=== PATIENT | male | born 1950 | race Caucasian/White ===

== ENCOUNTER 2021-07-20 08:21 | Outpatient (CLI) | payer MEDICARE, OTHER, SELFPAY ==
--- NOTE | 2021-07-20 08:25 | USCV_ITS ---
Yandel Jennings Age: 70 Gender: M : 1950 Exam Date: 07/20/2021 08:42 Ordering Phys: Marivel Taylor NP Technologist: [place] [facility] [place]: short of breath BP: 150 / 85 HR: 58 Rhythm: Other Technical Quality: Adequate MEASUREMENTS (Male / Female) Normal Values 2D ECHO LV Diastolic Diameter PLAX 5.1 cm 4.2 - 5.9 / 3.9 - 5.3 cm LV Systolic Diameter PLAX 3.2 cm IVS Diastolic Thickness 1.2 cm 0.6 - 1.0 / 0.6 - 0.9 cm IVS Systolic Thickness 1.3 cm LVPW Diastolic Thickness 1.0 cm 0.6 - 1.0 / 0.6 - 0.9 cm LVPW Systolic Thickness 1.3 cm LVOT Diameter 2.1 cm LV Ejection Fraction 2D Teich 62.0 % LV Ejection Fraction MOD 2C 60.1 % LV Ejection Fraction 2C AL 59.5 % LA Diameter 4.3 cm M-MODE MV E Point Septal Separation 0.9 cm DOPPLER AV Peak Velocity 202.0 cm/s LVOT Peak Velocity 109.0 cm/s AV Area Cont Eq vti 1.5 cm squared AV Area Cont Eq pk 1.8 cm squared MV Area PHT 5.0 cm squared Mitral E to A Ratio 1.0 MV E' Velocity 54.0 cm/s Mitral E to MV E' Ratio 11.9 Mitral E to LV E' Lateral Ratio 11.3 Mitral E to LV E' Septal Ratio 12.7 TR Peak Velocity 244.2 cm/s TR Peak Gradient 23.9 mmHg TV Peak E Velocity 130.0 cm/s Right Atrial Pressure 3.0 mmHg Pulmonary Artery Systolic Pressu 26.9 mmHg PV Peak Velocity 115.0 cm/s FINDINGS Left Ventricle Normal left ventricular size. LV systolic function is normal with EF of 55-60%. No regional wall motion abnormalities. Right Ventricle The right ventricle is normal in size and function. Right Atrium The right atrium is dilated Left Atrium The left atrium is dilated Mitral Valve Structurally normal mitral valve without significant stenosis or prolapse. There is mild mitral regurgitation. Aortic Valve Aortic valve is thickened without significant stenosis. There is no aortic regurgitation. Tricuspid Valve Structurally normal tricuspid valve without significant stenosis. Mild tricuspid regurgitation. Pulmonic Valve Structurally normal pulmonic valve without significant stenosis. There is no pulmonic regurgitation. Pericardium Normal pericardium without effusion. Aorta Normal ascending aorta dimension. IVC CONCLUSIONS LV systolic function is normal with EF of 55-60% Biatrial enlargement Mild mitral regurgitation. Aortic valve is thickened however no significant stenosis. Mild tricuspid regurgitation. Compared to prior echocardiogram from 03/03/2016, no significant changes are seen Farhat Munoz MD (Electronically Signed) Final Date: 01 August 2021 13:56 S
== END 2021-07-20 08:22 | disposition home or self-care (01) ==
LOC: RAD 08:22
PROVIDERS: Family Provider Family Medicine; PCP Family Medicine; Visit Provider Nurse Practitioner Family
DX: I25.10 Atherosclerotic heart disease of native coronary artery without angina pectoris (principal); I10 Essential (primary) hypertension; I08.3 Combined rheumatic disorders of mitral, aortic and tricuspid valves
CPT/HCPCS: 93306

== ENCOUNTER → 2021-08-06 08:59 | Outpatient (BNVA) | payer MEDICARE, OTHER, SELFPAY | PROVIDERS: Family Provider Family Medicine; PCP Nurse Practitioner Family; Visit Provider Nurse Practitioner Family | DX: I25.10 Atherosclerotic heart disease of native coronary artery without angina pectoris (principal); I10 Essential (primary) hypertension; F17.210 Nicotine dependence, cigarettes, uncomplicated | CPT/HCPCS: 99214 ==

== ENCOUNTER 2021-09-04 09:39 | Outpatient (CLI) | payer MEDICARE, OTHER, SELFPAY ==
[2021-09-04 10:22] VITALS: BMI 25.6
--- NOTE | 2021-09-04 10:22 | ECG_ITS ---
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 Interpretive Statements NAME OF STUDY: LEXISCAN SESTAMIBI STRESS TEST INDICATION: [Shortness of Breath, ] Procedure: At the baseline, the blood pressure was 155/73 mmHg with a heart rate of 48 bpm. The electrocardiogram showed sinus bradycardia, normal axis with normal ST and T's. The Lexiscan was infused over a period of 20 seconds. A total of 0.4 mg of Lexiscan was infused. The stress phase was continued for a total of 5 minutes. Heart rate was at the end of stress phase was 62 bpm and a blood pressure of 153/63 mmHg. The EKG at the peak infusion revealed since normal sinus rhythm with no significant ST-T wave changes. Sestamibi was injected 20 seconds after the Lexiscan infusion. Blood pressure at the end of recovery phase was 153/63 mmHg with a heart rate of 62 bpm. Conclusion: 1. Normal EKG response to Lexiscan infusion 2. No Lexiscan induced chest pain or cardiac arrhythmia. 3. Normal blood pressure and heart rate response. 4. Sestamibi/sestamibi perfusion scan pending; see separate report. Electronically Signed On 09-15-2021 12:23:39 CDT by Farhat Munoz M.D. [email or web address]
--- NOTE | 2021-09-04 10:23 | NMCV_ITS ---
NM dante perf SPECT r/s* [id number] Yandel Jennings Age: 71 Gender: M : 1950 Exam Date: 09/04/2021 11:31 Ordering Phys: Marivel Taylor NP Technologist: DAVID Meza Exam Location: [facility] Indications: CHEST PAIN STRESS TEST Please see separate stress test report [facility] for full findings IMAGE PROTOCOL Rest/Stress 1 Lexiscan Day Radiopharmaceutical Dose (mCi) Administration Site Administered by Rest: Tc-99m 10.6 IV DAVID Carpenter Sestamibi Stress:Tc-99m 32.5 IV DAVID Carpenter Sestamibi Rest: 04-Sep-2021 60 Discovery 630 Stress: 04-Sep-2021 30 Discovery 630 0.4mg Lexiscan. Images obtained in supine and prone position. SPECT RESULTS Technical Quality: Excellent Raw Data Analysis: Normal Image Corrections: No attenuation or motion correction applied Summed Stress Score: 8 Summed Rest Score: 10 Summed Difference Score: 1 PERFUSION FINDINGS There is a large sized, mostly fixed perfusion defect seen in the apical inferior, inferior and inferolateral wall. 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 FUNCTIONAL RESULTS (calculated via Gated SPECT) Stress Image LV EF (%): 54 Stress EDV (mL):144 TID: 1.09 Stress ESV (mL):66 FUNCTIONAL FINDINGS: There is normal left ventricular systolic function. IMPRESSIONS 1. Abnormal myocardial perfusion imaging with large sized infarct seen in left circumflex artery and RCA territory with small area of nany-infarct ischemia in the RCA territory. 2. LV systolic function is normal. Farhat Munoz MD (Electronically Signed) Final Date: 06 September 2021 10:35 S
[2021-09-04] MEDS: regadenoson 0.4 Mg/5 ml Syringe IVP (11:55)
[2021-09-04 12:18] VITALS: BP 153/67; PULSE 60
== END 2021-09-04 09:40 | disposition home or self-care (01) ==
LOC: CDL 09:42
PROVIDERS: PCP Nurse Practitioner Family; Visit Provider Nurse Practitioner Family
DX: I25.10 Atherosclerotic heart disease of native coronary artery without angina pectoris (principal); I10 Essential (primary) hypertension; R07.89 Other chest pain
CPT/HCPCS: 78452; 93017; A9500; J2785

== ENCOUNTER → 2021-09-19 11:01 | Outpatient (BNVA) | payer MEDICARE, OTHER, SELFPAY | PROVIDERS: PCP Nurse Practitioner Family; Visit Provider Internal Medicine Cardiovascular Disease | DX: R94.39 Abnormal result of other cardiovascular function study (principal); I25.118 Atherosclerotic heart disease of native coronary artery with other forms of angina pectoris; I10 Essential (primary) hypertension; E78.49 Other hyperlipidemia; R06.02 Shortness of breath; F17.210 Nicotine dependence, cigarettes, uncomplicated | CPT/HCPCS: 99214 ==

== ENCOUNTER 2021-09-27 08:42 | Outpatient (CLI) | payer MEDICARE, OTHER, SELFPAY ==
[2021-09-27 09:10] LABS: Basophils # 0.1 10^3/uL (0.0-0.1); Basophils % 0.8 %; Eosinophils # 0.4 10^3/uL (0.0-0.8); Eosinophils % 3.2 %; Hematocrit 43.6 % (42.0-52.0); Lymphocytes # 1.1 10^3/uL (0.8-4.8); Lymphocytes % 9.4 %; Mean Corpuscular HGB Conc 34.4 g/dL (30.0-36.0); Mean Corpuscular Hemoglobin 33.4 pg (28.0-34.0); Mean Corpuscular Volume 97.1 fl (80-94); Mean Platelet Volume 9.3 fL (7.4-10.4); Monocytes # 0.9 10^3/uL (0.2-0.9); Monocytes % 7.9 %; Neutrophils # 9.25 10^3/uL (1.8-7.7); Neutrophils % 78.3 %; Nucleated Red Blood Cells % 0 %; Platelet Count 378 10^3/cmm (130-400); Red Blood Count 4.49 10^6/uL (4.1-5.3); Red Cell Distribution Width 13.7 % (12.1-15.1); White Blood Count 11.8 10^3/uL (4.0-10.0)
[2021-09-27 09:39] LABS: INR 1.03 (0.83-1.21); Prothrombin Time (Patient) 13.8 Seconds (12.0-15.1)
[2021-09-27 09:56] LABS: Anion Gap 12.6 (5-19); Blood Urea Nitrogen 15 mg/dL (8-23); Calcium 8.9 mg/dL (8.5-10.5); Carbon Dioxide 28 mmol/L (22-29); Chloride 96 mmol/L (98-107); Glucose 245 mg/dL (65-115); Osmolality Calculated 285 mOsm/kg (285-295); Potassium 3.6 mmol/L (3.5-5.1); Sodium 133 mmol/L (136-145)
== END 2021-09-27 08:43 | disposition home or self-care (01) ==
LOC: LAB 08:45
PROVIDERS: PCP Nurse Practitioner Family; Visit Provider Internal Medicine Cardiovascular Disease
DX: R94.39 Abnormal result of other cardiovascular function study (principal); I25.10 Atherosclerotic heart disease of native coronary artery without angina pectoris
CPT/HCPCS: 36415; 80048; 85025; 85610; 86850; 86900

== ENCOUNTER 2021-10-01 05:53 | Outpatient (CLI) | payer MEDICARE, OTHER, SELFPAY ==
[2021-10-01] VITALS (42 sets, daily range): BP systolic 117–175; BP diastolic 56–81; PULSE 44–78; RESP 13–22; TEMP 36.6–36.8; O2SAT 88–95; BMI 25.7
[2021-10-01] MEDS: diphenhydrAMINE 50 mg Capsule PO (06:30)
--- NOTE | 2021-10-01 07:00 | XACV_ITS ---
Exam Room: 2 Ht: 185 cm Wt: 88 kg BSA: 2.14 m2 Gender: Male : 1950 Any Known Allergies: Codeine Exam Priority: Routine Procedure(s): Procedure Description: Diagnostic procedure Procedure Description: PCI procedure Procedure Description: Left Heart Catheterization Procedure Description: PTCA Procedure Description: Miscellaneous Procedure Description: ACT Procedure Description: Coronary Angiography Ladarius AGUILAR; Diagnostic Cath Status: Elective Diagnostic Findings * The left main is a medium caliber vessel with no significant stenotic lesions. * The left anterior descending artery is a medium caliber vessel which appears to wrap around the LV apex minimally. The proximal LAD was found to have mild diffuse intimal irregular narrowing. The mid LAD was found to have a long stented segment. The first diagonal branch appears to have its origin from the proximal end of the stented segment. There is a high-grade 90% stenosis in this area. The diagonal artery appeared to be of small to medium caliber vessel. Distal LAD was overall minimal intimal regularities. * Left circumflex artery artery is a medium caliber vessel which appears to give off a very high obtuse marginal branch. This artery appears to bifurcate proximally. One of the bifurcation branches was found to have around 40 to 50% stenosis at the ostium. The circumflex proper appears to bifurcate at the mid segment. No significant stenotic lesions were noted in these vessels. * The right coronary artery is a medium caliber dominant vessel which appears to have extensive stenting from proximal to distal segment. Right after the first RV branch, the stented segment was found to have a high-grade in-stent stenosis of around 95%. The proximal RCA was found to have around 30% narrowing proximally. The PDA branch was found to have no significant stenotic lesions. PCI Status: Urgent PCI Indication: Other Interventional Findings * PROCEDURE NOTE: We engaged RCA with JR4 guide catheter. IV heparin was administered to maintain ACT above 250 S. 0.014 run-through guidewire was used to cross mid RCA stenosis. We used 3.5 x 12 mm NC balloon to dilate the severe mid RCA stenosis. Same balloon was used to perform balloon angioplasty of the stent in the proximal RCA. At this time final angiogram was performed that showed excellent stent expansion, no residual stenosis and YEHUDA-3 flow. Wire and guide catheter were removed. 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 * Proximal Right Coronary Artery: 70% stenosis treated with a MDT NC EUPHORA RX [id number] BALLOON. 0% residual stenosis, YEHUDA: 3 flow. * Mid Right Coronary Artery: 95% stenosis treated with a MDT NC EUPHORA RX 3.05L02OG BALLOON. 0% residual stenosis, YEHUDA: 3 flow. Conclusions 1. This 71-year-old white male with a history of coronary artery disease, status post multiple PCI's, presenting with complaints of increasing episodes of chest pain. He had a Myocardial perfusion imaging which revealed areas of fixed and reversible defects with areas of possible nany-infarction ischemia mostly in the distribution of the right coronary artery. In view of his ongoing, worsening of the symptoms in order to further evaluate his coronary status, a cardiac catheterization was recommended. Patient underwent left heart catheterization with left and right coronary angiogram today. The findings are as follows. 2. The right coronary artery was found to have a high-grade in-stent stenosis in the midsegment. The proximal segment of the artery was found to have around 30% tubular narrowing. The left main has no significant obstructive lesion. Left anterior descending artery was found to have a patent stented segment in the mid portion. The first diagonal branch was found to have a high-grade ostial narrowing from 90%, coming off near to the proximal end of the stented segment in the LAD. Left circumflex artery was found to have minimal intimal irregularities and mild stenosis with no significant stenotic lesions. LVEDP was 19mmHg. 3. I reviewed and discussed the cardiac catheterization data with Dr. Munoz. It was thought to be appropriate to consider PCI of the right coronary artery lesion. The ostial diagonal lesion also may be attempted. This lesion could be technically challenging for intervention. Dr. Munoz took over further management of this patient at this point. 4. Successful revascularization of mid and proximal RCA with balloon angioplasty. Diagonal artery is small in size and the lesion is stable from before. We decided to treated medically. 5. Proximal Right Coronary Artery was treated with a Balloon. 6. Mid Right Coronary Artery was treated with a Balloon. Recommendations * Continue aspirin and Plavix. * High intensity statin therapy. * Outpatient cardiology follow up in 4 weeks. Interventional RX Recommendation: PCI w/o planned CABG Diagnostic RX Recommendation: PCI w/o planned CABG Anticoagulation: Heparin LV EDP: 19 mmHg Left Ventriculography Findings: * LV gram was not performed because of the limitations on the dye usage. The LVEDP was 19 mmHg. Pressures Phase:Rest AO : 133 / 68 ( 90 ) @ 8:22:00 AM 131 / 56 ( 84 ) @ 8:32:00 AM 135 / 51 ( 92 ) @ 8:32:00 AM 143 / 60 ( 84 ) @ 8:34:00 AM 144 / 63 ( 93 ) @ 8:52:00 AM 170 / 73 ( 105 ) @ 9:04:00 AM LV : 141 / 3 / 19 @ 8:32:00 AM 129 / 0 / 14 @ 8:32:00 AM Valves Phase:DefaultPhase AV : 0.0 @ 8:14:00 AM AV Mean Gradient: 0.0 @ 8:14:00 AM Clinical Evaluation EBL: 5mL-10mL Procedural Details Procedure Consent Obtained. Admit Source: Out Patient. Pre-Procedure Time Out. Identified patient by full name and date of as verbalized by the patient/guarantor. Does the consent match the physician's order: Yes. Accurate & Complete Informed Consent: Yes. Inpatient/Outpatient History & Physical on Chart: Yes. If H&P is completed, is and addenduem needed: N/A; If yes, is the addendum complete: N/A. Visualize and Verify Site with Patient/Guarantor: N/A. Relevant Radiology Images available: N/A. Pre-op teaching completed and patient verbalized understanding. The risks, benefits, and alternatives of sedation and/or procedure were discussed by physician. The patient agrees to continue. Procedure started. [facility] Clinical Fraility Score: 3: Managing Well. Body Make Up Artist Indications: Worsening Angina. Chest Pain Symptom Assessment: Typical Angina Symptoms. Correct patient, site and procedure confirmed by cath team. Current diagnosis: Chest Pain. PERRLA. 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 Lungs clear x 5 lobes. IV Site on Arrival: 20 gauge in the left forearm. IV Fluids: 0.9% NaCl at KVO. 0 mL infused prior to geophysical laboratory chief. Pre Procedural Pulses: right radial was 1+. Pre Procedural Pulses: right dorsalis pedis was 2+. Pre Procedural Pulses: left dorsalis pedis was 1+. Oxygen started at 2liters/min via nasal canula. right groin was prepped with chloroprep then draped in the usual sterile fashion. right radial was prepped with chloroprep then draped in the usual sterile fashion. Physician notified. Baseline sample Acquired. HR: 50 BPM. Physician arrived. Physician scrubbed in. Immediate Pre-Procedure Time Out. Correct Patient: Yes; Correct Procedure: Yes; Correct Site: Yes; Correct Patient Position: Yes; Correct Supplies: Yes; Dried Flammable Prep: Yes; Blood Products Available: N/A;. Lidocaine 1% infiltrated to the right groin. Arterial access obtained with micropuncture set. A 5 [place] JL4 catheter in over wire. Multiple views taken of left coronary artery. Catheter out. A 5 [place] JR4 catheter in over wire. Multiple views taken of right coronary artery. Catheter removed over the standard wire. Dr. Munoz notified to review cine films. A 5 [place] Angled Pig catheter in over wire. EDP Sample taken: LV 141/3,19; HR: 53 BPM; SpO2: 98%. Pullback taken: LV 129/0,14; AO 131/56(84); Mean: 0mmHg, Peak to Peak: 0mmHg, SEP: 6sec/min; HR: 50 BPM; SpO2: 99%. Catheter out. Side port of sheath attached to Normal Saline flush at KVO to maintain patency. Dr. Munoz scrubbed in to perform intervention. Sheath upsized to a 6 Fr. 6 [place] JR 4 guide catheter was inserted over the wire. Runthrough guidewire was advanced through the guide catheter to lesion in the mid RCA. Balloon inserted to lesion in the mid RCA. Inflation number : 1 A MDT NC EUPHORA RX [id number] BALLOON was prepped and advanced across the Mid RCA , then inflated to 14 KENNETH for 0:18 seconds. Inflation number: 2 The MDT NC EUPHORA RX [id number] BALLOON was reinflated across the Mid RCA, to 12 KENNETH for 0:07 seconds. Inflation number: 3 The MDT NC EUPHORA RX [id number] BALLOON was reinflated across the Mid RCA, to 16 KENNETH for 0:24 seconds. Balloon backed into the Prox RCA lesion. Inflation number: 1 The MDT NC EUPHORA RX 3.72O09HH BALLOON was reinflated across the Prox RCA, to 14 KENNETH for 0:21 seconds. Balloon out. Results checked. Balloon inserted to lesion in the prox RCA. Inflation number: 2 The MDT NC EUPHORA RX 3.43G49WT BALLOON was reinflated across the Prox RCA, to 12 KENNETH for 0:20 seconds. Balloon out. Wire out. Results checked. Guide catheter out. A Right femoral angiogram was performed to determine safe placement of closure device. ACT drawn. Results 224 seconds. Therapeutic limits - pre-heparin administration 90-150 seconds and monitoring heparin during a vascular procedure >250 seconds. Lidocaine 1% infiltrated to the right groin. A Angio-Seal VIP ([facility]) was successful obtaining hemostatsis at the Right Femoral artery insertion site. Lot # [id number] exp 05/24/2022. Angioseal placed without complications. No signs or symptoms of hematoma noted. Sterile dressing applied per usual sterile fashion. Post Procedure: Pulses reassessed and unchanged. PERRLA. 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 No VTE prophylaxis required. Medication's Wasted: Heparin = 1500 u. Medication's Wasted: Other = Fentanyl 25 mcg. Total IV fluids: 89 mL. Post-op diagnosis: Obstructive CAD. Complications: none. Estimated blood loss: 5mL-10mL. Responsiveness - Normal response to verbal stimuli; alert and oriented, PERRLA. Airway - Unaffected, no intervention required; spontaneous ventilation. Circulation: W/N/L, pulses unchanged. Nausea/Vomiting: No. Procedure completed. Patient transferred by bed to 1st floor. Vital chart was stopped. Access Site Site: Right Femoral artery Sheath Size: 5 Fr Hemostasis Method: Angio-Seal VIP ([facility]) Hemostasis Success: Successful Procedure Medications Start: 7:02 AM Stop: 7:02 AM Medication: 0.9% Saline Amount: 75 ml/hr Route: I.V. drip Start: 7:02 AM Stop: 7:02 AM Medication: Fentanyl Amount: 25 mcg Route: I.V. Start: 7:05 AM Stop: 7:05 AM Medication: Versed Amount: 1 mg Route: I.V. Start: 7:05 AM Stop: 7:05 AM Medication: Fentanyl Amount: 25 mcg Route: I.V. Start: 7:22 AM Stop: 7:22 AM Medication: Heparin Amount: 1500 units Route: I.V. Start: 7:22 AM Stop: 7:22 AM Medication: Versed Amount: 1 mg Route: I.V. Start: 7:35 AM Stop: 7:35 AM Medication: Benadryl Amount: 25 mg Route: I.V. Start: 7:51 AM Stop: 7:51 AM Medication: Heparin Amount: 7000 units Route: I.V. Start: 8:07 AM Stop: 8:07 AM Medication: Fentanyl Amount: 25 mcg Route: I.V. I, the attending physician, have reviewed and verified all procedure medications. Yes, all medications given per verbal order History/Risk Factors Hypertension: Yes Dyslipidemia: Yes Peripheral Arterial Disease (PAD): No Myocardial Infarction (NE): No Obesity: No Renal Disease: No Tobacco Use: Current/Recent(w/in 1 year) Prior Interventions PCI: Yes CABG: No Valve Surgery: No Date of PCI: 11/19/2008 Report Signatures Interventional Workflow Finalized by Farhat Munoz MD on 10/13/2021 10:03 AM Diagnostic Workflow Finalized by Dr Luly Durand MD [facility] on 10/01/2021 09:20 AM
--- NOTE | 2021-10-01 07:06 | W.PM.OPSUD ---
Surgery/Procedure H&P Update DATE OF PROCEDURE: October 01, 2021 DATE H&P PERFORMED: 09/19/21 H&P UPDATE INFORMATION: I have reviewed H&P completed within last 30 days, I have examined patient prior to procedure and No changes to prior documentation PREOP DIAGNOSIS: ASHD PRIMARY INDICATION FOR PROCEDURE: Chest pain/ abnormal stress test PLANNED PROCEDURE: Operation Date: 10/01/21 07:00 Proposed Procedures p Left Cardiac Catheterization 04447,R94.39(Left) - Luly Durand MD PATIENT REASSESSED PRIOR TO SEDATION, WITH NO CHANGE NOTED: Yes PHYSICAL EXAM: alert, oriented x 3, clear to auscultation bilaterally and regular rate & rhythm AIRWAY EVAL/ANESTHESIA PLAN: normal airway, see other exam findings, ASA III, Monitored Anesthesia, Local Anesthesia, Risks, benefits & alternatives of sedation and/or procedure discussed and Patient agrees to continue as planned
--- NOTE | 2021-10-01 08:25 | PC.NURSE ---
received patient from systems testing laboratory technician via bed patient resting with eyes closed snoring noted patient is arousable but drowsy procedure site to right groin noted no hematoma or other complications noted patient denies pain
--- NOTE | 2021-10-01 08:56 | PC.NURSE ---
patient bradycardic 45-53 at this time patient resting with eyes closed snoring is noted patient arousable to voice answers questions
--- NOTE | 2021-10-01 11:26 | PC.NURSE ---
dressing to right groin noted to have drainage, drainage continued, dressing removed incision cleaned and re dressed provider notified site remains soft with no notation of hematoma or swelling patient denies pain at site
--- NOTE | 2021-10-01 11:29 | PC.NURSE ---
spoke with providers with concerns that patient is dabetic with no accu check or sliding scale coverage instructions received to obtain accu checks and start a mod sliding scale insulin
[2021-10-01 11:31] LABS: Glucose Point of Care 122 mg/dL (70-110)
[2021-10-01] MEDS: carvedilol 12.5 mg Tablet PO (17:35)
[2021-10-01 21:02] LABS: Glucose Point of Care 161 mg/dL (70-110)
--- NOTE | 2021-10-01 21:45 | PC.NURSE ---
Patient educated of blood sugar and educated that Metformin will be on hold. Patient refusing sliding scale insulin at this time.
[2021-10-02] VITALS: BP 146/69; PULSE 50; RESP 17; TEMP 36.6; O2SAT 90
--- NOTE | 2021-10-02 00:16 | PC.NURSE ---
i reported low pulse 50 to nurse
[2021-10-02 03:43] VITALS: PULSE 50
[2021-10-02 04:00] VITALS: BP 177/83; PULSE 54; RESP 18; TEMP 36.6; O2SAT 96
--- NOTE | 2021-10-02 05:24 | PC.NURSE ---
i reported low pulse 54 to nurse
[2021-10-02 06:22] LABS: Glucose Point of Care 112 mg/dL (70-110)
[2021-10-02 07:32] VITALS: BP 184/77; PULSE 60; RESP 17; TEMP 36.8; O2SAT 97
[2021-10-02] MEDS: aspirin 81 mg EC Tablet PO (08:03)
[2021-10-02] MEDS: losartan 50 mg Tablet 100 MG PO (08:03)
[2021-10-02] MEDS: clopidogrel 75 mg Tablet PO (08:03)
[2021-10-02] MEDS: levothyroxine 175 mcg Tablet PO (08:04)
[2021-10-02] MEDS: multivitamin therapeutic Tablet 1 TAB PO (08:04)
[2021-10-02] MEDS: citalopram 20 mg Tablet 40 MG PO (08:04)
[2021-10-02] MEDS: carvedilol 12.5 mg Tablet 25 MG PO (08:04)
[2021-10-02] MEDS: primidone 50 mg Tablet PO (08:04)
[2021-10-02] MEDS: atorvastatin 40 mg Tablet 80 MG PO (08:04)
[2021-10-02] MEDS: amlodipine 10 mg Tablet PO (08:04)
[2021-10-02] MEDS: isosorbide mononitrate ER 30 mg Tablet PO (08:04)
[2021-10-02 08:36] VITALS: PULSE 78; O2SAT 92
--- NOTE | 2021-10-02 08:38 | PM.PN ---
Subjective Subjective: Patient doing well. No complaints of chest pain or shortness of breath. Femoral access site is normal Vitals/I&O/Wt Last Vital Signs Temp 98.3 F 10/02/21 07:32 Pulse 78 10/02/21 08:36 Resp 17 10/02/21 07:32 BP 184/77 10/02/21 07:32 Pulse Ox 92 10/02/21 08:36 O2 Del Method 10/02/21 08:36 Weight last 48 hrs Weight 195 lb Physical Exam Narrative: GENERAL: Patient is alert, awake and oriented x3. [] NECK: No jugular vein distension. [] HEENT: No cyanosis. No icterus. No pallor. [] HEART: Regular S1 and S2. No murmur, rub or gallop. [] LUNGS: Clear to auscultate bilaterally. [] ABDOMEN: Soft, nontender and nondistended. Positive bowel sounds. No guarding, rebound or tenderness. [] CENTRAL NERVOUS SYSTEM: Grossly nonfocal. [] EXTREMITIES: Lower extremities with no edema bilaterally. Pulses palpable in the lower extremities, both dorsalis pedis and posterior tibial. [] A&P Assessment and plan (1) Abnormal cardiovascular stress test: Status: Acute (2) CAD (coronary artery disease): Status: Acute Qualifiers: Coronary Disease-Associated Artery/Lesion type: [place] artery [place] vs. transplanted heart: [place] heart Associated angina: without angina Qualified Code(s): I25.10 - Atherosclerotic heart disease of [place] coronary artery without angina pectoris (3) HTN (hypertension): Status: Acute Qualifiers: Hypertension type: essential hypertension Qualified Code(s): I10 - Essential (primary) hypertension (4) Hyperlipidemia: Status: Acute Qualifiers: Hyperlipidemia type: other hyperlipidemia Qualified Code(s): E78.49 - Other hyperlipidemia Plan Patient treatment successful revascularization of RCA with balloon angioplasty. He is stable at this time. Continue aspirin and Plavix. High intensity statin therapy. Outpatient cardiology follow up Attestations Medical Necessity Statement*: Care not expected to cross 2 midnights. Patient had presented for outpatient coronary angiogram and underwent successful revascularization of RCA with balloon angioplasty. He is stable to be discharged and going home today. 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 transplanted heart: [place] heart Associated angina: without angina HTN (hypertension) I10 Hypertension type: essential hypertension Hyperlipidemia E78.49 Hyperlipidemia type: other hyperlipidemia
== END 2021-10-02 10:21 | disposition home or self-care (01) ==
LOC: CCL 05:54 → CSU 08:40 → MEDSURG 16:34
PROVIDERS: Internal Medicine; PCP Nurse Practitioner Family; Visit Provider Internal Medicine Cardiovascular Disease
DX: I25.118 Atherosclerotic heart disease of native coronary artery with other forms of angina pectoris (principal); I25.10 Atherosclerotic heart disease of native coronary artery without angina pectoris; I10 Essential (primary) hypertension; E78.5 Hyperlipidemia, unspecified; Z79.82 Long term (current) use of aspirin; Z79.84 Long term (current) use of oral hypoglycemic drugs; F17.210 Nicotine dependence, cigarettes, uncomplicated
CPT/HCPCS: 36415; 36416; 82962; 85347; 92920; 93452; 93458; 96360; 99152; 99153; C1725; C1760; C1769; C1887; C1894; J1200; J1644; J2250; J3010; J3490; J7030; Q0163; Q9967

== ENCOUNTER → 2021-10-09 10:14 | Outpatient (BNVA) | payer MEDICARE, OTHER, SELFPAY | PROVIDERS: PCP Nurse Practitioner Family; Visit Provider Nurse Practitioner Family | DX: I25.118 Atherosclerotic heart disease of native coronary artery with other forms of angina pectoris (principal); I10 Essential (primary) hypertension; F17.210 Nicotine dependence, cigarettes, uncomplicated | CPT/HCPCS: 80048; 99214 ==

== ENCOUNTER → 2021-12-20 11:44 | Outpatient (BNVA) | payer MEDICARE, OTHER, SELFPAY | PROVIDERS: PCP Nurse Practitioner Family; Visit Provider Internal Medicine Cardiovascular Disease | DX: I25.118 Atherosclerotic heart disease of native coronary artery with other forms of angina pectoris (principal); E78.49 Other hyperlipidemia; I10 Essential (primary) hypertension; F17.210 Nicotine dependence, cigarettes, uncomplicated | CPT/HCPCS: 99214 ==

== ENCOUNTER 2022-04-12 07:44 | Outpatient (CLI) | payer MEDICARE, OTHER, SELFPAY ==
--- NOTE | 2022-04-12 07:54 | CT_ITS ---
WS: [id number] LDCT LUNG CANCER SCREENING TECHNIQUE: Noncontrast CT of the chest with coronal and sagittal reformatted images. CLINICAL INFORMATION: HX OF TOBACCO USE COMPARISON: None. DLP: 81.40 mGy.cm DIvol: Mean CTDIvol: 1.60 (mGy) All CT scans at [facility] use at least one of these dose optimization techniques: automat ed exposure control; mA and/or kV adjustment per patient size (includes targeted exams where dose is matched to clinical indication); or iterative reconstruction. FINDINGS: Noncalcified nodule RIGHT upper lobe measuring 5 mm. A few scattered tiny subcentimeter sub pleural nodules. No other suspicious pulmonary parenchymal abnormalities. Normal caliber thoracic aorta. Aortic calcification. Coronary calcification. No mediastinal or hilar lymphadenopathy. Calcified RIGHT hilar nodes. A few calcified granulomas. Adrenal glands are normal. Cholecystectomy clips. Normal GE junction. Hypertrophic changes thoracic spine. CT/CT lung screening [id number] IMPRESSION: LUNG-RADS: 2-Benign Appearance or Behavior FOLLOW UP: 12 Month: Continue annual screening with LDCT
== END 2022-04-12 07:45 | disposition home or self-care (01) ==
LOC: RAD 07:44
PROVIDERS: PCP Nurse Practitioner Family; Visit Provider Nurse Practitioner Family
DX: Z12.2 Encounter for screening for malignant neoplasm of respiratory organs (principal); Z87.891 Personal history of nicotine dependence
CPT/HCPCS: 71271

== ENCOUNTER → 2022-04-24 12:13 | Outpatient (BNVA) | payer MEDICARE, OTHER, SELFPAY | PROVIDERS: PCP Nurse Practitioner Family; Visit Provider Internal Medicine Cardiovascular Disease | DX: R06.02 Shortness of breath (principal); I10 Essential (primary) hypertension; I25.118 Atherosclerotic heart disease of native coronary artery with other forms of angina pectoris; E78.49 Other hyperlipidemia; F17.210 Nicotine dependence, cigarettes, uncomplicated | CPT/HCPCS: 36415; 80048; 83880; 99214 ==

== ENCOUNTER 2022-05-01 09:47 | Outpatient (CLI) | payer MEDICARE, OTHER, SELFPAY ==
[2022-05-01 11:05] LABS: Anion Gap 12.4 (5-19); Blood Urea Nitrogen 17 mg/dL (8-23); Calcium 8.8 mg/dL (8.5-10.5); Carbon Dioxide 28 mmol/L (22-29); Chloride 94 mmol/L (98-107); Glucose 226 mg/dL (65-115); NT Pro B Type Natriuretic Pept 167 pg/mL (0-125); Osmolality Calculated 279 mOsm/kg (285-295); Potassium 4.4 mmol/L (3.5-5.1); Sodium 130 mmol/L (136-145)
== END 2022-05-01 09:48 | disposition home or self-care (01) ==
LOC: LAB 09:53
PROVIDERS: PCP Nurse Practitioner Family; Visit Provider Internal Medicine Cardiovascular Disease
DX: I25.118 Atherosclerotic heart disease of native coronary artery with other forms of angina pectoris; R06.02 Shortness of breath
CPT/HCPCS: 36415; 80048; 83880

== ENCOUNTER 2022-05-23 19:28 | Emergency (ER) | payer MEDICARE, OTHER, SELFPAY ==
--- NOTE | 2022-05-23 19:46 | XRR_ITS ---
PROCEDURE INFORMATION: Exam: XR Chest Exam date and time: 05/23/2022 8:20 PM Age: 71 years old Clinical indication: Fever and shortness of breath; Prior surgery; Surgery type: Stents; Additional info: Fever, high BP, SOB TECHNIQUE: Imaging protocol: Radiologic exam of the chest. Views: 2 views. COMPARISON: CT lung screening [id number] 04/12/2022 8:01 AM FINDINGS: Lungs: Unremarkable. No consolidation. Pleural spaces: Unremarkable. No pleural effusion. No pneumothorax. Heart/Mediastinum: Aortic calcifications. No cardiomegaly. Vasculature: Coronary artery calcifications and/or stenting. Bones/joints: No acute findings. XR/XR chest 2V* [id number] IMPRESSION: No acute findings.
[2022-05-23 20:05] VITALS: BP 145/73; PULSE 58; RESP 17; O2SAT 94; BMI 25.7
--- NOTE | 2022-05-23 20:19 | ECG_ITS ---
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 Measurements Intervals [place] Rate: 57 P: 58 [place]: 159 QRS: 72 QRSD: 110 T: 5 QT: 434 QTc: 423 Interpretive Statements SINUS BRADYCARDIA WITH SINUS ARRHYTHMIA Compared to ECG 07/14/2017 14:52:04 Sinus rhythm no longer present Electronically Signed On 05-24-2022 15:54:16 CDT by Farhat Munoz M.D. [email or web address]/[id number]
[2022-05-23 20:52] LABS: Basophils # 0.1 10^3/uL (0.0-0.1); Basophils % 0.5 %; Eosinophils # 0.3 10^3/uL (0.0-0.8); Eosinophils % 1.5 %; Hemoglobin 14.8 g/dL (11.7-16.6); Lymphocytes % 5.7 %; Mean Corpuscular HGB Conc 33.6 g/dL (30.0-36.0); Mean Corpuscular Hemoglobin 33.1 pg (28.0-34.0); Mean Corpuscular Volume 98.4 fl (80-94); Mean Platelet Volume 8.8 fL (7.4-10.4); Monocytes # 1.1 10^3/uL (0.2-0.9); Monocytes % 6.8 %; Neutrophils # 14.21 10^3/uL (1.8-7.7); Neutrophils % 84.8 %; Nucleated Red Blood Cells % 0 %; Platelet Count 383 10^3/cmm (130-400); Red Blood Count 4.47 10^6/uL (4.1-5.3); Red Cell Distribution Width 12.8 % (12.1-15.1); White Blood Count 16.8 10^3/uL (4.0-10.0)
--- NOTE | 2022-05-23 21:01 | W.ED.ARRPALP ---
HPI - Arrhythmia/Palpitations General: Chief Complaint: Chest Pain Stated Complaint: BP High\Fever\Confused Time Seen by Provider: 05/23/22 20:19 Source: patient Mode of arrival: ambulatory Limitations: no limitations History of Present Illness: 71-year-old male states that at 6 PM tonight he started to feel clammy and was having hypertension and had some dizziness. He denies any chest pain he does have a history of coronary artery disease and stents in the past. States his symptoms resolved after about 20 minutes he has been feeling completely normal since then he denies any shortness of breath denies any vomiting or diarrhea Associated symptoms: Deny nausea or vomiting Review of Systems Const: Denies: fever(s), chills, body aches or change in appetite Eyes: Denies: blurry vision or eye discomfort ENMT: Denies: throat pain or dental pain Card: Denies: chest pain Resp: Denies: dyspnea GI: Denies: abdominal pain, nausea, vomiting or diarrhea : Denies: dysuria Musc: Denies: neck pain or back pain Skin/Breast: Denies: rash Neuro: Denies: headache(s) Psych: Denies: depression Gigi/Lymph: Denies: easy bruising All/Imm: Denies: urticaria PFSH ED PFSH: Medical History CAD (coronary artery disease) HTN (hypertension) Hyperlipidemia Surgical History S/P PTCA (percutaneous transluminal coronary angioplasty) 2005 Family History Father CAD (coronary artery disease) Diabetes Myocardial infarction Grandfather CAD (coronary artery disease) Cancer Diabetes Family/Other CAD (coronary artery disease) at 50 Cancer Chronic kidney disease (CKD) Diabetes Lung disease Mother Cancer Lung disease Denies family history of Clotting disorder Dementia Suicide Anesthesia complication Bleeding disorder Stroke Social History Smoking and tobacco status: current every day smoker cigarettes Packs smoked per day: 1 Alcohol intake: current Alcohol intake frequency: few times a week Alcohol type: beer Physical Exam Const: COMMON NORMALS: no acute distress, patient oriented x3 and healthy appearing HENMT: COMMON NORMALS: normocephalic and atraumatic HEAD & SCALP: normocephalic and atraumatic Eye: COMMON NORMALS: Equal, round and reactive pupils present and EOMs intact bilaterally PUPIL: Yes Equal, round and reactive pupils present Neck/C-Spine: COMMON NORMALS: full ROM and supple Chest: COMMONS NORMALS: normal inspection of the chest and normal palpation of entire chest wall Resp: COMMON NORMALS: normal respiratory effort, No retractions, No use of accessory muscles and clear to auscultation bilaterally AUSCULTATION: clear to auscultation bilaterally Cardio: COMMON NORMALS: regular rate, regular rhythm and No murmurs present (Cardio) RATE: regular rate RHYTHM: regular rhythm GI: COMMON NORMALS: Normal to inspection, nondistended, normoactive bowel sounds present, Soft to palpation, non-tender and no masses PALPATION: Yes Soft to palpation Extremity: COMMON NORMALS: normal to inspection and full ROM Neuro: COMMON NORMALS: patient oriented x3, moves all extremities and no focal motor deficits Psych: COMMON NORMALS: mental status grossly normal, Normal thought process present and cooperative THOUGHT PROCESS: Normal thought process present Skin: COMMON NORMALS: no rashes or lesions noted and no wounds GENERAL SKIN EXAM: no rashes or lesions noted Course Vital Signs: Vital signs: Vital Signs Pulse Rate 54 L 05/23/22 21:42 Respiratory Rate 18 05/23/22 21:42 Blood Pressure 150/67 05/23/22 21:42 Pulse Oximetry 92 05/23/22 21:42 Oxygen Delivery Me thod 05/23/22 21:42 MDM - Arrhythmia/Palpitations Medical Decision Making Patient presents here with chest pain episode had minimal pain that lasted 30 minutes he has been pain-free here EKG and troponins here are normal I feel he is stable for discharge at this time he is to follow-up with his final coat sprayer Dr. Durand in 3 to 5 days return if worsening he understands agrees the plan. Lab Data 05/23/22 20:47 05/23/22 20:47 Radiology Impressions Chest X-Ray 05/23/22 19:46 IMPRESSION: No acute findings. Laboratory Results WBC 16.8 10^3/uL (4.0-10.0) H 05/23/22 20:47 RBC 4.47 10^6/uL (4.1-5.3) 05/23/22 20:47 Hgb 14.8 g/dL (11.7-16.6) 05/23/22 20:47 Hct 44.0 % (42.0-52.0) 05/23/22 20:47 MCV 98.4 fl (80-94) H 05/23/22 20:47 MCH 33.1 pg (28.0-34.0) 05/23/22 20:47 MCHC 33.6 g/dL (30.0-36.0) 05/23/22 20:47 RDW 12.8 % (12.1-15.1) 05/23/22 20:47 Plt Count 383 10^3/cmm (130-400) 05/23/22 20:47 MPV 8.8 fL (7.4-10.4) 05/23/22 20:47 Neut % (Auto) 84.8 % 05/23/22 20:47 Lymph % (Auto) 5.7 % 05/23/22 20:47 [place] % (Auto) 6.8 % 05/23/22 20:47 Eos % (Auto) 1.5 % 05/23/22 20:47 Baso % (Auto) 0.5 % 05/23/22 20:47 Neut # (Auto) 14.21 10^3/uL (1.8-7.7) H 05/23/22 20:47 Lymph # (Auto) 1.0 10^3/uL (0.8-4.8) 05/23/22 20:47 [place] # (Auto) 1.1 10^3/uL (0.2-0.9) H 05/23/22 20:47 Eos # (Auto) 0.3 10^3/uL (0.0-0.8) 05/23/22 20:47 Baso # (Auto) 0.1 10^3/uL (0.0-0.1) 05/23/22 20:47 Nucleated RBC % (auto) 0 % 05/23/22 20:47 Nucleated RBCs # 0.0 /100WBC 05/23/22 20:47 Sodium 135 mmol/L (136-145) L 05/23/22 20:47 Potassium 3.5 mmol/L (3.5-5.1) 05/23/22 20:47 Chloride 96 mmol/L (98-107) L 05/23/22 20:47 Carbon Dioxide 29 mmol/L (22-29) 05/23/22 20:47 Anion Gap 13.5 (5-19) 05/23/22 20:47 BUN 21 mg/dL (8-23) 05/23/22 20:47 Creatinine 0.7 mg/dL (0.7-1.2) 05/23/22 20:47 GFR Calculation Not Reportable 05/23/22 20:47 Glucose 145 mg/dL (65-115) H 05/23/22 20:47 Calculated Osmolality 286 mOsm/kg (285-295) 05/23/22 20:47 Calcium 9.2 mg/dL (8.5-10.5) 05/23/22 20:47 Total Bilirubin 0.3 mg/dL (0.15-1.2) 05/23/22 20:47 AST 20 U/L (0-40) 05/23/22 20:47 ALT 24 U/L (0-41) 05/23/22 20:47 Alkaline Phosphatase 56 U/L (40-130) 05/23/22 20:47 Troponin T Baseline 11 ng/L (0-15) 05/23/22 20:47 Troponin T 120 Minute 9.09 ng/L (0-15) 05/23/22 22:50 Total Protein 7.1 g/dL (6.6-8.7) 05/23/22 20:47 Albumin 3.9 g/dL (3.5-5.2) 05/23/22 20:47 Globulin 3.2 g/dL (1.3-4.6) 05/23/22 20:47 EKG Data EKG 1: EKG interpretation date: 05/23/22 EKG interpretation time: 20:19 Interpretation: sinus stuart hr [address] or t wave abnormalities qrs 110 qtc 427 Other EKG comments: Chest X-Ray 05/23/22 19:46 IMPRESSION: No acute findings. Discharge Plan Discharge Patient Disposition: Home Clinical Impression: Chest pain Condition: Stable Prescriptions: No Action multivitamin Tablet 1 tab PO DAILY meloxicam 15 mg tablet 15 mg PO DAILY metformin 500 mg tablet 500 mg PO BID Hold Instructions: Resume on 10/04/21. aspirin [Adult Low Dose Aspirin] 81 mg tablet,delayed release (DR/EC) 81 mg PO DAILY levothyroxine 150 mcg capsule 175 mcg PO DAILY nitroglycerin [Nitrostat] 0.4 mg tablet, sublingual 0.4 mg SUBLINGUAL Q5M PRN (Reason: chest pain) Qty: 25 3RF Rx Instructions: do not exceed 3 doses per episode primidone 50 mg tablet 50 mg PO DAILY carvedilol 12.5 mg tablet See Rx Instructions PO BID Qty: 180 3RF Rx Instructions: 2 tab in AM, 1 tab in PM PO twice a day; clopidogrel 75 mg tablet 75 mg PO DAILY Qty: 90 3RF valsartan 160 mg tablet 320 mg PO DAILY Qty: 90 3RF citalopram 40 mg tablet 40 mg PO DAILY glipizide 10 mg tablet 10 mg PO BID fluticasone propionate 50 mcg/actuation spray,suspension 1 spray intranasal DAILY isosorbide mononitrate 60 mg tablet extended release 24 hr 60 mg PO DAILY Qty: 90 2RF amlodipine 10 mg tablet 10 mg PO DAILY Qty: 90 3RF rosuvastatin 20 mg tablet 20 mg PO DAILY Qty: 90 3RF furosemide 40 mg tablet 40 mg PO DAILY Qty: 90 3RF potassium chloride 20 mEq tablet extended release 20 meq PO DAILY Qty: 90 3RF Discharge Orders: Discharge ED (Routine); Ordered 05/23/22 Ordered By: Emmanuel Alejandre Referrals: Marivel Taylor NP [Primary Care Provider] - Discharge Diet: Advance as tolerated Discharge Activity: Resume usual activity Patient Instructions: Chest Pain (ED) Coding Level of Care Code ED Cottonseed Meat Presser for Armando Kay
[2022-05-23 21:20] LABS: Alanine Aminotransferase 24 U/L (0-41); Albumin Level 3.9 g/dL (3.5-5.2); Alkaline Phosphatase 56 U/L (40-130); Anion Gap 13.5 (5-19); Aspartate Amino Transferase 20 U/L (0-40); Blood Urea Nitrogen 21 mg/dL (8-23); Calcium 9.2 mg/dL (8.5-10.5); Carbon Dioxide 29 mmol/L (22-29); Chloride 96 mmol/L (98-107); Globulin 3.2 g/dL (1.3-4.6); Glucose 145 mg/dL (65-115); Osmolality Calculated 286 mOsm/kg (285-295); Potassium 3.5 mmol/L (3.5-5.1); Sodium 135 mmol/L (136-145); Total Bilirubin 0.3 mg/dL (0.15-1.2); Total Protein 7.1 g/dL (6.6-8.7)
[2022-05-23 21:39] LABS: Troponin(5th) Baseline 11 ng/L (0-15)
[2022-05-23 21:42] VITALS: BP 150/67; PULSE 54; RESP 18; O2SAT 92
[2022-05-23 22:30] VITALS: BP 154/80; PULSE 50; RESP 19; O2SAT 94
[2022-05-23 23:12] LABS: Troponin 5 2HR 9.09 ng/L (0-15)
[2022-05-23 23:30] VITALS: BP 157/72; PULSE 56; RESP 21; O2SAT 93
[2022-05-23 23:42] VITALS: BP 157/72; PULSE 57; RESP 22; O2SAT 96
[2022-05-23 23:49] LABS: Troponin 5 2HR Delta 1.91 ABS# (0-10)
--- NOTE | 2022-05-24 11:56 | DCPLANNER ---
Addendum entered by Nathalia Azevedo 06/05/22 09:12: Patient had a follow up appointment scheduled with heart care - patient did attend appointment Addendum entered by Nathalia Azevedo 05/29/22 08:20: Patient has a follow up appointment scheduled for Saturday, June 04, 2022 at 2:15 with ASSISTANT CORPORATION COUNSEL, Ansley Wei at [facility]. Original Note: credit office manager had message to schedule a follow up appointment for patient with cardiology. credit office manager sent patients information to the front office staff at [facility]. Patients information will be printed and reviewed. Clinic will call patient with appointment information.
== END 2022-05-23 23:43 | disposition home or self-care (01) ==
PROVIDERS: Nurse Practitioner Family; Emergency Provider Emergency Medicine; PCP Nurse Practitioner Family
DX: R07.9 Chest pain, unspecified (principal); Z79.84 Long term (current) use of oral hypoglycemic drugs; Z79.82 Long term (current) use of aspirin; Z79.02 Long term (current) use of antithrombotics/antiplatelets; F17.210 Nicotine dependence, cigarettes, uncomplicated; I25.10 Atherosclerotic heart disease of native coronary artery without angina pectoris; I10 Essential (primary) hypertension; E78.5 Hyperlipidemia, unspecified
CPT/HCPCS: 36415; 71046; 80053; 84484; 85025; 93005; 99285

== ENCOUNTER → 2022-06-04 13:51 | Outpatient (BNVA) | payer MEDICARE, OTHER, SELFPAY | PROVIDERS: PCP Nurse Practitioner Family; Visit Provider Nurse Practitioner Family | DX: I25.118 Atherosclerotic heart disease of native coronary artery with other forms of angina pectoris (principal); I10 Essential (primary) hypertension; F17.210 Nicotine dependence, cigarettes, uncomplicated; Z79.82 Long term (current) use of aspirin | CPT/HCPCS: 99214 ==

== ENCOUNTER 2022-08-06 09:37 | Inpatient (IN) | payer MEDICARE, OTHER, SELFPAY ==
[2022-08-06] VITALS (33 sets, daily range): BP systolic 114–176; BP diastolic 57–90; PULSE 48–91; RESP 15–33; TEMP 36.8; O2SAT 86–98; BMI 25.0
--- NOTE | 2022-08-06 09:47 | W.ED.CHESTPA ---
HPI - Chest Pain General: Chief Complaint: Chest Pain Stated Complaint: Stemi Time Seen by Provider: 08/06/22 09:44 Source: patient Mode of arrival: ambulatory History of Present Illness: 71-year-old male presents emergency room with complaint of chest pain that began this morning. Patient has a cardiac history has previously had stents the last angiography was in September 25, 2021. He has a proximal LAD stent and a mid and proximal RCA stent in September he had a in-stent stenosis that was treated with balloon angioplasty. He had other lesions that were not amenable to intervention including a branch of the LAD that was at 90%. This morning while at rest he began having chest pain. He has no ST elevation his EKG remains unchanged from previous he still has some mild chest discomfort. MD complaint: chest pain Pertinent past history: coronary artery disease Onset (ago): hour(s) Timing of current episode: constant Prior episodes: Yes Onset: during rest Pain location: substernal and left chest Pain radiation: neck and left shoulder Quality: aching and heaviness Relieving factors: nitroglycerin Exacerbating factors: nothing Associated symptoms: Deny abdominal pain, diaphoresis, dyspnea, fever(s), leg edema, nausea, palpitations, sense of impending doom, syncope or vomiting Treatment prior to arrival: nitroglycerin Risk Factors: Coronary artery disease risk factors: diabetes, hyperlipidemia and hypertension Review of Systems Const: Denies: fever(s), chills, fatigue, malaise or diaphoresis ENMT: Denies: throat pain, ear or mastoid pain, nasal discharge or nasal congestion Card: Reports: chest pain; Denies: palpitations, irregular heart rhythm, edema or syncope Resp: Denies: dyspnea GI: Denies: abdominal pain, nausea or vomiting : Denies: flank pain, dysuria, urinary frequency or urinary urgency Musc: Denies: neck pain or back pain Skin/Breast: Denies: rash or pruritus PFSH ED PFSH: Medical History Abnormal cardiovascular stress test (08/2021) CAD (coronary artery disease) COPD (chronic obstructive pulmonary disease) Diabetes mellitus, type II Graves disease Status post radioactive iodine treatment now with hypothyroidism History of cerebral angiography 09/2021 at [facility] - mild plaque in bilateral carotids at carotid bulb (20-25%), at level of skull base, 70% concentric stenosis, high grade 90-95% stenosis at V4 segment of PICA HTN (hypertension) Hyperlipidemia Secondary hypothyroidism Status post treatment for Graves' disease Surgical History History of cardiac catheterization ~2005 LAD and RCA stents placed; 2016 patent RCA and LAD stents; 09/2021 LAD stent patent, 90% 1st diagonal, patent circ and OM, RCA with 95% in-stent restenosis treated with balloon angioplasty S/P appendectomy S/P cholecystectomy (2018) S/P PTCA (percutaneous transluminal coronary angioplasty) 2021 S/P splenectomy Status post incision and drainage (2017) gluteal/perineal abscess Family History Father CAD (coronary artery disease) Diabetes Myocardial infarction Grandfather CAD (coronary artery disease) Cancer Diabetes Family/Other CAD (coronary artery disease) at 50 Cancer Chronic kidney disease (CKD) Diabetes Lung disease Mother Cancer Lung disease Denies family history of Clotting disorder Dementia Suicide Anesthesia complication Bleeding disorder Stroke Social History Smoking and tobacco status: current every day smoker cigarettes Packs smoked per day: 1 Alcohol intake: current Alcohol intake frequency: few times a week Alcohol type: beer Substance/Drug Use: former Physical Exam Const: GENERAL APPEARANCE: cooperative and comfortable ORIENTATION/CONSCIOUSNESS: Yes awake, Yes oriented to person, Yes oriented to place and Yes oriented to time HENMT: COMMON NORMALS: normocephalic, atraumatic and hearing grossly normal bilaterally HEAD & SCALP: normocephalic and atraumatic Resp: COMMON NORMALS: normal respiratory effort, No retractions, No use of accessory muscles and clear to auscultation bilaterally AUSCULTATION: clear to auscultation bilaterally Cardio: COMMON NORMALS: regular rate, regular rhythm and No murmurs present (Cardio) RATE: regular rate RHYTHM: regular rhythm GI: COMMON NORMALS: Soft to palpation and No hepatosplenomegaly present AUSCULTATION: Yes normoactive bowel sounds PALPATION: Yes Soft to palpation, No Tenderness to palpation present (GI), No Guarding due to palpation present (GI) and Yes No hepatosplenomegaly present Extremity: COMMON NORMALS: normal to inspection, capillary refill normal, no clubbing, cyanosis or edema, no calf tenderness and no pedal edema Neuro: SENSORIUM/ORIENTATION: Yes oriented to person, Yes oriented to place and Yes oriented to time Skin: COMMON NORMALS: no rashes or lesions noted GENERAL SKIN EXAM: no rashes or lesions noted Course Vital Signs: Vital signs: Vital Signs Temperature 98.2 F 08/06/22 09:45 Pulse Rate 49 L 08/07/22 06:00 Respiratory Rate 19 H 08/07/22 04:02 Blood Pressure 150/84 08/07/22 05:55 Pulse Oximetry 96 08/07/22 04:02 Oxygen Delivery Me thod Nasal Cannula 08/06/22 20:33 Oxygen Flow Rate 3 08/06/22 20:33 MDM - Chest Pain Medical Decision Making EKG on arrival compared to previous EKG no significant changes. Patient reported the pain at 10 of 10 at home relieved by nitro in route after IV nitro applied reports pain has resolved he actually is complaining still right leg pain he has appropriate pulses at the femoral popliteal dorsalis pedis posterior tibialis. Sensation is normal no sign of CVA. Reviewed his previous angiography he has known heart disease with stents in the RCA and proximal and mid and in the proximal LAD also has lesions not amenable to intervention on branch of the LAD. He had a repeat cath last September that showed a in-stent stenosis which was angioplastied. I discussed with Dr. Riley and actually did the previous angiogram. We will admit to hospitalist consult cardiology discussed with patient. Continue nitro drip. We will also give Lovenox. Medical Records I reviewed the patient's medical records. Lab Data I reviewed the patient's lab results. 08/07/22 05:20 08/07/22 05:20 Radiology Impressions Chest X-Ray 08/06/22 09:48 IMPRESSION: 1. New prominent reticulations and interstitial thickening at the RIGHT lung base. May be an area of mild edema or developing pneumonitis. No pneumonia. 2. Mild emphysema. Venous Duplex 08/06/22 16:54 IMPRESSION: No evidence of deep vein thrombosis. Laboratory Results WBC 10.5 10^3/uL (4.0-10.0) H 08/06/22 09:16 RBC 4.58 10^6/uL (4.1-5.3) 08/06/22 09:16 Hgb 15.1 g/dL (11.7-16.6) 08/06/22 09:16 Hct 44.1 % (42.0-52.0) 08/06/22 09:16 MCV 96.3 fl (80-94) H 08/06/22 09:16 MCH 33.0 pg (28.0-34.0) 08/06/22 09:16 MCHC 34.2 g/dL (30.0-36.0) 08/06/22 09:16 RDW 13.1 % (12.1-15.1) 08/06/22 09:16 Plt Count 367 10^3/cmm (130-400) 08/06/22 09:16 MPV 9.2 fL (7.4-10.4) 08/06/22 09:16 Neut % (Auto) 78.0 % 08/06/22 09:16 Lymph % (Auto) 10.3 % 08/06/22 09:16 [place] % (Auto) 8.8 % 08/06/22 09:16 Eos % (Auto) 1.9 % 08/06/22 09:16 Baso % (Auto) 0.5 % 08/06/22 09:16 Neut # (Auto) 8.21 10^3/uL (1.8-7.7) H 08/06/22 09:16 Lymph # (Auto) 1.1 10^3/uL (0.8-4.8) 08/06/22 09:16 [place] # (Auto) 0.9 10^3/uL (0.2-0.9) 08/06/22 09:16 Eos # (Auto) 0.2 10^3/uL (0.0-0.8) 08/06/22 09:16 Baso # (Auto) 0.1 10^3/uL (0.0-0.1) 08/06/22 09:16 Nucleated RBC % (auto) 0 % 08/06/22 09:16 Nucleated RBCs # 0.0 /100WBC 08/06/22 09:16 Sodium 132 mmol/L (136-145) L 08/06/22 09:16 Potassium 3.4 mmol/L (3.5-5.1) L 08/06/22 09:16 Chloride 96 mmol/L (98-107) L 08/06/22 09:16 Carbon Dioxide 27 mmol/L (22-29) 08/06/22 09:16 Anion Gap 12.4 (5-19) 08/06/22 09:16 BUN 16 mg/dL (8-23) 08/06/22 09:16 Creatinine 0.6 mg/dL (0.7-1.2) L 08/06/22 09:16 GFR Calculation Not Reportable 08/06/22 09:16 Glucose 191 mg/dL (65-115) H 08/06/22 09:16 Calculated Osmolality 280 mOsm/kg (285-295) L 08/06/22 09:16 Calcium 8.8 mg/dL (8.5-10.5) 08/06/22 09:16 Total Bilirubin 0.4 mg/dL (0.15-1.2) 08/06/22 09:16 AST 17 U/L (0-40) 08/06/22 09:16 ALT 22 U/L (0-41) 08/06/22 09:16 Alkaline Phosphatase 57 U/L (40-130) 08/06/22 09:16 Troponin T Baseline 11 ng/L (0-15) 08/06/22 09:16 Troponin T 120 Minute 10.87 ng/L (0-15) 08/06/22 11:30 Delta Troponin T -0.13 ABS# (0-10) L 08/06/22 11:30 Total Protein 6.8 g/dL (6.6-8.7) 08/06/22 09:16 Albumin 3.9 g/dL (3.5-5.2) 08/06/22 09:16 Globulin 2.9 g/dL (1.3-4.6) 08/06/22 09:16 Discharge Plan Discharge Patient Disposition: Admitted As Inpatient Admit Provider: Vanna Rai Clinical Impression: Unstable angina, Atherosclerotic heart disease of [place] coronary artery with other forms of angina pectoris, COPD (chronic obstructive pulmonary disease), HTN (hypertension), Diabetes mellitus, type II Condition: Stable Coding Level of Care Code ED Cleaning Laborer for Armando Kay
--- NOTE | 2022-08-06 09:48 | ECG_ITS ---
[facility] Test Date: 2022-08-06 Pat Name: Yandel Jennings Department: Room: Gender: Male Bell Cleaner: : 1950 Requested By: Fermin Mehta Order Number: [id number] Jayashree MD: Eros Orellana M.D. Measurements Intervals [place] Rate: 58 P: 35 [place]: 144 QRS: 62 QRSD: 86 T: 58 QT: 441 QTc: 436 Interpretive Statements SINUS BRADYCARDIA WITH OCCASIONAL SUPRAVENTRICULAR PREMATURE COMPLEXES Compared to ECG 05/23/2022 20:19:50 Sinus arrhythmia no longer present Electronically Signed On 08-06-2022 16:35:42 CDT by Eros Orellana M.D. [email or web address] Irelandselect medical specialty hospital - [email or web address]/store/NU/[id number] f
--- NOTE | 2022-08-06 09:48 | XR_ITS ---
WS: [id number] PORTABLE CHEST HISTORY: Chest pain COMPARISON: 05/23/2022 Hyperinflated lungs. Mild new reticulations at the RIGHT lung base. No areas of dense consolidation. There may be a small amount of fluid overload. No pleural effusion or pneumothorax. Cardiac size: Normal. Mediastinum/Aorta: Mild atherosclerosis aorta. No osseous abnormality seen. XR/XR chest 1V portable [id number] IMPRESSION: 1. New prominent reticulations and interstitial thickening at the RIGHT lung b ase. May be an area of mild edema or developing pneumonitis. No pneumonia. 2. Mild emphysema.
--- NOTE | 2022-08-06 10:00 | PC.NURSE ---
PATIENT 86% ON RA. PATIENT PLACED ON 2 L NC, 95%. PROVIDER NOTIFIED.
[2022-08-06 10:18] LABS: Basophils # 0.1 10^3/uL (0.0-0.1); Basophils % 0.5 %; Eosinophils # 0.2 10^3/uL (0.0-0.8); Eosinophils % 1.9 %; Hematocrit 44.1 % (42.0-52.0); Hemoglobin 15.1 g/dL (11.7-16.6); Lymphocytes # 1.1 10^3/uL (0.8-4.8); Lymphocytes % 10.3 %; Mean Corpuscular HGB Conc 34.2 g/dL (30.0-36.0); Mean Corpuscular Volume 96.3 fl (80-94); Mean Platelet Volume 9.2 fL (7.4-10.4); Monocytes # 0.9 10^3/uL (0.2-0.9); Monocytes % 8.8 %; Neutrophils # 8.21 10^3/uL (1.8-7.7); Nucleated Red Blood Cells % 0 %; Platelet Count 367 10^3/cmm (130-400); Red Blood Count 4.58 10^6/uL (4.1-5.3); Red Cell Distribution Width 13.1 % (12.1-15.1); White Blood Count 10.5 10^3/uL (4.0-10.0)
[2022-08-06 10:33] LABS: Alanine Aminotransferase 22 U/L (0-41); Albumin Level 3.9 g/dL (3.5-5.2); Alkaline Phosphatase 57 U/L (40-130); Anion Gap 12.4 (5-19); Aspartate Amino Transferase 17 U/L (0-40); Blood Urea Nitrogen 16 mg/dL (8-23); Calcium 8.8 mg/dL (8.5-10.5); Carbon Dioxide 27 mmol/L (22-29); Chloride 96 mmol/L (98-107); Globulin 2.9 g/dL (1.3-4.6); Glucose 191 mg/dL (65-115); Osmolality Calculated 280 mOsm/kg (285-295); Potassium 3.4 mmol/L (3.5-5.1); Sodium 132 mmol/L (136-145); Total Bilirubin 0.4 mg/dL (0.15-1.2); Total Protein 6.8 g/dL (6.6-8.7)
[2022-08-06 10:35] LABS: Troponin(5th) Baseline 11 ng/L (0-15)
[2022-08-06] MEDS: nitroglycerin drip 50 MG/250 ML PREMIX IV (10:35)
--- NOTE | 2022-08-06 10:35 | ECG_ITS ---
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 Measurements Intervals [place] Rate: 52 P: 60 [place]: 175 QRS: 74 QRSD: 105 T: 61 QT: 430 QTc: 402 Interpretive Statements SINUS BRADYCARDIA WITH SINUS ARRHYTHMIA POSSIBLE INFERIOR MYOCARDIAL INFARCTION , OF INDETERMINATE AGE [30 ms Q WAVE IN II/aVF] Compared to ECG 08/06/2022 09:42:28 Myocardial infarct finding now present Electronically Signed On 08-06-2022 16:43:52 CDT by Eros Orellana M.D. [id number]
[2022-08-06 12:20] LABS: Troponin 5 2HR 10.87 ng/L (0-15)
[2022-08-06 12:33] LABS: Troponin 5 2HR Delta -0.13 ABS# (0-10)
--- NOTE | 2022-08-06 14:25 | ECG_ITS ---
[facility] Test Date: 2022-08-06 Pat Name: Yandel Jennings Department: Room: 107 Gender: Male Ski Instructor: : 1950 Requested By: Fermin Mehta Order Number: [id number] Jayashree MD: Eros Orellana M.D. Measurements Intervals [place] Rate: 53 P: 21 [place]: 130 QRS: 57 QRSD: 88 T: 20 QT: 421 QTc: 398 Interpretive Statements SINUS BRADYCARDIA WITH SINUS ARRHYTHMIA Compared to ECG 08/06/2022 10:35:08 Myocardial infarct finding no longer present Electronically Signed On 08-06-2022 16:44:44 CDT by Eros Orellana M.D. [email or web address] general [id number]
--- NOTE | 2022-08-06 14:32 | PC.NURSE ---
received from er via stretcher into room 107 at 1400.pt is alert and oriented x 4.sb on monitor (states this is normal for him..rate 50's).on nitroglycerin drip at 15 mcg/min.reports substernal chest pain..non-radiating at present..rating 2/10.also reports pain from right heel,up leg into right groin and right buttock..rates 4/10.oriented to room environment.instructed to notify staff for any increase in pain,sob,numbness..or for any concerns at all.pt verb understanding of instructions.
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
--- NOTE | 2022-08-06 15:00 | PM.CONSULT ---
Providers/Reason For Consult Consulting Physician/Specialty*: Farhat Munoz MD/ Cardiology Reason for Consult*: Unstable angina Requesting Physician: Dr Andujar Attending Physician: Vanna Rai MD Primary Care Provider: Marivel Taylor NP History of Present Illness History of Present Illness Yandel Jennings is a 71 year old male with past medical history of hypertension and CAD has multiple stents presented to the hospital after he called EMS for severe substernal chest pain. It was radiating to the left arm and the jaw. He was exerting himself at that time. He had nausea and sweating associated with it. In the emergency room his chest pain resolved. Troponins did not increase significantly. EKG does not show significant ST-T wave changes. Patient is a poor historian and has multiple other complaints also. He mentions lower extremity discomfort. Also states has increased frequency of stools but has been going on for a while. Review of Systems General: Reports: Other (ROS as per HPI or as otherwise noted here) Const: Reports: fatigue; Denies: fever(s) or change in weight ENMT: Reports: nasal congestion; Denies: throat pain Musc: Reports: extremity pain (right leg foot to groin) Skin/Breast: Denies: rash Neuro: Denies: numbness in extremities or weakness in extremities Medications/Allergies Home Medications Medication Instructions Recorded Confirmed Last Taken Type aspirin 81 mg tablet,delayed 81 mg PO QAM 07/26/19 08/06/22 08/06/22 05:15 History release (Adult Low Dose Aspirin) meloxicam 15 mg tablet 15 mg PO QAM 07/26/19 08/06/22 08/06/22 History metformin 500 mg tablet 500 mg PO BID 07/26/19 08/06/22 08/06/22 05:15 History multivitamin 1 tab PO QAM 07/26/19 08/06/22 08/06/22 History nitroglycerin 0.4 mg sublingual 0.4 mg sublingual Q5M PRN chest 08/18/20 08/06/22 08/06/22 Rx tablet (Nitrostat) pain #25 tabs primidone 50 mg tablet 50 mg PO BEDTIME 04/02/21 08/06/22 08/05/22 History citalopram 40 mg tablet 40 mg PO QAM 09/19/21 08/06/22 08/06/22 05:15 History fluticasone propionate 50 2 spray intranasal DAILY 09/19/21 08/06/22 08/05/22 History mcg/actuation nasal spray,suspension glipizide 10 mg tablet 10 mg PO BID 09/19/21 08/06/22 08/06/22 05:15 History albuterol sulfate 90 mcg/actuation 2 puff inhalation QID PRN 08/06/22 08/06/22 Unknown History aerosol inhaler Shortness Of Breath amlodipine 10 mg tablet 10 mg PO BEDTIME 08/06/22 08/06/22 08/05/22 History carvedilol 12.5 mg tablet See Rx Instructions .Route .COMPLEX 08/06/22 08/06/22 08/06/22 05:15 History clopidogrel 75 mg tablet 75 mg PO QAM 08/06/22 08/06/22 08/06/22 05:15 History dextromethorphan-guaifenesin ER 60 1 tab PO Q12H 08/06/22 08/06/22 08/06/22 History mg-1,200 mg tab,extend release,12hr (Mucinex DM) furosemide 40 mg tablet 40 mg PO QAM 08/06/22 08/06/22 08/06/22 05:15 History isosorbide mononitrate 60 mg 60 mg PO QAM 08/06/22 08/06/22 08/06/22 History tablet,extended release 24 hr levothyroxine 175 mcg tablet 175 mcg PO QA 08/06/22 08/06/22 08/06/22 History olmesartan 40 mg tablet 40 mg PO QAM 08/06/22 08/06/22 08/06/22 History potassium chloride 20 mEq 20 meq PO QAM 08/06/22 08/06/22 08/06/22 05:15 History tablet,extended release rosuvastatin 20 mg tablet 20 mg PO BEDTIME 08/06/22 08/06/22 08/05/22 History Allergies Allergy/AdvReac Type Severity Reaction Status Date / Time codeine Allergy Unknown Unknown Verified 08/06/22 10:55 Current Medications Generic Name Dose Route Start Last Admin Trade Name Freq PRN Reason Stop Dose Admin Nitroglycerin/Dextrose 50 mg in 250 mls @ 0 mls/hr 08/06/22 10:15 08/06/22 10:35 Nitroglycerin Drip IV 15 mcg/min .Q0M JONES 4.5 mls/hr Administration Protocol Per Protocol PFSH Acute PFSH: Medical History Abnormal cardiovascular stress test (08/2021) CAD (coronary artery disease) COPD (chronic obstructive pulmonary disease) Diabetes mellitus, type II Graves disease Status post radioactive iodine treatment now with hypothyroidism History of cerebral angiography 09/2021 at [facility] - mild plaque in bilateral carotids at carotid bulb (20-25%), at level of skull base, 70% concentric stenosis, high grade 90-95% stenosis at V4 segment of PICA HTN (hypertension) Hyperlipidemia Secondary hypothyroidism Status post treatment for Graves' disease Surgical History History of cardiac catheterization ~2005 LAD and RCA stents placed; 2016 patent RCA and LAD stents; 09/2021 LAD stent patent, 90% 1st diagonal, patent circ and OM, RCA with 95% in-stent restenosis treated with balloon angioplasty S/P appendectomy S/P cholecystectomy (2017) S/P PTCA (percutaneous transluminal coronary angioplasty) 2005, 2021 S/P splenectomy Status post incision and drainage (2017) gluteal/perineal abscess Family History Father CAD (coronary artery disease) Diabetes Myocardial infarction Grandfather CAD (coronary artery disease) Cancer Diabetes Family/Other CAD (coronary artery disease) at 50 Cancer Chronic kidney disease (CKD) Diabetes Lung disease Mother Cancer Lung disease Denies family history of Clotting disorder Dementia Suicide Anesthesia complication Bleeding disorder Stroke Social History Smoking and tobacco status: current every day smoker cigarettes Packs smoked per day: 1 Alcohol intake: current Alcohol intake frequency: few times a week Alcohol type: beer Substance/Drug Use: former Vitals/I&O/Wt Last Vital Signs Temp 98.2 F 08/06/22 09:45 Pulse 50 L 08/06/22 13:34 Resp 19 H 08/06/22 13:34 BP 148/65 08/06/22 13:34 Pulse Ox 97 08/06/22 13:34 O2 Del Method Room Air 08/06/22 09:45 Weight last 48 hrs Weight 190 lb Physical Exam Narrative: GENERAL: Patient is alert, awake and oriented x3. [] NECK: No jugular vein distension. [] HEENT: No cyanosis. No icterus. No pallor. [] HEART: Regular S1 and S2. No murmur, rub or gallop. [] LUNGS: Clear to auscultate bilaterally. [] CENTRAL NERVOUS SYSTEM: Grossly nonfocal. [] EXTREMITIES: Lower extremities with no edema bilaterally. Data 08/07/22 05:20 08/07/22 05:20 A&P Assessment and plan (1) Hyperlipidemia: Qualifiers: Hyperlipidemia type: other hyperlipidemia Qualified Code(s): E78.49 - Other hyperlipidemia (2) HTN (hypertension): (3) Unstable angina: (4) Diabetes mellitus, type II: (5) CAD (coronary artery disease): Qualifiers: Coronary Disease-Associated Artery/Lesion type: [place] artery [place] vs. transplanted heart: [place] heart Associated angina: with unstable angina Qualified Code(s): I25.110 - Atherosclerotic heart disease of [place] coronary artery with unstable angina pectoris Plan Patient has presented chest pain symptoms that are consistent with unstable angina. Given his significant prior cardiac history, we will proceed with coronary angiogram with possible percutaneous coronary intervention as pretest probability of severe CAD is high. Risks and benefits of the procedure have been discussed. He understands the risks and benefits and wants to proceed and n.p.o. past midnight. Continue aspirin, Plavix and anticoagulation. Thank you for involving us with care of this patient. We will continue to follow. Please call with questions Consult Attestations Medical Necessity Statement: Care expected to cross 2 midnights. Coding Level of Care Code Acute Code for [facility] Fwd Diagnoses Hyperlipidemia E78.49 Hyperlipidemia type: other hyperlipidemia HTN (hypertension) I10 Unstable angina I20.0 Diabetes mellitus, type II E11.9 CAD (coronary artery disease) I25.110 Coronary Disease-Associated Artery/Lesion type: [place] artery [place] vs. transplanted heart: [place] heart Associated angina: with unstable angina
[2022-08-06 16:12] LABS: Troponin 5 6HR 9.08 ng/L (0-15)
[2022-08-06 16:21] LABS: Troponin 5 6HR Delta -1.92 ng/L (0-12)
--- NOTE | 2022-08-06 16:54 | USR_ITS ---
PROCEDURE INFORMATION: Exam: US Duplex Right Lower Extremity Veins, Limited Exam date and time: 08/06/2022 4:56 PM Age: 71 years old Clinical indication: Pain; Leg, lower; Right; Additional info: Rle > lle, pain rle TECHNIQUE: Imaging protocol: Real-time duplex ultrasound of the right extremity with 2-D vallecillo scale, color Doppler flow and spectral waveform analysis including responses to compression and other maneuvers (when performed) with image documentation. Limited exam was focused on the right lower extremity veins. COMPARISON: CT pelvis wo/w con [id number] 11/05/2017 10:37 AM FINDINGS: Right deep veins: Unremarkable. The common femoral, femoral, proximal profunda femoral and popliteal veins are patent without thrombus. Normal Doppler waveforms. Normal compressibility and/or augmentation response. Right superficial veins: Unremarkable. Saphenofemoral junction is patent without thrombus. Soft tissues: Unremarkable. US/[place] [id number] IMPRESSION: No evidence of deep vein thrombosis.
[2022-08-06 16:58] LABS: Glucose Point of Care 265 mg/dL (70-110)
[2022-08-06] MEDS: enoxaparin 100 mg/mL Syringe 90 MG SUBCUT (17:56)
[2022-08-06] MEDS: docusate sodium 100 mg Capsule PO (17:57)
[2022-08-06] MEDS: guaiFENesin 600 mg Tablet 1200 MG PO (17:57)
[2022-08-06] MEDS: potassium chloride ER 20 mEq Tablet PO (17:57)
[2022-08-06] MEDS: insulin lispro 100 unit/1 mL SUBCUT (17:58)
[2022-08-06 21:34] LABS: Glucose Point of Care 94 mg/dL (70-110)
[2022-08-06] MEDS: atorvastatin 40 mg Tablet 80 MG PO (22:05)
[2022-08-06] MEDS: carvedilol 12.5 mg Tablet PO (22:05)
[2022-08-06] MEDS: primidone 50 mg Tablet PO (22:06)
[2022-08-06] MEDS: sennosides 8.6 mg Tablet 17.2 MG PO (22:06)
[2022-08-07] VITALS (16 sets, daily range): BP systolic 136–168; BP diastolic 60–86; PULSE 45–61; RESP 15–22; TEMP 36.4; O2SAT 93–97
[2022-08-07] MEDS: sodium chlor 0.45% +KCl 20 mEq 20 MEQ/1,000 ML BAG 50 MEQ IV (00:14)
--- NOTE | 2022-08-07 05:53 | XACV_ITS ---
Exam Room: [facility] Ht: 185 cm Wt: 86 kg BSA: 2.11 m2 Gender: Male : 1950 Any Known Allergies: Codeine Exam Priority: Routine Procedure(s): Procedure Description: Diagnostic procedure Procedure Description: PCI procedure Procedure Description: Drug Eluting Coronary Stent Procedure Description: PTCA Procedure Description: Miscellaneous Procedure Description: ACT Procedure Description: Coronary Angiography Diagnostic Cath Status: Urgent Diagnostic Findings * Left Main has no significant disease. * Circumflex has luminal irregularities. * Proximal Right Coronary Artery: ciritical 99% in-stent restenosis, YEHUDA: 2 flow. * Proximal Left Anterior Descending: mild 40% stenosis, YEHUDA: 3 flow. LAD has patent prior stent. * Coronary angiography shows right dominance. PCI Status: Urgent PCI Indication: Other Interventional Findings * PROCEDURE DETAIL: We engaged RCA with JR4 guide catheter. IV heparin was administered to maintain anticoagulation. 0.014 run-through guidewire was used to cross the critical proximal RCA in-stent restenosis and was put in distal vessel. We predilated stenosis with 3.5 x 12 mm NC balloon at high pressure. There was lesion extending beyond proximal edge of prior stent. We put a new 3.5 x 18 mm resolute [place] drug-eluting stent covering that stenosis. At this time final angiogram was performed that showed excellent stent expansion, YEHUDA-3 flow and no residual stenosis. Guidewire and guide catheter were removed. Patient left the Carver Hand in a stable condition.. * Proximal Right Coronary Artery to Proximal Right Coronary Artery: 99% stenosis treated with a MDT MARGUERITE EUPHORA RX [id number] BALLOON, and MDT Umm MERY 3.5X18 NICOLE. 0% residual stenosis, YEHUDA: 3 flow. Conclusions 1. Critical proximal RCA in-stent restenosis. 2. Status post successful revascularization with balloon angioplasty and 1 stent.. 3. Proximal Right Coronary Artery to Proximal Right Coronary Artery was treated with a Balloon, and Drug Eluting Stent. Recommendations * Dual antiplatelet therapy with aspirin and Plavix for at least 1 year. * High intensity statin therapy. * Outpatient cardiology follow up in 2 weeks. Interventional RX Recommendation: PCI w/o planned CABG Diagnostic RX Recommendation: PCI w/o planned CABG Anticoagulation: Heparin Pressures Phase:Rest AO : 133 / 82 ( 104 ) @ 9:06:00 AM 137 / 69 ( 94 ) @ 9:14:00 AM 140 / 72 ( 99 ) @ 9:24:00 AM Clinical Evaluation EBL: 5mL-10mL Procedural Details Procedure Consent Obtained. Admit Source: In Patient. Pre-Procedure Time Out. Identified patient by full name and date of as verbalized by the patient/guarantor. Does the consent match the physician's order: Yes. Accurate & Complete Informed Consent: Yes. Inpatient/Outpatient History & Physical on Chart: Yes. If H&P is completed, is and addenduem needed: No; If yes, is the addendum complete: N/A. Visualize and Verify Site with Patient/Guarantor: N/A. Relevant Radiology Images available: Yes. The risks, benefits, and alternatives of sedation and/or procedure were discussed by physician. The patient agrees to continue. Procedure started. [facility] Clinical Fraility Score: 4: Vulnerable. Carver Hand Indications: Worsening Angina. Chest Pain Symptom Assessment: Typical Angina Symptoms. Correct patient, site and procedure confirmed by cath team. Current diagnosis: Unstable angina. PERRLA. Strong, equal hand material carrier bilaterally. Lungs clear x 5 lobes. IV Site on Arrival: 18 gauge in the left anticubital. IV Site on Arrival: 18 gauge in the left forearm. Pre Procedural Pulses: bilateral dorsalis pedis was 2+. Pre Procedural Pulses: bilateral posterior tibial was 2+. Pre Procedural Pulses: bilateral radial was 1+. Oxygen started at 2liters/min via nasal canula. IV Fluids: 0.9% NaCl at 75ml/hr. 0 mL infused prior to shellfish processing laborer. bilateral groins was prepped with chloroprep then draped in the usual sterile fashion. Physician notified. Baseline sample Acquired. HR: 53 BPM. Physician arrived. Physician scrubbed in. Immediate Pre-Procedure Time Out. Correct Patient: Yes; Correct Procedure: Yes; Correct Site: Yes; Correct Patient Position: Yes; Correct Supplies: Yes; Dried Flammable Prep: Yes; Blood Products Available: No;. Lidocaine 1% infiltrated to the right groin. Arterial access obtained with micropuncture set. Lidocaine 1% infiltrated to the right groin. A 5 montenegrin JL4 catheter in over wire. Multiple views taken of left coronary artery. Catheter removed over the standard wire. A 5 montenegrin JR4 catheter in over wire. Multiple views taken of right coronary artery. 6 montenegrin JR 4 guide catheter was inserted over the wire. 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 Runthrough guidewire was advanced through the guide catheter to lesion in the prox RCA. Inflation number : 1 A MDT NC EUPHORA RX [id number] BALLOON was prepped and advanced across the Prox RCA , then inflated to 8 KENNETH for 0:08 seconds. Inflation number: 2 The MDT NC EUPHORA RX [id number] BALLOON was reinflated across the Prox RCA, to 18 KENNETH for 0:24 seconds. Balloon out. Results checked. Balloon inserted to lesion in the prox RCA. Stent inserted to lesion in the prox RCA. Inflation Number : 3 A MDT R MERY 3.5X18 NICOLE -Lot Number#[id number] was prepped and advanced across the Prox RCA. The stent was deployed at 12 KENNETH for 0:24 seconds. EXP 09-11-2024. Stent balloon out over wire. Balloon inserted to lesion in the prox RCA. Inflation number: 4 The MDT NC EUPHORA RX [id number] BALLOON was reinflated across the Prox RCA, to 20 KENNETH for 0:10 seconds. Inflation number: 5 The MDT NC EUPHORA RX [id number] BALLOON was reinflated across the Prox RCA, to 20 KENNETH for 0:11 seconds. Balloon out. Results checked. Wire out. Results checked. ACT drawn. Results out of range high . Therapeutic limits - pre-heparin administration 90-150 seconds and monitoring heparin during a vascular procedure >250 seconds. Guide catheter out. A Right femoral angiogram was performed to determine safe placement of closure device. A Suture was successful obtaining hemostatsis at the Right Femoral artery insertion site. Sheath(s) sutured into position with 2-0 silk and sterile 4x4's and Op-site applied over the site. No oozing or signs and symptoms of hematoma noted. Arterial sheath flushed and connected to tranducer and pressure bag with heparinized saline. Post Procedure: Pulses reassessed and unchanged. PERRLA. Strong, equal hand material carrier bilaterally. No VTE prophylaxis required. Post-op diagnosis: Severe in stent restenosis of prox RCA stent. Complications: None. Estimated blood loss: 5mL-10mL. Responsiveness - Normal response to verbal stimuli; alert and oriented, PERRLA. Airway - Unaffected, no intervention required; spontaneous ventilation. Circulation: W/N/L, pulses unchanged. Nausea/Vomiting: No. Medication's Wasted: Other = Fentanyl 50 mcg. Total IV fluids: 52 mL. Procedure completed. Patient transferred by bed to 1st floor. Vital chart was stopped. Access Site Site: Right Femoral artery Sheath Size: 6 Fr Hemostasis Method: Suture Hemostasis Success: Successful Procedure Medications Start: 7:49 AM Stop: 7:49 AM Medication: Diphendryamine Amount: 50 mg Route: I.V. Start: 7:51 AM Stop: 7:51 AM Medication: Fentanyl Amount: 25 mcg Route: I.V. Start: 7:56 AM Stop: 7:56 AM Medication: Versed Amount: 1 mg Route: I.V. Start: 8:03 AM Stop: 8:03 AM Medication: Fentanyl Amount: 25 mcg Route: I.V. Start: 8:12 AM Stop: 8:12 AM Medication: Heparin Amount: 8000 units Route: I.V. Start: 8:22 AM Stop: 8:22 AM Medication: Heparin Amount: 1000 units Route: I.V. Start: 8:24 AM Stop: 8:24 AM Medication: Versed Amount: 1 mg Route: I.V. Start: 8:33 AM Stop: 8:33 AM Medication: Plavix Amount: 300 mg Route: P.O. I, the attending physician, have reviewed and verified all procedure medications. Yes, all medications given per verbal order History/Risk Factors Hypertension: Yes Dyslipidemia: Yes Peripheral Arterial Disease (PAD): No Myocardial Infarction (NM): No Obesity: No Renal Disease: No Prior Interventions PCI: Yes CABG: No Valve Surgery: No Date of PCI: 09/24/2021 Report Signatures Finalized by Farhat Munoz MD on 08/08/2022 06:57 PM
[2022-08-07] MEDS: levothyroxine 175 mcg Tablet PO (05:55)
[2022-08-07] MEDS: clopidogrel 75 mg Tablet PO (05:55)
[2022-08-07] MEDS: losartan 50 mg Tablet 100 MG PO (05:55)
[2022-08-07] MEDS: aspirin 81 mg EC Tablet PO (05:56)
[2022-08-07] MEDS: isosorbide mononitrate ER 60 mg Tablet PO (05:56)
[2022-08-07 06:09] LABS: Basophils % 0.3 %; Eosinophils # 0.2 10^3/uL (0.0-0.8); Eosinophils % 1.3 %; Hematocrit 42.2 % (42.0-52.0); Hemoglobin 14.1 g/dL (11.7-16.6); Lymphocytes # 1.2 10^3/uL (0.8-4.8); Lymphocytes % 7.7 %; Mean Corpuscular HGB Conc 33.4 g/dL (30.0-36.0); Mean Corpuscular Hemoglobin 33.1 pg (28.0-34.0); Mean Corpuscular Volume 99.1 fl (80-94); Mean Platelet Volume 9.3 fL (7.4-10.4); Monocytes # 1.5 10^3/uL (0.2-0.9); Monocytes % 10.3 %; Neutrophils # 11.93 10^3/uL (1.8-7.7); Nucleated Red Blood Cells % 0 %; Platelet Count 330 10^3/cmm (130-400); Red Blood Count 4.26 10^6/uL (4.1-5.3); Red Cell Distribution Width 13.3 % (12.1-15.1); White Blood Count 14.9 10^3/uL (4.0-10.0)
[2022-08-07 06:21] LABS: Estmated Average Glucose 148; Hemoglobin A1C 6.8 % (4.0-6.0)
[2022-08-07 06:33] LABS: Anion Gap 11.1 (5-19); Blood Urea Nitrogen 18 mg/dL (8-23); Calcium 8.8 mg/dL (8.5-10.5); Carbon Dioxide 26 mmol/L (22-29); Chloride 101 mmol/L (98-107); Chol HDL Ratio 2.08 mg/dL (1.0-5.00); Cholesterol 100 mg/dL (0-200); Glucose 148 mg/dL (65-115); HDL Cholesterol 48 mg/dL (60-100); LDL Cholesterol Calculated 43 mg/dL (50-129); Magnesium 1.7 mg/dL (1.7-2.3); Osmolality Calculated 283 mOsm/kg (285-295); Phosphorus 4.3 mg/dL (2.5-4.5); Potassium 4.1 mmol/L (3.5-5.1); Sodium 134 mmol/L (136-145); Triglycerides 43 mg/dL (0-150)
[2022-08-07 06:35] LABS: Glucose Point of Care 146 mg/dL (70-110)
--- NOTE | 2022-08-07 07:56 | W.PM.OPSUD ---
Surgery/Procedure H&P Update DATE OF PROCEDURE: August 07, 2022 DATE H&P PERFORMED: 08/06/22 H&P UPDATE INFORMATION: I have reviewed H&P completed within last 30 days, I have examined patient prior to procedure and No changes to prior documentation PREOP DIAGNOSIS: Unstable angina PRIMARY INDICATION FOR PROCEDURE: Unstable angina PLANNED PROCEDURE: Left heart cath with possible percutaneous coronary intervention PATIENT REASSESSED PRIOR TO SEDATION, WITH NO CHANGE NOTED: Yes PHYSICAL EXAM: alert, oriented x 3, clear to auscultation bilaterally and regular rate & rhythm AIRWAY EVAL/ANESTHESIA PLAN: normal airway, ASA III, Local Anesthesia, Risks, benefits & alternatives of sedation and/or procedure discussed and Patient agrees to continue as planned
--- NOTE | 2022-08-07 07:58 | PC.NURSE ---
to cath lab radiological technologist via bed
--- NOTE | 2022-08-07 08:50 | P.PN_ITS ---
Subjective Subjective: Patient had coronary angiogram and he underwent successful revascularization of RCA with 1 stent. He is chest pain-free. Vitals/I&O/Wt Last Vital Signs Temp 98.2 F 08/06/22 09:45 Pulse 49 L 08/07/22 06:00 Resp 19 H 08/07/22 04:02 BP 150/84 08/07/22 05:55 Pulse Ox 96 08/07/22 04:02 O2 Del Method Nasal Cannula 08/06/22 20:33 O2 Flow Rate 3 08/06/22 20:33 08/06/22 08/07/22 08/07/22 22:59 06:59 14:59 Intake Total 240 / 240 Output Total 575 / 575 Balance -335 / -335 Weight last 48 hrs Weight 193 lb 4.8 oz Weight 190 lb Physical Exam Narrative: GENERAL: Patient is alert, awake and oriented x3. [] NECK: No jugular vein distension. [] HEENT: No cyanosis. No icterus. No pallor. [] HEART: Regular S1 and S2. No murmur, rub or gallop. [] LUNGS: Clear to auscultate bilaterally. [] CENTRAL NERVOUS SYSTEM: Grossly nonfocal. [] EXTREMITIES: Lower extremities with no edema bilaterally. Data 08/07/22 05:20 08/07/22 05:20 A&P Assessment and plan (1) Hyperlipidemia: Qualifiers: Hyperlipidemia type: other hyperlipidemia Qualified Code(s): E78.49 - Other hyperlipidemia (2) HTN (hypertension): (3) Unstable angina: (4) Diabetes mellitus, type II: (5) CAD (coronary artery disease): Qualifiers: Coronary Disease-Associated Artery/Lesion type: [place] artery [place] vs. transplanted heart: [place] heart Associated angina: with unstable angina Qualified Code(s): I25.110 - Atherosclerotic heart disease of [place] coronary artery with unstable angina pectoris Plan Patient is status post PCI of proximal RCA with 1 stent. Continue aspirin and Plavix. High intensity statin therapy. Thank you for involving us with care of this patient. We will continue to follow. Please call with questions Attestations Medical Necessity Statement*: Care expected to cross 2 midnights. Coding Level of Care Code Acute Code for [facility] Fwd Diagnoses Hyperlipidemia E78.49 Hyperlipidemia type: other hyperlipidemia HTN (hypertension) I10 Unstable angina I20.0 Diabetes mellitus, type II E11.9 CAD (coronary artery disease) I25.110 Coronary Disease-Associated Artery/Lesion type: [place] artery [place] vs. transplanted heart: [place] heart Associated angina: with unstable angina
[2022-08-07 11:43] LABS: Glucose Point of Care 183 mg/dL (70-110)
[2022-08-07 12:07] LABS: Partial Thromboplastin Time 119.7 SECONDS (23.9-36.7)
[2022-08-07] MEDS: citalopram 20 mg Tablet 40 MG PO (12:25)
[2022-08-07] MEDS: guaiFENesin 600 mg Tablet 1200 MG PO ×2 (12:26→18:12)
[2022-08-07] MEDS: potassium chloride ER 20 mEq Tablet PO (12:26)
[2022-08-07] MEDS: docusate sodium 100 mg Capsule PO ×2 (12:26→18:12)
[2022-08-07] MEDS: pantoprazole DR 40 mg Tablet PO (12:26)
[2022-08-07] MEDS: insulin lispro 100 unit/1 mL SUBCUT (12:28)
[2022-08-07 15:05] LABS: Partial Thromboplastin Time 31.3 SECONDS (23.9-36.7)
--- NOTE | 2022-08-07 15:16 | PM.PN ---
Subjective Subjective: Patient had coronary angiogram and he underwent successful revascularization of RCA with 1 stent yesterday. He is currently chest pain-free. Patient is noted to be extremely somnolent. He falls asleep in midsentence. His daughter says this is not usual for him. He has been more lethargic compared to yesterday. Review of MAR shows he has not received any opiates or patient wakes up easily to calling name, however falls asleep midsentence. Benzodiazepines today. Vitals are stable. Blood pressure 160/69, heart rate 53, drops to 40 bpm intermittently especially during sleeping. He is suspected to have sleep apnea however has never had a formal sleep study to evaluate. Medications: Reviewed: Yes Vitals/I&O/Wt Last Vital Signs Temp 98.2 F 08/06/22 09:45 Pulse 53 L 08/07/22 12:30 Resp 17 08/07/22 12:30 BP 162/69 08/07/22 12:30 Pulse Ox 97 08/07/22 12:30 O2 Del Method Nasal Cannula 08/07/22 12:30 O2 Flow Rate 2 08/07/22 08:00 08/07/22 08/07/22 08/07/22 06:59 14:59 22:59 Intake Total 476 / 476 Output Total 425 / 425 Balance 51 / 51 Weight last 48 hrs Weight 87.679 kg Weight 86.183 kg Physical Exam Narrative: General: No acute distress, AO x3 when awake, however falls asleep midsentence HEENT: PERRLA, pupils bilaterally equal and reactive, pallors not present Chest: Normal vesicular breath sounds, no added sounds, equal good air entry bilaterally CVS: S1-S2 regular, no murmurs, no tachycardia, no gallops, no rubs Abdomen: Soft, nontender, no organomegaly, bowel sounds present Neuro: No focal deficits, no facial deformity, AO x3, power 5/5 in all limbs Data 08/07/22 05:20 08/07/22 05:20 A&P Assessment and plan (1) Unstable angina: Patient underwent left heart cath and revascularization as noted above. Currently he is chest pain-free. continue ASA, plavix, reduce carvedilol to 12.5 mg Bid from 25/12.5 daily given bradycardia down to 40s (2) Right leg pain: Venous duplex without any signs of DVT. Pain is better today. (3) Mucus in stool: With alternating diarrhea and constipation of several months duration, 10-14 stools a day described. No diarrhea since coming to the hospital. Patient is passing flatus currently. He has not yet had a bowel movement since he has been here. We will recommend outpatient follow-up with primary for colonoscopy and or IBS assessment. (4) Diabetes mellitus, type II: Continue insulin sliding scale (5) COPD (chronic obstructive pulmonary disease): Change albuterol to DuoNeb's. patient has bilateral wheezing to auscultation today. He is also extremely somnolent, falls asleep during midsentence. When awoken he is awake alert oriented x3. Daughter states this tends to happen at home 2, however not as severe. Patient is suspected to have obstructive sleep apnea and has been advised a sleep study but this is yet to happen. We will perform an overnight oximetry study. check ABG for hypercapnia (6) Secondary hypothyroidism: check TSH given lethargy Attestations Medical Necessity Statement*: change to inpatient admission given increased lethargy today, overnight oximetry study, check ABG, change nebulization to DuoNeb, reduce Coreg dose. Coding Level of Care Code Acute Code for [facility] Fwd Diagnoses Unstable angina I20.0 Right leg pain M79.604 Mucus in stool R19.5 Diabetes mellitus, type II E11.9 COPD (chronic obstructive pulmonary disease) J44.9 Secondary hypothyroidism E03.8
[2022-08-07 15:48] LABS: ABG PCO2 46.1 mmHg (35-45); ABG PH Result 7.43 (7.35-7.45); Arterial Blood Gas Hematocrit 42.4 % (42-52); Base Excess ABG 5.2 mmol/L (-2.0-2.0); Blood Gas Allen Test Pos; Blood Gas Operator Identificat MONRO; Blood Gas Sample Site Radial, left; Blood Gas Sample Type Arterial; HCO3 ABG 30.4 mmol/L (22-26); Oxygen Device NC; PO2 ABG 64.2 mmHg (80.0-100.0)
[2022-08-07 16:28] LABS: Glucose Point of Care 133 mg/dL (70-110)
[2022-08-07] MEDS: carvedilol 12.5 mg Tablet PO (18:12)
[2022-08-07] MEDS: amlodipine 10 mg Tablet PO (18:12)
[2022-08-07] MEDS: ALPRAZolam 0.5 mg Tablet 0.25 MG PO (19:46)
[2022-08-07] MEDS: ipratropium-albuterol 3 mL Neb INHALATION (19:55)
[2022-08-07] MEDS: primidone 50 mg Tablet PO (20:56)
[2022-08-07] MEDS: atorvastatin 40 mg Tablet 80 MG PO (20:57)
[2022-08-07] MEDS: temazepam 15 mg Capsule PO (21:06)
[2022-08-07 21:14] LABS: Glucose Point of Care 163 mg/dL (70-110)
[2022-08-08] VITALS (23 sets, daily range): BP systolic 136–176; BP diastolic 67–89; PULSE 48–58; RESP 12–20; TEMP 36.8; O2SAT 91–96
[2022-08-08] MEDS: isosorbide mononitrate ER 60 mg Tablet PO (04:44)
[2022-08-08] MEDS: levothyroxine 175 mcg Tablet PO (04:45)
[2022-08-08] MEDS: losartan 50 mg Tablet 100 MG PO (04:45)
[2022-08-08] MEDS: clopidogrel 75 mg Tablet PO (04:48)
[2022-08-08] MEDS: FUROsemide 40 mg Tablet PO (04:49)
[2022-08-08] MEDS: aspirin 81 mg EC Tablet PO (04:49)
[2022-08-08 05:28] LABS: Alanine Aminotransferase 18 U/L (0-41); Albumin Level 3.6 g/dL (3.5-5.2); Alkaline Phosphatase 56 U/L (40-130); Aspartate Amino Transferase 11 U/L (0-40); Blood Urea Nitrogen 10 mg/dL (8-23); Calcium 8.8 mg/dL (8.5-10.5); Carbon Dioxide 29 mmol/L (22-29); Chloride 101 mmol/L (98-107); Globulin 3.2 g/dL (1.3-4.6); Glucose 103 mg/dL (65-115); Osmolality Calculated 279 mOsm/kg (285-295); Sodium 135 mmol/L (136-145); Total Bilirubin 0.6 mg/dL (0.15-1.2); Total Protein 6.8 g/dL (6.6-8.7)
[2022-08-08 06:24] LABS: Glucose Point of Care 142 mg/dL (70-110)
--- NOTE | 2022-08-08 07:34 | P.PN_ITS ---
Subjective Subjective: Patient is doing well. He denies complaints of chest pain. He has diuresed well. Vitals/I&O/Wt Last Vital Signs Temp 98.2 F 08/08/22 07:05 Pulse 54 L 08/08/22 07:05 Resp 16 08/08/22 07:05 BP 156/74 08/08/22 07:05 Pulse Ox 91 08/08/22 07:05 O2 Del Method Room Air 08/08/22 07:05 O2 Flow Rate 2 08/08/22 04:00 08/07/22 08/08/22 08/08/22 22:59 06:59 14:59 Intake Total 360 / 836 120 / 956 Output Total 1140 / 1565 1770 / 3335 865 / 865 Balance -780 / -729 -1650 / -2379 -865 / -865 Weight last 48 hrs Weight 0 oz Weight 193 lb 4.8 oz Weight 190 lb Physical Exam Narrative: GENERAL: Patient is alert, awake and oriented x3. [] NECK: No jugular vein distension. [] HEENT: No cyanosis. No icterus. No pallor. [] HEART: Regular S1 and S2. No murmur, rub or gallop. [] LUNGS: Clear to auscultate bilaterally. [] CENTRAL NERVOUS SYSTEM: Grossly nonfocal. [] EXTREMITIES: Lower extremities with no edema bilaterally. Data 08/08/22 09:58 08/08/22 04:59 A&P Assessment and plan (1) Hyperlipidemia: Qualifiers: Hyperlipidemia type: other hyperlipidemia Qualified Code(s): E78.49 - Other hyperlipidemia (2) HTN (hypertension): (3) Unstable angina: (4) Diabetes mellitus, type II: (5) CAD (coronary artery disease): Qualifiers: Coronary Disease-Associated Artery/Lesion type: [place] artery [place] vs. transplanted heart: [place] heart Associated angina: with unstable angina Qualified Code(s): I25.110 - Atherosclerotic heart disease of [place] coronary artery with unstable angina pectoris Plan Patient had PCI of proximal RCA yesterday with 1 stent. He is doing good. He denies complaints of chest pain. Continue dual antiplatelet therapy with aspirin and Plavix for at least 1 year. High intensity statin therapy. Thank you for involving us with care of this patient. Patient is stable to be discharged from cardiology standpoint. Please call with questions Attestations Medical Necessity Statement*: Care expected to cross 2 midnights. Coding Level of Care Code Acute Code for [facility] Fwd Diagnoses Hyperlipidemia E78.49 Hyperlipidemia type: other hyperlipidemia HTN (hypertension) I10 Unstable angina I20.0 Diabetes mellitus, type II E11.9 CAD (coronary artery disease) I25.110 Coronary Disease-Associated Artery/Lesion type: [place] artery [place] vs. transplanted heart: [place] heart Associated angina: with unstable angina
[2022-08-08] MEDS: ipratropium-albuterol 3 mL Neb INHALATION ×2 (08:02→14:03)
[2022-08-08] MEDS: guaiFENesin 600 mg Tablet 1200 MG PO (08:38)
[2022-08-08] MEDS: docusate sodium 100 mg Capsule PO (08:38)
[2022-08-08] MEDS: carvedilol 12.5 mg Tablet PO (08:38)
[2022-08-08] MEDS: pantoprazole DR 40 mg Tablet PO (08:38)
[2022-08-08] MEDS: citalopram 20 mg Tablet 40 MG PO (08:38)
[2022-08-08] MEDS: potassium chloride ER 20 mEq Tablet PO (08:38)
[2022-08-08] MEDS: insulin lispro 100 unit/1 mL SUBCUT ×2 (08:39→12:35)
[2022-08-08] MEDS: hyDRALAzine 50 mg Tablet PO ×2 (09:02→15:09)
[2022-08-08] MEDS: fluticasone nasal spray 16gm Btl 2 SPRAY INTRANASAL (09:02)
--- NOTE | 2022-08-08 09:53 | PC.CHAP ---
Pastoral Care Encounter/Spiritual Assessment Type of Contact [] Declined wafer fab technician visit [] Patient/Family/Request visit [] Outpatient visit [] Follow-up visit [] Physician referral [] Code/Alert [x] Routine visit [] Staff referral [] Actively dying [] Patient sleeping [] Family support [] [] Out of room [] Palliative care [] [x] Receiving care in room [] Pre-surgical visit [] Trauma [] Long length of stay [] ICU visit [] Other: Relational/Emotional Strength [x] Patient feels connected with others/family/visitors/staff [] Distress [] Loneliness/isolation [] Abandonment Spirituality of Patient [x] Person of Diane [] Attends Faith of their Diane [x] Believes in Prayer [] Reads Bible or Yarsani materials [] There are Spiritual issues to be addressed Bumper And Painter Interventions [x] Prayer [x] Active listening [x] Non-anxious presence [x] Spiritual/emotional support [] Crisis/trauma care [x] Spiritual counseling [] Bereavement support [] Provided bereavement packet [] Provided Bible/devotional materials [] Provided toy/stuffed animal, coloring book to patient or family member [] Provided Communion [] Anointing/[place] [] Salvation [x] Completed spiritual assessment [] Other: Impact on Illness or Injury [] Angry [] Fearful [] Anxious [] Often cries [] Exhaustion [] Unable to work [] Unable to attend advent [] Unable to walk/stand [] Unable to read [] Unable to drive [] Unable to eat/drink [] Unable to sleep [] Unable to be with family [] Patient intubated [] Other: Summary replaced stent has good attitgude well go home Time spent with patient
[2022-08-08 10:04] LABS: Basophils # 0.1 10^3/uL (0.0-0.1); Basophils % 0.4 %; Eosinophils # 0.3 10^3/uL (0.0-0.8); Eosinophils % 1.9 %; Hematocrit 43.4 % (42.0-52.0); Hemoglobin 14.6 g/dL (11.7-16.6); Lymphocytes # 0.8 10^3/uL (0.8-4.8); Lymphocytes % 5.9 %; Mean Corpuscular HGB Conc 33.6 g/dL (30.0-36.0); Mean Corpuscular Hemoglobin 33.3 pg (28.0-34.0); Mean Corpuscular Volume 99.1 fl (80-94); Mean Platelet Volume 9.3 fL (7.4-10.4); Monocytes # 1.3 10^3/uL (0.2-0.9); Monocytes % 9.4 %; Neutrophils # 10.91 10^3/uL (1.8-7.7); Neutrophils % 82.1 %; Nucleated Red Blood Cells % 0 %; Platelet Count 314 10^3/cmm (130-400); Red Blood Count 4.38 10^6/uL (4.1-5.3); Red Cell Distribution Width 13.3 % (12.1-15.1); White Blood Count 13.3 10^3/uL (4.0-10.0)
[2022-08-08 11:19] LABS: Glucose Point of Care 202 mg/dL (70-110)
--- NOTE | 2022-08-08 14:04 | PM.DCS ---
Discharge Providers Date of Admission: 08/07/22 15:16 Date of Discharge: August 08, 2022 Attending Provider at Admission: Vanna Rai MD Attending Provider at Discharge: Saima Crystal MD Primary Care Provider: Marivel Taylor NP Diagnoses at Discharge Discharge Diagnosis (1) Unstable angina: Status: Acute (2) Right leg pain: Status: Acute (3) Mucus in stool: Status: Acute (4) Diabetes mellitus, type II: Status: Chronic (5) COPD (chronic obstructive pulmonary disease): Status: Chronic (6) Secondary hypothyroidism: Status: Chronic Permanent problem details: Status post treatment for Graves' disease Reason for Visit Reason for Visit: [facility] Hospital Course Hospital Course Yandel Jennings is a 71 year old male with past medical history of hypertension and CAD has multiple stents presented to the hospital after he called EMS for severe substernal chest pain. He had nausea and sweating associated with it.? In the emergency room his chest pain resolved.? Troponins did not increase significantly.? EKG does not show significant ST-T wave changes. Symptoms were suggestive of unstable angina. Given his significant prior cardiac history, he underwent a coronary angiogram and successful revascularization of RCA with 1 stent. Tolerated procedure well. he has been chest pain free since the procedure. His other complaints included persistent diarrhea alternating with constipation and tenesmus over past several months,no parveen. Recommended to get age appropriate colonoscopy for further evaluation and w/up with PCP. He did not have any significant diarrhea during admission. He was noted to be falling asleep mid sentence on 08/07. A diagnosis of COPD and Sleep apnea is suspected. This was much improved today at discharge. ABG was perfromed which showed eveidence of chronic hypoxia and hypercapnea with pco2 46. A formal sleep study has been recommended as outpatient. Inhalers have been changed to Advair instead of albuterol. Chronic smoker, referral to pulmonary for COPD and lung ca screening. Noted chronic leukocytosis ranging between 11 to 16 at baseline- f/up with PCP. Physical Exam Narrative: General: No acute distress, AO x3 HEENT: PERRLA, pupils bilaterally equal and reactive, pallors not present Chest: Normal vesicular breath sounds, no added sounds, equal good air entry bilaterally CVS: S1-S2 regular, no murmurs, no tachycardia, no gallops, no rubs Abdomen: Soft, nontender, no organomegaly, bowel sounds present Neuro: No focal deficits, no facial deformity, AO x3, power 5/5 in all limbs Discharge Data Studies Completed and Pending Completed Studies During Hospitalization Category Date Time Status XR chest 1V portable [id number] Stat Exams 08/06/22 09:48 Completed US venous duplex lower extremity RT [CV venous duplex Ultrasound 08/06/22 16:54 [place] [id number]] Routine Pending at discharge Category Date Time Status AT RISK SPECIALIST request for service Routine Exams 08/07/22 05:53 Taken Clostridioides Difficile PCR Routine Lab 08/06/22 09:30 Results Enteric Bacterial Panel by PCR Routine Lab 08/06/22 09:30 Results Enteric Parasite Panel by PCR Routine Lab 08/06/22 09:30 Results Immunochemical Fecal OCB Routine Lab 08/06/22 09:30 Results Lactoferrin Routine Lab 08/06/22 09:30 Results Radiology Impressions Chest X-Ray 08/06/22 09:48 IMPRESSION: 1. New prominent reticulations and interstitial thickening at the RIGHT lung base. May be an area of mild edema or developing pneumonitis. No pneumonia. 2. Mild emphysema. Venous Duplex 08/06/22 16:54 IMPRESSION: No evidence of deep vein thrombosis. Laboratory Results WBC 13.3 10^3/uL (4.0-10.0) H 08/08/22 09:58 Corrected WBC Cancelled 08/08/22 04:59 RBC 4.38 10^6/uL (4.1-5.3) 08/08/22 09:58 Hgb 14.6 g/dL (11.7-16.6) 08/08/22 09:58 Hct 43.4 % (42.0-52.0) 08/08/22 09:58 MCV 99.1 fl (80-94) H 08/08/22 09:58 MCH 33.3 pg (28.0-34.0) 08/08/22 09:58 MCHC 33.6 g/dL (30.0-36.0) 08/08/22 09:58 RDW 13.3 % (12.1-15.1) 08/08/22 09:58 Plt Count 314 10^3/cmm (130-400) 08/08/22 09:58 MPV 9.3 fL (7.4-10.4) 08/08/22 09:58 Gran % Cancelled 08/08/22 04:59 Neut % (Auto) 82.1 % 08/08/22 09:58 Lymph % (Auto) 5.9 % 08/08/22 09:58 Barber % (Auto) 9.4 % 08/08/22 09:58 Eos % (Auto) 1.9 % 08/08/22 09:58 Baso % (Auto) 0.4 % 08/08/22 09:58 Neut # (Auto) 10.91 10^3/uL (1.8-7.7) H 08/08/22 09:58 Lymph # (Auto) 0.8 10^3/uL (0.8-4.8) 08/08/22 09:58 [place] # (Auto) 1.3 10^3/uL (0.2-0.9) H 08/08/22 09:58 Eos # (Auto) 0.3 10^3/uL (0.0-0.8) 08/08/22 09:58 Baso # (Auto) 0.1 10^3/uL (0.0-0.1) 08/08/22 09:58 Absolute Gran (auto) Cancelled 08/08/22 04:59 Nucleated RBC % (auto) 0 % 08/08/22 09:58 Nucleated RBCs # 0.0 /100WBC 08/08/22 09:58 APTT 31.3 SECONDS (23.9-36.7) D 08/07/22 14:32 Specimen Type Arterial 08/07/22 15:32 Sample Site Radial, left 08/07/22 15:32 ABG pH 7.43 (7.35-7.45) 08/07/22 15:32 ABG pCO2 46.1 mmHg (35-45) H 08/07/22 15:32 ABG pO2 64.2 mmHg (80.0-100.0) L 08/07/22 15:32 ABG HCO3 30.4 mmol/L (22-26) H 08/07/22 15:32 ABG Base Excess 5.2 mmol/L (-2.0-2.0) H 08/07/22 15:32 Aakash Test Pos 08/07/22 15:32 Hematocrit 42.4 % (42-52) 08/07/22 15:32 O2 Delivery Device Nc 08/07/22 15:32 O2 Liters/Min 2.0 % 08/07/22 15:32 FiO2 28.0 % 08/07/22 15:32 Choir Teacher ID Anette 08/07/22 15:32 Sodium 135 mmol/L (136-145) L 08/08/22 04:59 Potassium 4.0 mmol/L (3.5-5.1) 08/08/22 04:59 Chloride 101 mmol/L (98-107) 08/08/22 04:59 Carbon Dioxide 29 mmol/L (22-29) 08/08/22 04:59 Anion Gap 9.0 (5-19) 08/08/22 04:59 BUN 10 mg/dL (8-23) 08/08/22 04:59 Creatinine 0.4 mg/dL (0.7-1.2) L 08/08/22 04:59 GFR Calculation Not Reportable 08/08/22 04:59 Glucose 103 mg/dL (65-115) 08/08/22 04:59 POC Glucose 202 mg/dL (70-110) H 08/08/22 11:11 Estimat Average Glucose 148 08/07/22 05:20 Hemoglobin A1c 6.8 % (4.0-6.0) H 08/07/22 05:20 Calculated Osmolality 279 mOsm/kg (285-295) L 08/08/22 04:59 Calcium 8.8 mg/dL (8.5-10.5) 08/08/22 04:59 Phosphorus 4.3 mg/dL (2.5-4.5) 08/07/22 05:20 Magnesium 1.7 mg/dL (1.7-2.3) 08/07/22 05:20 Total Bilirubin 0.6 mg/dL (0.15-1.2) 08/08/22 04:59 AST 11 U/L (0-40) 08/08/22 04:59 ALT 18 U/L (0-41) 08/08/22 04:59 Alkaline Phosphatase 56 U/L (40-130) 08/08/22 04:59 Troponin T Baseline 11 ng/L (0-15) 08/06/22 09:16 Troponin T 120 Minute 10.87 ng/L (0-15) 08/06/22 11:30 Delta Troponin T -0.13 ABS# (0-10) L 08/06/22 11:30 Troponin T Hi Sens 6Hr 9.08 ng/L (0-15) 08/06/22 15:31 Troponin T Hi Sens 6Hr Delta -1.92 ng/L (0-12) L 08/06/22 15:31 Total Protein 6.8 g/dL (6.6-8.7) 08/08/22 04:59 Albumin 3.6 g/dL (3.5-5.2) 08/08/22 04:59 Globulin 3.2 g/dL (1.3-4.6) 08/08/22 04:59 Triglycerides 43 mg/dL (0-150) 08/07/22 05:20 Cholesterol 100 mg/dL (0-200) 08/07/22 05:20 LDL Cholesterol, Calc 43 mg/dL (50-129) L 08/07/22 05:20 HDL Cholesterol 48 mg/dL (60-100) L 08/07/22 05:20 LDL/HDL Ratio 0.90 RATIO (0.00-3.22) 08/07/22 05:20 Cholesterol/HDL Ratio 2.08 mg/dL (1.0-5.00) 08/07/22 05:20 TSH 1.00 uIU/mL (0.27-4.20) 08/07/22 05:20 Vitals Last Vital Signs Temp 98.2 F 08/08/22 07:05 Pulse 52 L 08/08/22 11:18 Resp 14 08/08/22 11:18 BP 165/71 08/08/22 11:18 Pulse Ox 95 08/08/22 11:18 O2 Del Method Room Air 08/08/22 11:18 O2 Flow Rate 2 08/08/22 04:00 Discharge Plan Discharge Patient Disposition: Home Condition: Stable Prescriptions: New pantoprazole 40 mg Tablet,Delayed Release (Dr/Ec) 40 mg PO DAILY 30 Days Qty: 30 0RF hydralazine 50 mg Tablet 50 mg PO TID 30 Days Qty: 90 0RF fluticasone propion-salmeterol [Advair Diskus] 500-50 mcg/dose blister with device 1 inh inhalation BID Qty: 60 0RF Continued multivitamin Tablet 1 tab PO QAM meloxicam 15 mg tablet 15 mg PO QAM metformin 500 mg tablet 500 mg PO BID Hold Instructions: Resume on 10/04/21. aspirin [Adult Low Dose Aspirin] 81 mg tablet,delayed release (DR/EC) 81 mg PO QAM nitroglycerin [Nitrostat] 0.4 mg tablet, sublingual 0.4 mg SUBLINGUAL Q5M PRN (Reason: chest pain) Qty: 25 3RF Rx Instructions: do not exceed 3 doses per episode primidone 50 mg tablet 50 mg PO BEDTIME citalopram 40 mg tablet 40 mg PO QAM glipizide 10 mg tablet 10 mg PO BID fluticasone propionate 50 mcg/actuation spray,suspension 2 spray intranasal DAILY levothyroxine 175 mcg tablet 175 mcg PO QAM Mucinex DM 60-1,200 mg Tablet Extended Release 12 Hr 1 tab PO Q12H albuterol sulfate 90 mcg/actuation HFA aerosol inhaler 2 puff INHALATION QID PRN (Reason: Shortness Of Breath) furosemide 40 mg tablet 40 mg PO QAM clopidogrel 75 mg tablet 75 mg PO QAM isosorbide mononitrate 60 mg tablet extended release 24 hr 60 mg PO QAM amlodipine 10 mg tablet 10 mg PO BEDTIME olmesartan 40 mg tablet 40 mg PO QAM rosuvastatin 20 mg tablet 20 mg PO BEDTIME potassium chloride 20 mEq tablet extended release 20 meq PO QAM Changed carvedilol 12.5 mg tablet 12.5 mg PO BID 30 Days Qty: 60 0RF Discharge Orders: Discharge Order (Routine); Ordered 08/08/22 Ordered By: Saima Crystal Other Ambulatory Orders: Sleep Study/Titration (Routine) Timeframe: 1 Month Facility: [facility] - Location: [facility] Ordered By: Saima Crystal Referrals: Marivel Taylor NP [Primary Care Provider] - Ansley Wei FNP [Nurse Practitioner] - 08/14/22 9:45 am (Please follow-up Ansley Wei on August 14 at 9:45A.M. If you have any questions or need to reschedule. Please call ) Discharge Diet: Cardiac Discharge Activity: Resume usual activity and Increase activity as tolerated Patient Instructions: Opioid Safety Activity Restrictions/Additional Instructions: Maintain Blood pressure chart by checking twice a day at same time every day and bring it to your appointment with Ansley Cortes Attestmisael Time Spent in Discharge Care*: greater than 30 min Quality Metrics Clinical Quality Measures [ No reported AMI, CVA or VTE this stay] Coding Level of Care Code Acute Code for Chg Fwd Diagnoses Unstable angina I20.0 Right leg pain M79.604 Mucus in stool R19.5 Diabetes mellitus, type II E11.9 COPD (chronic obstructive pulmonary disease) J44.9 Secondary hypothyroidism E03.8
== END 2022-08-08 16:37 | disposition home or self-care (01) | DRG 247 ==
LOC: ER 10:10 → CSU 13:36
PROVIDERS: Internal Medicine; Admitting Provider Hospitalist; Emergency Provider Family Medicine; PCP Nurse Practitioner Family; Visit Provider Student in an Organized Health Care Education/Training Program
PROC: 027034Z Dilation of Coronary Artery, One Artery with Drug-eluting Intraluminal Device, Percutaneous Approach (ICD-10-PCS; principal; 2022-08-07 07:00)
PROC: 027034Z Dilation of Coronary Artery, One Artery with Drug-eluting Intraluminal Device, Percutaneous Approach (ICD-10-PCS; 2022-08-07 07:00)
DX: T82.855A Stenosis of coronary artery stent, initial encounter (principal); I25.110 Atherosclerotic heart disease of native coronary artery with unstable angina pectoris; J96.12 Chronic respiratory failure with hypercapnia; J96.11 Chronic respiratory failure with hypoxia; Y71.8 Miscellaneous cardiovascular devices associated with adverse incidents, not elsewhere classified; E11.9 Type 2 diabetes mellitus without complications; J43.1 Panlobular emphysema; I10 Essential (primary) hypertension; G47.30 Sleep apnea, unspecified; F17.210 Nicotine dependence, cigarettes, uncomplicated; Z79.84 Long term (current) use of oral hypoglycemic drugs; Z79.82 Long term (current) use of aspirin; Z79.51 Long term (current) use of inhaled steroids; Z79.02 Long term (current) use of antithrombotics/antiplatelets; R19.5 Other fecal abnormalities; E89.0 Postprocedural hypothyroidism; Y84.2 Radiological procedure and radiotherapy as the cause of abnormal reaction of the patient, or of later complication, without mention of misadventure at the time of the procedure; N40.1 Benign prostatic hyperplasia with lower urinary tract symptoms; R39.11 Hesitancy of micturition; R39.16 Straining to void; R39.15 Urgency of urination; R35.0 Frequency of micturition; M79.604 Pain in right leg; Z90.81 Acquired absence of spleen; E78.49 Other hyperlipidemia
CPT/HCPCS: 36415; 36416; 36600; 71045; 80048; 80053; 80061; 82274; 82803; 82962; 83036; 83630; 83735; 84100; 84443; 84484; 85025; 85347; 85730; 87493; 87506; 93005; 93454; 93971; 94640; 96365; 96372; 99152; 99153; 99285; C1725; C1769; C1874; C1887; C1894; C9600; G0378; J1200; J1644; J1650; J1815; J2250; J3010; J3480; J3490; J7030; Q9967

== ENCOUNTER 2022-08-09 11:08 | Emergency (ER) | payer MEDICARE, OTHER, SELFPAY ==
[2022-08-09 11:28] VITALS: BP 118/55; PULSE 57; RESP 16; TEMP 36.4; O2SAT 95
--- NOTE | 2022-08-09 11:40 | W.ED.WEAKNES ---
HPI - Weakness General: Chief complaint: Weakness Stated complaint: Low BP, Weakness, Dizzy Time Seen by Provider: 08/09/22 11:34 History of Present Illness: 72-year-old male with complex medical history including pulmonary disease, pretension, COPD, diabetes and hyperlipidemia. Patient presents emergency room today with dizziness and weakness after taking his blood pressure medication. According to the patient and his family patient was discharged 3 days ago after placement of 2 stents in his heart. Today patient took his blood pressure and was mildly elevated and took all his blood pressure medication as directed. Few hours later. Noticed dizziness and low blood pressure. Upon present emergency room patient denies any chest pain, shortness of breath, weakness or dizziness at this time. Pressure has improved significantly. Associated symptoms: Denies chest pain, confusion, headache(s) or syncope Review of Systems General: Reports: Other (Generalized weakness and dizziness) Card: Reports: lightheadedness; Denies: chest pain, palpitations, irregular heart rhythm, swelling of feet/ankles, syncope, orthopnea, leg pain with exertion or acrocyanosis Neuro: Reports: dizziness; Denies: headache(s), numbness in extremities, weakness in extremities, sensory changes, frequent falls, confusion, behavioral changes, difficulty communicating thoughts or involuntary movements PFS ED PFSH: Medical History Abnormal cardiovascular stress test (08/2021) CAD (coronary artery disease) COPD (chronic obstructive pulmonary disease) Diabetes mellitus, type II Graves disease Status post radioactive iodine treatment now with hypothyroidism History of cerebral angiography 09/2021 at [facility] - mild plaque in bilateral carotids at carotid bulb (20-25%), at level of skull base, 70% concentric stenosis, high grade 90-95% stenosis at V4 segment of PICA HTN (hypertension) Hyperlipidemia Secondary hypothyroidism Status post treatment for Graves' disease Surgical History History of cardiac catheterization ~2005 LAD and RCA stents placed; 2016 patent RCA and LAD stents; 09/2021 LAD stent patent, 90% 1st diagonal, patent circ and OM, RCA with 95% in-stent restenosis treated with balloon angioplasty S/P appendectomy S/P cholecystectomy (2017) S/P PTCA (percutaneous transluminal coronary angioplasty) 2021 S/P splenectomy Status post incision and drainage (2018) gluteal/perineal abscess Family History Father CAD (coronary artery disease) Diabetes Myocardial infarction Grandfather CAD (coronary artery disease) Cancer Diabetes Family/Other CAD (coronary artery disease) at 50 Cancer Chronic kidney disease (CKD) Diabetes Lung disease Mother Cancer Lung disease Denies family history of Clotting disorder Dementia Suicide Anesthesia complication Bleeding disorder Stroke Social History Smoking and tobacco status: current every day smoker cigarettes Packs smoked per day: 1 Alcohol intake: current Alcohol intake frequency: few times a week Alcohol type: beer Substance/Drug Use: former Physical Exam Const: COMMON NORMALS: no acute distress, average body habitus, patient oriented x3, no limitations, healthy appearing, alert and well nourished HENMT: COMMON NORMALS: normocephalic, atraumatic, hearing grossly normal bilaterally, external ears normal, EAC's normal, TM's normal bilaterally, Normal external nose present, Normal nasal mucous membranes and turbinates present, moist oral mucous membranes, oropharynx normal, dentition normal and gingiva normal HEAD & SCALP: normocephalic and atraumatic NOSE: Normal external nose present and Normal nasal mucous membranes and turbinates present EXTERNAL EAR: Yes external ears normal EXTERNAL AUDITORY CANAL: EAC's normal TYMPANIC MEMBRANE: TM's normal bilaterally Neck/C-Spine: COMMON NORMALS: no JVD Chest: COMMONS NORMALS: normal inspection of the chest, normal palpation of entire chest wall, normal inspection of the breasts and normal palpation of the breasts Breast/axilla inspection: Yes normal inspection of the breasts BREAST/AXILLA PALPATION: Yes normal palpation of the breasts Resp: COMMON NORMALS: normal respiratory effort, No retractions, No use of accessory muscles, clear to auscultation bilaterally and percussion normal AUSCULTATION: clear to auscultation bilaterally PERCUSSION: percussion normal Cardio: COMMON NORMALS: no JVD, regular rate, regular rhythm, S1 normal heart sound present, S2 normal heart sound present, No gallops present (Cardio), No clicks present (Cardio), No murmurs present (Cardio), No rub (Cardio) and Peripheral pulses 2+ throughout RATE: regular rate RHYTHM: regular rhythm HEART SOUNDS: S1 normal heart sound present and S2 normal heart sound present PERIPHERAL PULSES: Peripheral pulses 2+ throughout : COMMON NORMALS: Yes no CVA tenderness BLADDER/KIDNEY EXAM: Yes no CVA tenderness Back/Pelvis: COMMON NORMALS: no CVA tenderness, thoracic and lumbar spine normal to inspection, no thoracic nor lumbar tenderness, thoraco-lumbar ROM normal and straight leg raise negative bilaterally Neuro: COMMON NORMALS: patient oriented x3 SENSORIUM/ORIENTATION: Yes alert Course ED course: Patient monitored in ER for several hours without any acute distress. Blood pressure normalized. Blood work was within normal limit. Close follow-up PCP and cardiology recommended. I personally reviewed all his medications.. Hold off on hydralazine until discussed this with intake specialist and his primary doctor. Reevaluation(s): Reevaluation #1: At 3:45 PM patient remained stable in no acute distress Reevaluation #2: At 3:56 PM patient was reevaluated again again resting comfortably not in acute distress. He continues to denies any chest pain, shortness of breath or dizziness at this time. Vital Signs: Vital signs: Vital Signs Temperature 97.6 F 08/09/22 11:28 Pulse Rate 49 L 08/09/22 14:30 Respiratory Rate 19 H 08/09/22 14:30 Blood Pressure 148/64 08/09/22 14:30 Pulse Oximetry 98 08/09/22 14:30 Oxygen Delivery Me thod Room Air 08/09/22 14:07 MDM - Weakness Medical Decision Making 70-year-old male presents emergency room with dizziness and lightheadedness after taking his blood pressure medication. Patient with recent hospitalization for coronary artery disease intervention. While emergency room patient made stable no acute distress. Differential Diagnosis Likely anemia, hypoglycemia, hypothyroidism, sepsis and dehydration Lab Data 08/09/22 14:39 08/09/22 14:39 Laboratory Results WBC 12.2 10^3/uL (4.0-10.0) H 08/09/22 14:39 RBC 4.62 10^6/uL (4.1-5.3) 08/09/22 14:39 Hgb 15.6 g/dL (11.7-16.6) 08/09/22 14:39 Hct 45.7 % (42.0-52.0) 08/09/22 14:39 MCV 98.9 fl (80-94) H 08/09/22 14:39 MCH 33.8 pg (28.0-34.0) 08/09/22 14:39 MCHC 34.1 g/dL (30.0-36.0) 08/09/22 14:39 RDW 13.5 % (12.1-15.1) 08/09/22 14:39 Plt Count 345 10^3/cmm (130-400) 08/09/22 14:39 MPV 9.1 fL (7.4-10.4) 08/09/22 14:39 Neut % (Auto) 76.5 % 08/09/22 14:39 Lymph % (Auto) 8.6 % 08/09/22 14:39 [place] % (Auto) 11.8 % 08/09/22 14:39 Eos % (Auto) 2.3 % 08/09/22 14:39 Baso % (Auto) 0.4 % 08/09/22 14:39 Neut # (Auto) 9.32 10^3/uL (1.8-7.7) H 08/09/22 14:39 Lymph # (Auto) 1.1 10^3/uL (0.8-4.8) 08/09/22 14:39 [place] # (Auto) 1.4 10^3/uL (0.2-0.9) H 08/09/22 14:39 Eos # (Auto) 0.3 10^3/uL (0.0-0.8) 08/09/22 14:39 Baso # (Auto) 0.1 10^3/uL (0.0-0.1) 08/09/22 14:39 Nucleated RBC % (auto) 0 % 08/09/22 14:39 Nucleated RBCs # 0.0 /100WBC 08/09/22 14:39 Sodium 134 mmol/L (136-145) L 08/09/22 14:39 Potassium 4.2 mmol/L (3.5-5.1) 08/09/22 14:39 Chloride 99 mmol/L (98-107) 08/09/22 14:39 Carbon Dioxide 28 mmol/L (22-29) 08/09/22 14:39 Anion Gap 11.2 (5-19) 08/09/22 14:39 BUN 17 mg/dL (8-23) 08/09/22 14:39 Creatinine 0.6 mg/dL (0.7-1.2) L 08/09/22 14:39 GFR Calculation Not Reportable 08/09/22 14:39 Glucose 104 mg/dL (65-115) 08/09/22 14:39 Calculated Osmolality 280 mOsm/kg (285-295) L 08/09/22 14:39 Calcium 9.4 mg/dL (8.5-10.5) 08/09/22 14:39 Total Bilirubin 0.5 mg/dL (0.15-1.2) 08/09/22 14:39 AST 14 U/L (0-40) 08/09/22 14:39 ALT 20 U/L (0-41) 08/09/22 14:39 Alkaline Phosphatase 60 U/L (40-130) 08/09/22 14:39 Total Protein 6.9 g/dL (6.6-8.7) 08/09/22 14:39 Albumin 3.8 g/dL (3.5-5.2) 08/09/22 14:39 Globulin 3.1 g/dL (1.3-4.6) 08/09/22 14:39 EKG Data Sinus bradycardia rate of [address] ST depression.: Prior EKG tracings: available for review Computer generated interpretation: I personally reviewed old EKG patient with chronic bradycardia and no acute findings compared to this EKG. Discharge Plan Discharge Patient Disposition: Home Clinical Impression: Dizziness, Weakness, Hypotension Condition: Stable Prescriptions: No Action multivitamin Tablet 1 tab PO QAM meloxicam 15 mg tablet 15 mg PO QAM metformin 500 mg tablet 500 mg PO BID Hold Instructions: Resume on 10/04/21. aspirin [Adult Low Dose Aspirin] 81 mg tablet,delayed release (DR/EC) 81 mg PO QAM nitroglycerin [Nitrostat] 0.4 mg tablet, sublingual 0.4 mg SUBLINGUAL Q5M PRN (Reason: chest pain) Qty: 25 3RF Rx Instructions: do not exceed 3 doses per episode primidone 50 mg tablet 50 mg PO BEDTIME citalopram 40 mg tablet 40 mg PO QAM glipizide 10 mg tablet 10 mg PO BID fluticasone propionate 50 mcg/actuation spray,suspension 2 spray intranasal DAILY levothyroxine 175 mcg tablet 175 mcg PO QAM Mucinex DM 60-1,200 mg Tablet Extended Release 12 Hr 1 tab PO Q12H albuterol sulfate 90 mcg/actuation HFA aerosol inhaler 2 puff INHALATION QID PRN (Reason: Shortness Of Breath) furosemide 40 mg tablet 40 mg PO QAM clopidogrel 75 mg tablet 75 mg PO QAM isosorbide mononitrate 60 mg tablet extended release 24 hr 60 mg PO QAM amlodipine 10 mg tablet 10 mg PO BEDTIME olmesartan 40 mg tablet 40 mg PO QAM rosuvastatin 20 mg tablet 20 mg PO BEDTIME potassium chloride 20 mEq tablet extended release 20 meq PO QAM pantoprazole 40 mg Tablet,Delayed Release (Dr/Ec) 40 mg PO DAILY 30 Days Qty: 30 0RF hydralazine 50 mg Tablet 50 mg PO TID 30 Days Qty: 90 0RF Advair Diskus 500-50 mcg/dose blister with device 1 inh inhalation BID Qty: 60 0RF carvedilol 12.5 mg tablet 12.5 mg PO BID 30 Days Qty: 60 0RF Discharge Orders: Discharge ED (Routine); Ordered 08/09/22 Ordered By: Elidia Nuñez Referrals: Marivel Taylor NP [Primary Care Provider] - Discharge Diet: Low Salt Discharge Activity: Resume usual activity Patient Instructions: Opioid Safety, Pain Management Coding Level of Care Code ED Ms Access Database Developer for Armando Kay
[2022-08-09 14:07] VITALS: BP 141/60; PULSE 52; RESP 20; O2SAT 97
[2022-08-09 14:24] VITALS: BP 130/65; BP 136/64; BP 139/56; PULSE 52; PULSE 54; PULSE 55
[2022-08-09 14:30] VITALS: BP 148/64; PULSE 49; RESP 19; O2SAT 98
[2022-08-09 14:52] LABS: Basophils # 0.1 10^3/uL (0.0-0.1); Basophils % 0.4 %; Eosinophils # 0.3 10^3/uL (0.0-0.8); Eosinophils % 2.3 %; Hematocrit 45.7 % (42.0-52.0); Hemoglobin 15.6 g/dL (11.7-16.6); Lymphocytes # 1.1 10^3/uL (0.8-4.8); Lymphocytes % 8.6 %; Mean Corpuscular HGB Conc 34.1 g/dL (30.0-36.0); Mean Corpuscular Hemoglobin 33.8 pg (28.0-34.0); Mean Corpuscular Volume 98.9 fl (80-94); Mean Platelet Volume 9.1 fL (7.4-10.4); Monocytes # 1.4 10^3/uL (0.2-0.9); Monocytes % 11.8 %; Neutrophils # 9.32 10^3/uL (1.8-7.7); Neutrophils % 76.5 %; Nucleated Red Blood Cells % 0 %; Platelet Count 345 10^3/cmm (130-400); Red Blood Count 4.62 10^6/uL (4.1-5.3); Red Cell Distribution Width 13.5 % (12.1-15.1); White Blood Count 12.2 10^3/uL (4.0-10.0)
[2022-08-09 15:04] LABS: Alanine Aminotransferase 20 U/L (0-41); Albumin Level 3.8 g/dL (3.5-5.2); Alkaline Phosphatase 60 U/L (40-130); Anion Gap 11.2 (5-19); Aspartate Amino Transferase 14 U/L (0-40); Blood Urea Nitrogen 17 mg/dL (8-23); Calcium 9.4 mg/dL (8.5-10.5); Carbon Dioxide 28 mmol/L (22-29); Chloride 99 mmol/L (98-107); Globulin 3.1 g/dL (1.3-4.6); Glucose 104 mg/dL (65-115); Osmolality Calculated 280 mOsm/kg (285-295); Potassium 4.2 mmol/L (3.5-5.1); Sodium 134 mmol/L (136-145); Total Bilirubin 0.5 mg/dL (0.15-1.2); Total Protein 6.9 g/dL (6.6-8.7)
[2022-08-09 16:14] VITALS: BP 151/68; PULSE 60; RESP 19; O2SAT 97
== END 2022-08-09 16:16 | disposition home or self-care (01) ==
PROVIDERS: Emergency Provider Family Medicine; PCP Nurse Practitioner Family
DX: R42 Dizziness and giddiness (principal); R53.1 Weakness; I95.9 Hypotension, unspecified; Z79.84 Long term (current) use of oral hypoglycemic drugs; Z79.82 Long term (current) use of aspirin; Z79.02 Long term (current) use of antithrombotics/antiplatelets; F17.210 Nicotine dependence, cigarettes, uncomplicated; I25.10 Atherosclerotic heart disease of native coronary artery without angina pectoris; J44.9 Chronic obstructive pulmonary disease, unspecified; E11.9 Type 2 diabetes mellitus without complications; I10 Essential (primary) hypertension; E78.5 Hyperlipidemia, unspecified
CPT/HCPCS: 36415; 80053; 85025; 99283

== ENCOUNTER → 2022-08-14 09:36 | Outpatient (BNVA) | payer MEDICARE, OTHER, SELFPAY | PROVIDERS: PCP Nurse Practitioner Family; Visit Provider Nurse Practitioner Family | DX: I25.118 Atherosclerotic heart disease of native coronary artery with other forms of angina pectoris (principal); I10 Essential (primary) hypertension | CPT/HCPCS: 36415; 80048; 99214 ==

== ENCOUNTER 2022-09-06 10:34 | Outpatient (CLI) | payer MEDICARE, OTHER, SELFPAY ==
[2022-09-06 11:30] LABS: Basophils # 0.1 10^3/uL (0.0-0.1); Basophils % 0.5 %; Eosinophils # 0.2 10^3/uL (0.0-0.8); Hematocrit 43.8 % (42.0-52.0); Hemoglobin 14.7 g/dL (11.7-16.6); Lymphocytes # 1.4 10^3/uL (0.8-4.8); Lymphocytes % 11.7 %; Mean Corpuscular HGB Conc 33.6 g/dL (30.0-36.0); Mean Corpuscular Hemoglobin 32.8 pg (28.0-34.0); Mean Corpuscular Volume 97.8 fl (80-94); Mean Platelet Volume 9.1 fL (7.4-10.4); Monocytes # 1.2 10^3/uL (0.2-0.9); Monocytes % 9.9 %; Neutrophils # 9.09 10^3/uL (1.8-7.7); Neutrophils % 75.3 %; Nucleated Red Blood Cells % 0 %; Platelet Count 363 10^3/cmm (130-400); Red Blood Count 4.48 10^6/uL (4.1-5.3); Red Cell Distribution Width 13.3 % (12.1-15.1); White Blood Count 12.1 10^3/uL (4.0-10.0)
[2022-09-06 11:50] LABS: Anion Gap 13.9 (5-19); Blood Urea Nitrogen 18 mg/dL (8-23); Calcium 8.9 mg/dL (8.5-10.5); Carbon Dioxide 27 mmol/L (22-29); Chloride 99 mmol/L (98-107); Glucose 106 mg/dL (65-115); Osmolality Calculated 284 mOsm/kg (285-295); Potassium 3.9 mmol/L (3.5-5.1); Sodium 136 mmol/L (136-145)
--- NOTE | 2022-09-06 11:59 | ECG_ITS ---
[facility] Test Date: 2022-09-06 Pat Name: Yandel Jennings Department: Room: Gender: Male Nursing Administrator: : 1950 Requested By: Luis Ramos Order Number: [id number] Jayashree MD: Belkis Clarke M.D. Measurements Intervals [place] Rate: 60 P: 87 AL: 161 QRS: 73 QRSD: 94 T: 40 QT: 420 QTc: 422 Interpretive Statements SINUS RHYTHM WITH SINUS ARRHYTHMIA Compared to ECG 08/06/2022 14:25:42 Sinus bradycardia no longer present Electronically Signed On 09-06-2022 14:03:50 CDT by Belkis Clarke M.D. [email or web address]
== END 2022-09-06 10:35 | disposition home or self-care (01) ==
PROVIDERS: PCP Nurse Practitioner Family; Visit Provider Specialist
DX: H65.22 Chronic serous otitis media, left ear (principal)
CPT/HCPCS: 36415; 80048; 85025; 93005

== ENCOUNTER → 2022-09-10 09:55 | Outpatient (BNVA) | payer MEDICARE, OTHER, SELFPAY | PROVIDERS: PCP Nurse Practitioner Family; Visit Provider Internal Medicine Cardiovascular Disease | DX: I25.118 Atherosclerotic heart disease of native coronary artery with other forms of angina pectoris (principal); E78.49 Other hyperlipidemia; I10 Essential (primary) hypertension; E11.9 Type 2 diabetes mellitus without complications; R94.39 Abnormal result of other cardiovascular function study; R06.02 Shortness of breath; J44.9 Chronic obstructive pulmonary disease, unspecified; Z79.84 Long term (current) use of oral hypoglycemic drugs; F17.210 Nicotine dependence, cigarettes, uncomplicated | CPT/HCPCS: 99214 ==

== ENCOUNTER 2022-09-15 12:39 | Outpatient (CLI) | payer MEDICARE, OTHER, SELFPAY ==
[2022-09-15 13:06] LABS: Basophils # 0.1 10^3/uL (0.0-0.1); Basophils % 0.7 %; Eosinophils # 0.3 10^3/uL (0.0-0.8); Eosinophils % 2.7 %; Hematocrit 44.1 % (42.0-52.0); Hemoglobin 14.9 g/dL (11.7-16.6); Lymphocytes % 9.8 %; Mean Corpuscular HGB Conc 33.8 g/dL (30.0-36.0); Mean Corpuscular Hemoglobin 33.6 pg (28.0-34.0); Mean Corpuscular Volume 99.5 fl (80-94); Monocytes # 0.9 10^3/uL (0.2-0.9); Monocytes % 9.2 %; Neutrophils # 7.84 10^3/uL (1.8-7.7); Neutrophils % 77.1 %; Nucleated Red Blood Cells % 0 %; Platelet Count 372 10^3/cmm (130-400); Red Blood Count 4.43 10^6/uL (4.1-5.3); Red Cell Distribution Width 13.7 % (12.1-15.1); White Blood Count 10.2 10^3/uL (4.0-10.0)
[2022-09-15 13:25] LABS: Blood Urea Nitrogen 14 mg/dL (8-23); Carbon Dioxide 27 mmol/L (22-29); Chloride 99 mmol/L (98-107); Glucose 284 mg/dL (65-115); Osmolality Calculated 293 mOsm/kg (285-295); Sodium 136 mmol/L (136-145)
[2022-09-15 13:41] LABS: Anion Gap 14.2 (5-19); Potassium 4.2 mmol/L (3.5-5.1)
== END 2022-09-15 12:40 | disposition home or self-care (01) ==
PROVIDERS: PCP Nurse Practitioner Family; Visit Provider Specialist
DX: H65.22 Chronic serous otitis media, left ear (principal)
CPT/HCPCS: 36415; 80048; 85025

== ENCOUNTER → 2022-10-30 11:08 | Outpatient (BNVA) | payer MEDICARE, OTHER, SELFPAY | PROVIDERS: PCP Family Medicine; Visit Provider Internal Medicine Cardiovascular Disease | DX: I25.110 Atherosclerotic heart disease of native coronary artery with unstable angina pectoris (principal); E78.49 Other hyperlipidemia; I10 Essential (primary) hypertension; F17.218 Nicotine dependence, cigarettes, with other nicotine-induced disorders; E11.9 Type 2 diabetes mellitus without complications; J44.9 Chronic obstructive pulmonary disease, unspecified; Z79.84 Long term (current) use of oral hypoglycemic drugs | CPT/HCPCS: 99214 ==

== ENCOUNTER 2022-11-25 08:43 | Outpatient (CLI) | payer MEDICARE, OTHER, SELFPAY ==
[2022-11-25 09:30] LABS: Basophils # 0.1 10^3/uL (0.0-0.1); Basophils % 0.6 %; Eosinophils # 0.3 10^3/uL (0.0-0.8); Eosinophils % 2.5 %; Hematocrit 46.8 % (37-53); Lymphocytes # 1.1 10^3/uL (0.8-4.8); Lymphocytes % 9.2 %; Mean Corpuscular HGB Conc 34.4 g/dL (30-55); Mean Corpuscular Hemoglobin 33.5 pg (27-33); Mean Corpuscular Volume 97.5 fl (82-101); Monocytes # 1.1 10^3/uL (0.2-0.9); Neutrophils # 9.49 10^3/uL (1.8-7.7); Neutrophils % 78.4 %; Nucleated Red Blood Cells % 0 %; Platelet Count 391 10^3/cmm (157-399); Red Cell Distribution Width 12.6 % (12.1-15.1)
[2022-11-25 09:53] LABS: Anion Gap 11.2 (5-19); Blood Urea Nitrogen 17 mg/dL (8-23); Calcium 9.1 mg/dL (8.5-10.5); Carbon Dioxide 31 mmol/L (22-29); Chloride 94 mmol/L (98-107); Glucose 270 mg/dL (65-115); Osmolality Calculated 285 mOsm/kg (285-295); Potassium 4.2 mmol/L (3.5-5.1); Sodium 132 mmol/L (136-145)
== END 2022-11-25 08:44 | disposition home or self-care (01) ==
PROVIDERS: PCP Family Medicine; Visit Provider Specialist
DX: Z01.810 Encounter for preprocedural cardiovascular examination (principal)
CPT/HCPCS: 36415; 80048; 85025; 93005

== ENCOUNTER → 2023-03-20 09:38 | Outpatient (BNVA) | payer MEDICARE, OTHER, SELFPAY | PROVIDERS: PCP Family Medicine; Visit Provider Internal Medicine Cardiovascular Disease | DX: I25.118 Atherosclerotic heart disease of native coronary artery with other forms of angina pectoris (principal); E78.49 Other hyperlipidemia; I10 Essential (primary) hypertension; F17.218 Nicotine dependence, cigarettes, with other nicotine-induced disorders; E11.9 Type 2 diabetes mellitus without complications; Z79.84 Long term (current) use of oral hypoglycemic drugs | CPT/HCPCS: 99214 ==

== ENCOUNTER → 2023-05-08 10:12 | Outpatient (BNVA) | payer MEDICARE, OTHER, SELFPAY | PROVIDERS: PCP Family Medicine; Visit Provider Internal Medicine Cardiovascular Disease | DX: I25.10 Atherosclerotic heart disease of native coronary artery without angina pectoris (principal); E78.49 Other hyperlipidemia; I10 Essential (primary) hypertension; F17.218 Nicotine dependence, cigarettes, with other nicotine-induced disorders; R25.1 Tremor, unspecified | CPT/HCPCS: 99214 ==

== ENCOUNTER → 2023-06-16 09:19 | Outpatient (BNVA) | payer MEDICARE, OTHER, SELFPAY | PROVIDERS: PCP Family Medicine; Visit Provider Internal Medicine Cardiovascular Disease | DX: I25.10 Atherosclerotic heart disease of native coronary artery without angina pectoris (principal); I65.23 Occlusion and stenosis of bilateral carotid arteries; E78.49 Other hyperlipidemia; I10 Essential (primary) hypertension; F17.218 Nicotine dependence, cigarettes, with other nicotine-induced disorders; E11.9 Type 2 diabetes mellitus without complications; E03.8 Other specified hypothyroidism; Z79.84 Long term (current) use of oral hypoglycemic drugs | CPT/HCPCS: 99214 ==

== ENCOUNTER 2023-06-23 06:47 | Outpatient (CLI) | payer MEDICARE, OTHER, SELFPAY ==
--- NOTE | 2023-06-23 07:00 | USCV_ITS ---
Yandel Jennings Age: 72 Gender: M : 1950 Exam Date: 06/23/2023 07:00 Ordering Phys: Luly Durand MD ([email or web address]) Technologist: [place] [facility] [place]: hx of cad dizzy Risk Factors: Previous Vascular Surgery: Right Brachial BP: / Left Brachial BP: / Right Left Velocity (cm/s) Spectral Plaque Velocity (cm/s) Spectral Plaque Syst/Diast Broadening Syst/Diast Broadening 81.50/ 15.40 Prox CCA 123.40/ 25.50 67.20/ 12.80 Mid CCA 118.30/ 22.90 84.10/ 18.00 Hetro Distal CCA 115.70/ 28.10 Hetro 100.60/18.60 Hetro Prox ICA 121.00/ 26.00 Hetro 116.30/15.40 Hetro Mid ICA 127.70/ 17.70 Hetro 110.00/31.20 Distal ICA 115.70/ 20.40 151.00 ECA 89.90 1.40 ICA/CCA 1.10 Antegrade Vertebral Antegrade 69.50/ 17.90 cm/s 24.30/ 0.00 cm/s Tri Subclavian Tri 77.00 202.0 0 FINDINGS Moderate dense irregular plaques at the bifurcation and proximal internal carotid artery on the left side Mild to moderate plaques at the right bifurcation and proximal internal carotid artery intimal thickening and minimal plaques in the common carotid arteries bilaterally Antegrade flow in the vertebral arteries bilaterally. Elevated velocity in the left subclavian artery CONCLUSIONS Moderate dense irregular plaques at the bifurcation and proximal internal carotid artery on the left side with Doppler features, suggesting less than 50% stenosis. Mild to moderate plaques at the right bifurcation and proximal internal carotid artery suggesting less than 50% stenosis. Elevated velocity in the left subclavian artery, most likely related to tortuosity. No similar previous studies are available for comparison Dr Luly Durand MD [facility] (Electronically Signed) Final Date: 26 Jun 2023 21:15 S
== END 2023-06-23 06:48 | disposition home or self-care (01) ==
LOC: RAD 06:47
PROVIDERS: PCP Family Medicine; Visit Provider Internal Medicine Cardiovascular Disease
DX: I65.23 Occlusion and stenosis of bilateral carotid arteries (principal)
CPT/HCPCS: 93880

== ENCOUNTER 2023-07-03 15:25 | Inpatient (IN) | payer MEDICARE, OTHER, SELFPAY ==
[2023-07-03] VITALS (28 sets, daily range): BP systolic 134–180; BP diastolic 60–90; PULSE 56–92; RESP 16–26; TEMP 36.6–36.9; O2SAT 90–98
--- NOTE | 2023-07-03 15:37 | ED_ITS ---
HPI - General Adult 2 General: Chief complaint: General Medical Stated complaint: hypoglycemia Time Seen by Provider: 07/03/23 15:31 Source: patient and EMS Mode of arrival: EMS Limitations: no limitations History of Present Illness: 72-year-old male has a history of diabet es he is on metformin and glipizide. He states he had diarrhea for the last 2 to 3 days with some GI upset states he has not been eating much he had seen his PCP yesterday and called his glucose have been in the 40s family stated that he had been confused today to and called EMS EMS states when they had arrived he was awake but confused they checked his blood sugar and it was in the 20s give him some oral glucagon and some D10 it is now in the 200s he is awake and alert answering my questions he states that he has not eaten much and has had that diarrhea denies fever denies any pain Associated symptoms: Reports confusion; Deny chest pain, dyspnea, headache(s), nausea, rash or vomiting Review of Systems 2 Const: Denies: fever(s), chills, body aches or change in appetite ENMT: Denies: throat pain or dental pain Card: Denies: chest pain Resp: Denies: dyspnea GI: Denies: abdominal pain, nausea, vomiting or diarrhea Musc: Denies: neck pain or back pain Skin/Breast: Denies: rash Neuro: Reports: confusion; Denies: headache(s) PFSH ED 2 PFSH: Medical History Secondary hypothyroidism Status post treatment for Graves' disease Graves disease Status post radioactive iodine treatment now with hypothyroidism History of cerebral angiography 09/2021 at [facility] - mild plaque in bilateral carotids at carotid bulb (20-25%), at level of skull base, 70% concentric stenosis, high grade 90-95% stenosis at V4 segment of PICA COPD (chronic obstructive pulmonary disease) Diabetes mellitus, type II Abnormal cardiovascular stress test (08/2021) CAD (coronary artery disease) HTN (hypertension) Hyperlipidemia Surgical History History of cardiac catheterization ~2005 LAD and RCA stents placed; 2016 patent RCA and LAD stents; 09/2021 LAD stent patent, 90% 1st diagonal, patent circ and OM, RCA with 95% in-stent restenosis treated with balloon angioplasty; 07/2022 proximal RCA with 99% in-stent restenosis treated with balloon angioplasty and stent, proximal LAD 40% with YEHUDA 3 flow, prior LAD stent patent, no significant LM disease, Circ with luminal irregularities S/P appendectomy S/P splenectomy S/P cholecystectomy (2018) Status post incision and drainage (2018) gluteal/perineal abscess S/P PTCA (percutaneous transluminal coronary angioplasty) 2005, 2021, 07/2022 Family History Father CAD (coronary artery disease) Diabetes Myocardial infarction Grandfather CAD (coronary artery disease) Cancer Diabetes Family/Other CAD (coronary artery disease) at 50 Cancer Chronic kidney disease (CKD) Diabetes Lung disease Mother Cancer Lung disease Denies family history of Clotting disorder Dementia Suicide Anesthesia complication Bleeding disorder Stroke Social History Smoking and tobacco/nicotine status: current every day tobacco/nicotine user cigarettes Packs smoked per day: 1 Alcohol intake: current Alcohol intake frequency: few times a week Alcohol type: beer Substance/Drug Use: former Physical Exam 2 Const: COMMON NORMALS: patient oriented x3 HENMT: COMMON NORMALS: normocephalic and atraumatic HEAD & SCALP: n ormocephalic and atraumatic Eye: COMMON NORMALS: Equal, round and reactive pupils present and EOMs intact bilaterally PUPIL: Yes Equal, round and reactive pupils present Neck/C-Spine: COMMON NORMALS: full ROM and supple Chest: COMMONS NORMALS: normal inspection of the chest and normal palpation of entire chest wall Resp: COMMON NORMALS: normal respiratory effort, No retractions, No use of accessory muscles and clear to auscultation bilaterally AUSCULTATION: clear to auscultation bilaterally Cardio: COMMON NORMALS: regular rate, regular rhythm and No murmurs present (Cardio) RATE: regular rate RHYTHM: regular rhythm GI: COMMON NORMALS: Normal to inspection, nondistended, normoactive bowel sounds present, Soft to palpation, non-tender and no masses PALPATION: Yes Soft to palpation Extremity: COMMON NORMALS: normal to inspection and full ROM Neuro: COMMON NORMALS: patient oriented x3, moves all extremities and no focal motor deficits Psych: COMMON NORMALS: mental status grossly normal, Normal thought process present and cooperative THOUGHT PROCESS: Normal thought process present Skin: COMMON NORMALS: no rashes or lesions noted and no wounds GENERAL SKIN EXAM: no rashes or lesions noted Course 2 Vital Signs: Vital signs: Vital Signs Temperature 97.8 F 07/03/23 16:42 Pulse Rate 56 L 07/03/23 16:40 Respiratory Rate 16 07/03/23 15:36 Blood Pressure 180/81 07/03/23 16:40 Pulse Oximetry 96 07/03/23 16:40 MDM - General Adult Medical Decision Making Patient presents with hyperglycemia he is on glipizide his sugars got up to 200 and EMS and dropped down to 62 here was placed on a D10 drip here and will admit to the ICU. Medical Records I reviewed the patient's medical records. Lab Data I reviewed the patient's lab results. 07/03/23 16:07 07/03/23 16:07 Radiology Impressions Chest X-Ray 07/03/23 15:37 Impression: Atherosclerosis. Laboratory Results WBC 11.28 10^3/uL (3.29-11.43) 07/03/23 16:07 RBC 4.14 10^6/uL (3.85-5.65) 07/03/23 16:07 Hgb 14.00 g/dL (11.27-16.99) 07/03/23 16:07 Hct 42.0 % (37-53) 07/03/23 16:07 MCV 101.4 fl (82-101) H 07/03/23 16:07 MCH 33.8 pg (27-33) H 07/03/23 16:07 MCHC 33.3 g/dL (30-55) 07/03/23 16:07 RDW 12.7 % (12.1-15.1) 07/03/23 16:07 Plt Count 334 10^3/cmm (157-399) 07/03/23 16:07 MPV 9.1 fL (7.4-10.4) 07/03/23 16:07 Neut % (Auto) 77.3 % 07/03/23 16:07 Lymph % (Auto) 6.6 % 07/03/23 16:07 [place] % (Auto) 14.8 % 07/03/23 16:07 Eos % (Auto) 0.7 % 07/03/23 16:07 Baso % (Auto) 0.2 % 07/03/23 16:07 Neut # (Auto) 8.72 10^3/uL (1.8-7.7) H 07/03/23 16:07 Lymph # (Auto) 0.7 10^3/uL (0.8-4.8) L 07/03/23 16:07 [place] # (Auto) 1.7 10^3/uL (0.2-0.9) H 07/03/23 16:07 Eos # (Auto) 0.1 10^3/uL (0.0-0.8) 07/03/23 16:07 Baso # (Auto) 0.0 10^3/uL (0.0-0.1) 07/03/23 16:07 Nucleated RBC % (auto) 0 % 07/03/23 16:07 Nucleated RBCs # 0.0 /100WBC 07/03/23 16:07 Sodium 138 mmol/L (136-145) 07/03/23 16:07 Potassium 3.3 mmol/L (3.5-5.1) L 07/03/23 16:07 Chloride 104 mmol/L (98-107) 07/03/23 16:07 Carbon Dioxide 24 mmol/L (22-29) 07/03/23 16:07 Anion Gap 13.3 (5-19) 07/03/23 16:07 BUN 9 mg/dL (8-23) 07/03/23 16:07 Creatinine 0.5 mg/dL (0.7-1.2) L 07/03/23 16:07 GFR Calculation Not Reportable 07/03/23 16:07 Glucose 63 mg/dL (65-115) L 07/03/23 16:07 POC Glucose 126 mg/dL (70-110) H 07/03/23 16:33 Calculated Osmolality 283 mOsm/kg (285-295) L 07/03/23 16:07 Calcium 8.3 mg/dL (8.5-10.5) L 07/03/23 16:07 Total Bilirubin 0.2 mg/dL (0.15-1.2) 07/03/23 16:07 AST 22 U/L (0-40) 07/03/23 16:07 ALT 22 U/L (0-41) 07/03/23 16:07 Alkaline Phosphatase 51 U/L (40-130) 07/03/23 16:07 Total Protein 6.0 g/dL (6.6-8.7) L 07/03/23 16:07 Albumin 3.4 g/dL (3.5-5.2) L 07/03/23 16:07 Globulin 2.6 g/dL (1.3-4.6) 07/03/23 16:07 All radiology interpretation(s) finalized by discharge EKG Data EKG 1: I personally reviewed and interpreted this EKG as follows: EKG interpretation date: 07/03/23 EKG interpretation time: 16:36 Interpretation: sinus stuart hr [address] or t wave abnormalities qrs 92 qtc 397 Computer generated interpretation: Chest X-Ray 07/03/23 15:37 Impression: Atherosclerosis. Discharge Plan Discharge Condition: Stable Prescriptions: No Action multivitamin Tablet 1 tab PO QAM meloxicam 15 mg tablet 15 mg PO QAM aspirin [Adult Low Dose Aspirin] 81 mg tablet,delayed release (DR/EC) 81 mg PO QAM nitroglycerin [Nitrostat] 0.4 mg tablet, sublingual 0.4 mg SUBLINGUAL Q5M PRN (Reason: chest pain) Qty: 25 3RF Rx Instructions: do not exceed 3 doses per episode citalopram 40 mg tablet 40 mg PO QAM glipizide 10 mg tablet 10 mg PO BID fluticasone propionate 50 mcg/actuation spray,suspension 2 spray intranasal DAILY amlodipine 5 mg tablet 5 mg PO DAILY Qty: 90 5RF clopidogrel 75 mg tablet 75 mg PO QAM carvedilol 6.25 mg tablet 6.25 mg PO BID diphenoxylate-atropine 2.5-0.025 mg tablet 1 tab PO QID PRN (Reason: Diarrhea) topiramate 25 mg Tablet 75 mg PO BID levothyroxine 150 mcg tablet 150 mcg PO DAILY metformin 500 mg tablet extended release 24 hr 200 mg PO BID furosemide 40 mg tablet 40 mg PO DAILY isosorbide mononitrate 60 mg tablet extended release 24 hr 60 mg PO DAILY Klor-Con M20 20 mEq tablet,ER particles/crystals 20 meq PO DAILY olmesartan 40 mg tablet 40 mg PO DAILY rosuvastatin 20 mg tablet 20 mg PO DAILY albuterol sulfate 2.5 mg /3 mL (0.083 %) Solution For Nebulization 2.5 mg INHALATION Q4H PRN (Reason: Shortness Of Breath Or Wheezing) Referrals: Yandel Aguilar [Primary Care Provider] - Coding Level of Care Code ED Industrial Economist for Armn[facility] Kay
--- NOTE | 2023-07-03 15:37 | XR_ITS ---
WS: [id number] Portable AP upright chest, 07/03/2023 Clinical Data: ams Comparison: Portable chest, 08/06/2022 Findings: No nodules, masses or effusions are seen. The heart is normal. The pulmonary vascularity is not increased. No pneumonia or pneumothorax is seen. The aortic arch and descending thoracic aorta s how calcification and tortuosity. XR/XR chest 1V portable [id number] Impression: Atherosclerosis.
--- NOTE | 2023-07-03 15:44 | PC.NURSE ---
Glucose via fingerstick @1540: 96
--- NOTE | 2023-07-03 16:07 | PC.NURSE ---
Glucose @1605: 61 via fingerstick
[2023-07-03 16:10] LABS: Glucose Point of Care 61 mg/dL (70-110)
[2023-07-03 16:14] LABS: Basophils % 0.2 %; Eosinophils # 0.1 10^3/uL (0.0-0.8); Eosinophils % 0.7 %; Lymphocytes # 0.7 10^3/uL (0.8-4.8); Lymphocytes % 6.6 %; Mean Corpuscular HGB Conc 33.3 g/dL (30-55); Mean Corpuscular Hemoglobin 33.8 pg (27-33); Mean Corpuscular Volume 101.4 fl (82-101); Mean Platelet Volume 9.1 fL (7.4-10.4); Monocytes # 1.7 10^3/uL (0.2-0.9); Monocytes % 14.8 %; Neutrophils # 8.72 10^3/uL (1.8-7.7); Neutrophils % 77.3 %; Nucleated Red Blood Cells % 0 %; Platelet Count 334 10^3/cmm (157-399); Red Blood Count 4.14 10^6/uL (3.85-5.65); Red Cell Distribution Width 12.7 % (12.1-15.1); White Blood Count 11.28 10^3/uL (3.29-11.43)
[2023-07-03] MEDS: dextrose 10% 250 ML 1000 ML IV (16:17)
--- NOTE | 2023-07-03 16:36 | ECG_ITS ---
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 Measurements Intervals [place] Rate: 57 P: 56 SD: 169 QRS: 62 QRSD: 92 T: -9 QT: 402 QTc: 394 Interpretive Statements SINUS BRADYCARDIA NONSPECIFIC ST & T-WAVE ABNORMALITY Compared to ECG 11/25/2022 10:09:01 T-wave abnormality now present Sinus arrhythmia no longer present ST (T wave) deviation no longer present Early repolarization no longer present Electronically Signed On 07-03-2023 17:11:41 CDT by Farhat Munoz M.D. [id number]
[2023-07-03 16:37] LABS: Alanine Aminotransferase 22 U/L (0-41); Albumin Level 3.4 g/dL (3.5-5.2); Alkaline Phosphatase 51 U/L (40-130); Anion Gap 13.3 (5-19); Aspartate Amino Transferase 22 U/L (0-40); Blood Urea Nitrogen 9 mg/dL (8-23); Calcium 8.3 mg/dL (8.5-10.5); Carbon Dioxide 24 mmol/L (22-29); Chloride 104 mmol/L (98-107); Creatinine Clr Calc Pharmacy 98.3644; Globulin 2.6 g/dL (1.3-4.6); Glucose 63 mg/dL (65-115); Osmolality Calculated 283 mOsm/kg (285-295); Potassium 3.3 mmol/L (3.5-5.1); Sodium 138 mmol/L (136-145); Total Bilirubin 0.2 mg/dL (0.15-1.2)
--- NOTE | 2023-07-03 16:40 | PC.NURSE ---
Glucose Re-Check @1630: 126 via fingerstick
[2023-07-03 16:41] LABS: Glucose Point of Care 126 mg/dL (70-110)
[2023-07-03] MEDS: dextrose 10% 1,000 ML 75 ML IV (16:58)
--- NOTE | 2023-07-03 16:59 | PM.HP ---
Providers/Chief Complaint Primary Care Provider: Yandel Aguilar Chief Complaint: hypoglycemia History of Present Illness Yandel Jennings is a 72 year old male who presented to hospital for confusion related to low blood sugar, daughter at the bedside stating that her father was acting very somnolent she went to the drugstore correct lancets and check blood sugar it was extremely low, 911 was called, patient was given peanut crackers and juice, that only helped him to get his sugar up to 60s, patient was put on D10 in the ER. Hospitalist was consulted to admit the patient to ICU. Patient was awake and alert able to talk and was endorsing feeling better. Patient was recently experiencing vomiting and diarrhea, grandsons were sick around him Review of Systems Const: Denies: fever(s) Eyes: Denies: change in vision ENMT: Denies: throat pain Card: Denies: chest pain Resp: Denies: dyspnea GI: Denies: abdominal pain : Denies: flank pain Medications/Allergies Home Medications Medication Instructions Recorded Confirmed Last Taken Type aspirin 81 mg tablet,delayed 81 mg PO [facility] 07/26/19 07/03/23 07/03/23 History release (Adult Low Dose Aspirin) meloxicam 15 mg tablet 15 mg PO [facility] 07/26/19 07/03/23 07/03/23 History multivitamin 1 tab PO [facility] 07/26/19 07/03/23 07/03/23 History nitroglycerin 0.4 mg sublingual 0.4 mg sublingual Q5M PRN chest 08/18/20 07/03/23 08/06/22 Rx tablet (Nitrostat) pain #25 tabs citalopram 40 mg tablet 40 mg PO [facility] 09/19/21 07/03/23 07/03/23 History fluticasone propionate 50 2 spray intranasal DAILY 09/19/21 07/03/23 07/03/23 History mcg/actuation nasal spray,suspension glipizide 10 mg tablet 10 mg PO BID 09/19/21 07/03/23 07/03/23 History clopidogrel 75 mg tablet 75 mg PO QA 08/06/22 07/03/23 07/03/23 History amlodipine 5 mg tablet 5 mg PO DAILY #90 tabs 11/25/22 07/03/23 07/03/23 Rx albuterol sulfate 2.5 mg/3 mL 2.5 mg inhalation Q4H PRN 07/03/23 07/03/23 Unknown History (0.083 %) solution for nebulization Shortness Of Breath Or Wheezing carvedilol 6.25 mg tablet 6.25 mg PO BID 07/03/23 07/03/23 07/03/23 History diphenoxylate-atropine 2.5 1 tab PO QID PRN Diarrhea 07/03/23 07/03/23 Unknown History mg-0.025 mg tablet furosemide 40 mg tablet 40 mg PO DAILY 07/03/23 07/03/23 07/03/23 History isosorbide mononitrate 60 mg 60 mg PO DAILY 07/03/23 07/03/23 07/03/23 History tablet,extended release 24 hr levothyroxine 150 mcg tablet 150 mcg PO DAILY 07/03/23 07/03/23 07/03/23 History metformin 500 mg tablet,extended 200 mg PO BID 07/03/23 07/03/23 07/03/23 History release 24 hr olmesartan 40 mg tablet 40 mg PO DAILY 07/03/23 07/03/23 07/03/23 History potassium chloride 20 mEq 20 meq PO DAILY 07/03/23 07/03/23 07/03/23 History tablet,extended release(part/cryst) (Klor-Con M) rosuvastatin 20 mg tablet 20 mg PO DAILY 07/03/23 07/03/23 07/03/23 History topiramate 25 mg tablet 75 mg PO BID 07/03/23 07/03/23 07/03/23 History Allergies Allergy/AdvReac Type Severity Reaction Status Date / Time codeine Allergy Unknown Unknown Verified 06/16/23 10:16 PFSH Acute PFSH: Medical History Secondary hypothyroidism Status post treatment for Graves' disease Graves disease Status post radioactive iodine treatment now with hypothyroidism History of cerebral angiography 09/2021 at [facility] - mild plaque in bilateral carotids at carotid bulb (20-25%), at level of skull base, 70% concentric stenosis, high grade 90-95% stenosis at V4 segment of PICA COPD (chronic obstructive pulmonary disease) Diabetes mellitus, type II Abnormal cardiovascular stress test (08/2021) CAD (coronary artery disease) HTN (hypertension) Hyperlipidemia Surgical History History of cardiac catheterization ~2005 LAD and RCA stents placed; 2016 patent RCA and LAD stents; 09/2021 LAD stent patent, 90% 1st diagonal, patent circ and OM, RCA with 95% in-stent restenosis treated with balloon angioplasty; 07/2022 proximal RCA with 99% in-stent restenosis treated with balloon angioplasty and stent, proximal LAD 40% with YEHUDA 3 flow, prior LAD stent patent, no significant LM disease, Circ with luminal irregularities S/P appendectomy S/P splenectomy S/P cholecystectomy (2018) Status post incision and drainage (2018) gluteal/perineal abscess S/P PTCA (percutaneous transluminal coronary angioplasty) 2005, 2021, 07/2022 Family History Father CAD (coronary artery disease) Diabetes Myocardial infarction Grandfather CAD (coronary artery disease) Cancer Diabetes Family/Other CAD (coronary artery disease) at 50 Cancer Chronic kidney disease (CKD) Diabetes Lung disease Mother Cancer Lung disease Denies family history of Clotting disorder Dementia Suicide Anesthesia complication Bleeding disorder Stroke Social History Smoking and tobacco/nicotine status: current every day tobacco/nicotine user cigarettes Packs smoked per day: 1 Alcohol intake: current Alcohol intake frequency: few times a week Alcohol type: beer Substance/Drug Use: former Vitals/I&O/Wt Last Vital Signs Temp 97.8 F 07/03/23 16:42 Pulse 56 L 07/03/23 16:40 Resp 16 07/03/23 15:36 BP 180/81 07/03/23 16:40 Pulse Ox 96 07/03/23 16:40 Weight last 48 hrs Weight 88.451 kg Physical Exam Narrative: Pleasant cooperative N no signs of addisonian crisis Nonfocal neuroexam Sign of dehydration Awake and alert S1, S2 Pleasant and cooperative Family at the bedside Doing well on room air Data 07/04/23 04:53 07/04/23 04:53 A&P Assessment and plan (1) Diabetes mellitus, type II: Qualifiers: Diabetes mellitus jail insulin use: without terminal make up operator use Diabetes mellitus complication status: without complication Qualified Code(s): E11.9 - Type 2 diabetes mellitus without complications (2) Secondary hypothyroidism: (3) Hypoglycemia: (4) Metabolic encephalopathy: Plan Metabolic encephalopathy related to hypoglycemia Start D10 Admit to ICU Close monitoring of blood sugar Discontinue glipizide Check A1c level Check BMP and CBC Check electrolytes No active chest pain, chest x-ray unremarkable EKG unremarkable Patient is full code Continue diet at this point Gastroenteritis, conservative management Attestations Medical Necessity Statement*: More than 2 midnights anticipated currently need ICU for hypoglycemia Coding Level of Care Code Acute Code for Chg Fwd Diagnoses Type 2 diabetes mellitus without complication, without long-term current use of insulin E11.9 Diabetes mellitus terminal make up operator insulin use: without jail use Diabetes mellitus complication status: without complication Secondary hypothyroidism E03.8 Hypoglycemia E16.2 Metabolic encephalopathy G93.41
--- NOTE | 2023-07-03 17:11 | PC.NURSE ---
Glucose Re-Check: 118 @[address] Jones to implement Q1hr glucose checks.
[2023-07-03 17:13] LABS: Glucose Point of Care 113 mg/dL (70-110)
[2023-07-03 17:13] LABS: Add Urine Microscopic? YES; Bilirubin Urine Neg (Negative); Blood Urine 2+ (Negative); Glucose Urine UA Norm (Normal); Ketones Urine Negative (Negative); Leukocyte Esterase Urine Negative (Negative); Nitrate Urine Negative (Negative); Protein Urine Neg (Negative); Urine Appearance Clear (CLEAR); Urine Color Yellow (Yellow); Urobilinogen Urine Norm (Negative); pH Urine 6 (5-7)
--- NOTE | 2023-07-03 17:19 | PC.NURSE ---
Report called to Agatha in ICU, no questions verbalized at this time.
[2023-07-03 17:20] LABS: Add Urine Culture? No; Mucus Urine TRACE /hpf; RBC Urine 15-25 /hpf (0-2)
[2023-07-03 17:41] LABS: Glucose Point of Care 104 mg/dL (70-110)
[2023-07-03] MEDS: dexamethasone 10 mg/mL INJ IVP (18:11)
[2023-07-03] MEDS: enoxaparin 40 mg/0.4 mL Syringe SUBCUT (18:12)
[2023-07-03] MEDS: topiramate 25 mg Tablet 75 MG PO (18:12)
[2023-07-03 18:56] LABS: Glucose Point of Care 95 mg/dL (70-110)
[2023-07-03 19:07] LABS: Thyroid Stimulating Hormone 0.06 uIU/mL (0.27-4.20)
[2023-07-03 20:30] LABS: Glucose Point of Care 90 mg/dL (70-110)
[2023-07-03 20:53] LABS: Estmated Average Glucose 120; Hemoglobin A1C 5.8 % (4.0-6.0)
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
[2023-07-03] MEDS: morphine 4 mg/mL SDV 1 mL 1 MG IVP ×2 (21:25→23:21)
[2023-07-03 21:39] LABS: Glucose Point of Care 89 mg/dL (70-110)
[2023-07-03 22:46] LABS: Glucose Point of Care 113 mg/dL (70-110)
[2023-07-04] VITALS (29 sets, daily range): BP systolic 130–187; BP diastolic 63–132; PULSE 54–76; RESP 15–24; TEMP 36.5–36.6; O2SAT 89–97; BMI 24.7; BMI 24.4
--- NOTE | 2023-07-04 | PC.NURSE ---
Pain Patient still complaining of severe shoulder/knee pain despite initial administration of morphine. Dr. Orr notified; order received for additional one time dose of 1 mg morphine IVP. See MAR for details.
[2023-07-04 00:08] LABS: Glucose Point of Care 188 mg/dL (70-110)
[2023-07-04 01:37] LABS: Glucose Point of Care 266 mg/dL (70-110)
--- NOTE | 2023-07-04 01:46 | PC.NURSE ---
D10 Paused [address] Orr notified of increasing blood sugars. Order received to pause D10. See MAR for paused time.
[2023-07-04 02:45] LABS: Glucose Point of Care 240 mg/dL (70-110)
--- NOTE | 2023-07-04 03:00 | PC.NURSE ---
Pain Patient still complaining of severe pain in his shoulder/knee. Patient stated that the morphine did not help that much. Dr. Orr notified; order received for 0.5 mg dilaudid IVP Q4H PRN for pain as well as to stop morphine order. See MAR.
[2023-07-04] MEDS: HYDROmorphone 1 mg/mL INJ 1 mL 0.5 MG IVP (04:55)
[2023-07-04 04:56] LABS: Glucose Point of Care 254 mg/dL (70-110)
[2023-07-04 05:26] LABS: Hematocrit 40.5 % (37-53); Lymphocytes # 0.5 10^3/uL (0.8-4.8); Lymphocytes % 6.2 %; Mean Corpuscular HGB Conc 33.8 g/dL (30-55); Mean Corpuscular Hemoglobin 33.3 pg (27-33); Mean Corpuscular Volume 98.5 fl (82-101); Mean Platelet Volume 9.5 fL (7.4-10.4); Monocytes # 0.4 10^3/uL (0.2-0.9); Monocytes % 4.5 %; Neutrophils # 7.72 10^3/uL (1.8-7.7); Nucleated Red Blood Cells % 0 %; Platelet Count 357 10^3/cmm (157-399); Red Blood Count 4.11 10^6/uL (3.85-5.65); Red Cell Distribution Width 12.6 % (12.1-15.1); White Blood Count 8.68 10^3/uL (3.29-11.43)
[2023-07-04 05:46] LABS: Anion Gap 12.5 (5-19); Blood Urea Nitrogen 8 mg/dL (8-23); Calcium 8.6 mg/dL (8.5-10.5); Carbon Dioxide 21 mmol/L (22-29); Chloride 103 mmol/L (98-107); Creatinine Clr Calc Pharmacy 96.8646; Glucose 288 mg/dL (65-115); Magnesium 1.6 mg/dL (1.7-2.3); Osmolality Calculated 285 mOsm/kg (285-295); Phosphorus 3.2 mg/dL (2.5-4.5); Potassium 3.5 mmol/L (3.5-5.1); Sodium 133 mmol/L (136-145)
[2023-07-04] MEDS: aspirin 81 mg EC Tablet PO (05:59)
[2023-07-04] MEDS: clopidogrel 75 mg Tablet PO (05:59)
[2023-07-04 06:08] LABS: Glucose Point of Care 253 mg/dL (70-110)
[2023-07-04 07:27] LABS: Glucose Point of Care 257 mg/dL (70-110)
[2023-07-04] MEDS: losartan 50 mg Tablet 100 MG PO (08:29)
[2023-07-04] MEDS: levothyroxine 150 mcg Tablet PO (08:29)
[2023-07-04] MEDS: insulin lispro 100 unit/1 mL SUBCUT ×2 (08:31→12:12)
[2023-07-04] MEDS: potassium chloride ER 20 mEq Tablet PO (08:31)
[2023-07-04] MEDS: isosorbide mononitrate ER 60 mg Tablet PO (08:31)
[2023-07-04] MEDS: topiramate 25 mg Tablet 75 MG PO (08:31)
--- NOTE | 2023-07-04 09:58 | P.DS_ITS ---
Discharge Providers Date of Admission: 07/03/23 17:14 Date of Discharge: July 04, 2023 Attending Provider at Admission: Adalgisa Goodman MD Attending Provider at Discharge: Diego Jones MD Primary Care Provider: Yandel Aguilar Reason for Visit Reason for Visit: hypoglycemia Hospital Course Hospital Course 72-year-old male who present to the hospital for metabolic encephalopathy related to hypoglycemia which improved with use of D10, he was monitored in the ICU, patient has been requested not to take glipizide which can cause low blood sugar with hemoglobin less than 7 he will be considered high risk for hypoglycemic events, his hemoglobin A1c is around 5.8. I have discontinued his glipizide and decrease the dose of metformin to once daily only. Patient is tolerating diet, patient suffered from viral gastroenteritis, grandsons are sick with viral infection as well. Potassium and magnesium replenished. Patient be discharged home with stable hemodynamics. Patient and family counseled on watching signs of hypoglycemia and how it could be very dangerous if gets missed. Physical Exam Narrative: Pleasant cooperative Nonfocal neuroexam Tolerating diet S1, S2 Doing well on room air Discharge Data Studies Completed and Pending Completed Studies During Hospitalization Category Date Time Status XR chest 1V portable [id number] Stat Exams 07/03/23 15:37 Completed Radiology Impressions Chest X-Ray 07/03/23 15:37 Impression: Atherosclerosis. Laboratory Results WBC 8.68 10^3/uL (3.29-11.43) 07/04/23 04:53 RBC 4.11 10^6/uL (3.85-5.65) 07/04/23 04:53 Hgb 13.70 g/dL (11.27-16.99) 07/04/23 04:53 Hct 40.5 % (37-53) 07/04/23 04:53 MCV 98.5 fl (82-101) 07/04/23 04:53 MCH 33.3 pg (27-33) H 07/04/23 04:53 MCHC 33.8 g/dL (30-55) 07/04/23 04:53 RDW 12.6 % (12.1-15.1) 07/04/23 04:53 Plt Count 357 10^3/cmm (157-399) 07/04/23 04:53 MPV 9.5 fL (7.4-10.4) 07/04/23 04:53 Neut % (Auto) 89.0 % 07/04/23 04:53 Lymph % (Auto) 6.2 % 07/04/23 04:53 [place] % (Auto) 4.5 % 07/04/23 04:53 Eos % (Auto) 0.0 % 07/04/23 04:53 Baso % (Auto) 0.0 % 07/04/23 04:53 Neut # (Auto) 7.72 10^3/uL (1.8-7.7) H 07/04/23 04:53 Lymph # (Auto) 0.5 10^3/uL (0.8-4.8) L 07/04/23 04:53 [place] # (Auto) 0.4 10^3/uL (0.2-0.9) 07/04/23 04:53 Eos # (Auto) 0.0 10^3/uL (0.0-0.8) 07/04/23 04:53 Baso # (Auto) 0.0 10^3/uL (0.0-0.1) 07/04/23 04:53 Nucleated RBC % (auto) 0 % 07/04/23 04:53 Nucleated RBCs # 0.0 /100WBC 07/04/23 04:53 Sodium 133 mmol/L (136-145) L 07/04/23 04:53 Potassium 3.5 mmol/L (3.5-5.1) 07/04/23 04:53 Chloride 103 mmol/L (98-107) 07/04/23 04:53 Carbon Dioxide 21 mmol/L (22-29) L 07/04/23 04:53 Anion Gap 12.5 (5-19) 07/04/23 04:53 BUN 8 mg/dL (8-23) 07/04/23 04:53 Creatinine 0.5 mg/dL (0.7-1.2) L 07/04/23 04:53 GFR Calculation Not Reportable 07/04/23 04:53 Glucose 288 mg/dL (65-115) H 07/04/23 04:53 POC Glucose 257 mg/dL (70-110) H 07/04/23 07:10 Estimat Average Glucose 120 07/03/23 18:06 Hemoglobin A1c 5.8 % (4.0-6.0) 07/03/23 18:06 Calculated Osmolality 285 mOsm/kg (285-295) 07/04/23 04:53 Calcium 8.6 mg/dL (8.5-10.5) 07/04/23 04:53 Phosphorus 3.2 mg/dL (2.5-4.5) 07/04/23 04:53 Magnesium 1.6 mg/dL (1.7-2.3) L 07/04/23 04:53 Total Bilirubin 0.2 mg/dL (0.15-1.2) 07/03/23 16:07 AST 22 U/L (0-40) 07/03/23 16:07 ALT 22 U/L (0-41) 07/03/23 16:07 Alkaline Phosphatase 51 U/L (40-130) 07/03/23 16:07 Total Protein 6.0 g/dL (6.6-8.7) L 07/03/23 16:07 Albumin 3.4 g/dL (3.5-5.2) L 07/03/23 16:07 Globulin 2.6 g/dL (1.3-4.6) 07/03/23 16:07 TSH 0.06 uIU/mL (0.27-4.20) L 07/03/23 16:07 Urine Color Yellow (Yellow) 07/03/23 16:38 Urine Appearance Clear (CLEAR) 07/03/23 16:38 Urine pH 6 (5-7) 07/03/23 16:38 Ur Specific [place] 1.020 (1.005-1.030) 07/03/23 16:38 Urine Protein Neg (Negative) 07/03/23 16:38 Urine Glucose (UA) Norm (Normal) 07/03/23 16:38 Urine Ketones Negative (Negative) 07/03/23 16:38 Urine Blood 2+ (Negative) H 07/03/23 16:38 Urine Nitrate Negative (Negative) 07/03/23 16:38 Urine Bilirubin Neg (Negative) 07/03/23 16:38 Urine Urobilinogen Norm mg/dL (Negative) 07/03/23 16:38 Ur Leukocyte Esterase Negative (Negative) 07/03/23 16:38 Urine RBC 15-25 /hpf (0-2) H 07/03/23 16:38 Urine WBC None /hpf (0-5) 07/03/23 16:38 Ur Squamous Epith Cells None /hpf (0-5) 07/03/23 16:38 Amorphous Sediment Not Reportable 07/03/23 16:38 Urine Bacteria None /hpf (NONE) 07/03/23 16:38 Urine Mucus Trace /hpf 07/03/23 16:38 Vitals Last Vital Signs Temp 97.8 F 07/04/23 08:00 Pulse 64 07/04/23 09:00 Resp 20 H 07/04/23 09:00 BP 159/132 07/04/23 09:00 Pulse Ox 95 07/04/23 09:00 O2 Del Method Room Air 07/04/23 09:00 Discharge Plan Discharge Patient Disposition: Home Condition: Stable Prescriptions: Continued multivitamin Tablet 1 tab PO QAM meloxicam 15 mg tablet 15 mg PO QAM aspirin [Adult Low Dose Aspirin] 81 mg tablet,delayed release (DR/EC) 81 mg PO QAM nitroglycerin [Nitrostat] 0.4 mg tablet, sublingual 0.4 mg SUBLINGUAL Q5M PRN (Reason: chest pain) Qty: 25 3RF Rx Instructions: do not exceed 3 doses per episode citalopram 40 mg tablet 40 mg PO QAM fluticasone propionate 50 mcg/actuation spray,suspension 2 spray intranasal DAILY amlodipine 5 mg tablet 5 mg PO DAILY Qty: 90 5RF clopidogrel 75 mg tablet 75 mg PO QAM carvedilol 6.25 mg tablet 6.25 mg PO BID diphenoxylate-atropine 2.5-0.025 mg tablet 1 tab PO QID PRN (Reason: Diarrhea) topiramate 25 mg Tablet 75 mg PO BID levothyroxine 150 mcg tablet 150 mcg PO DAILY furosemide 40 mg tablet 40 mg PO DAILY isosorbide mononitrate 60 mg tablet extended release 24 hr 60 mg PO DAILY Klor-Con M20 20 mEq tablet,ER particles/crystals 20 meq PO DAILY olmesartan 40 mg tablet 40 mg PO DAILY rosuvastatin 20 mg tablet 20 mg PO DAILY albuterol sulfate 2.5 mg /3 mL (0.083 %) Solution For Nebulization 2.5 mg INHALATION Q4H PRN (Reason: Shortness Of Breath Or Wheezing) Changed metformin 500 mg tablet extended release 24 hr 500 mg PO DAILY Qty: 30 0RF Discontinued glipizide 10 mg tablet 10 mg PO BID Discharge Orders: Discharge Order (Routine); Ordered 07/04/23 Ordered By: Diego Jones Referrals: Yandel Aguilar [Primary Care Provider] - Patient Instructions: Opioid Safety Discharge Attestations Time Spent in Discharge Care*: greater than 30 min Quality Metrics Clinical Quality Measures [ No reported AMI, CVA or VTE this stay] Coding Level of Care Code Acute Code for Chg Fwannie
[2023-07-04] MEDS: carvedilol 6.25 mg Tablet PO (11:14)
[2023-07-04 11:22] LABS: Glucose Point of Care 241 mg/dL (70-110)
[2023-07-04 12:55] LABS: Glucose Point of Care 273 mg/dL (70-110)
--- NOTE | 2023-07-04 13:46 | PC.NURSE ---
Discharge: Pt stated he could not make his follow-up at 1330, he had another appt in [place]. Contacted Dr Jimenez's office, follow-up now changed to 1545. Medications changed and stopped thoroughly reviewed with patient and family. Medications already taken today reviewed with patent and family. Both verbalized understanding. Care noted on diabetic diet, hypoglycemia, etc provided and partially discussed per patient's request. Also discussed being sick and taking diabetic medication, checking blood sugars more often, wicho. at bedtime necessary when ill, and not eating well. Pt instructed to take blood sugars in am and bedtime and provide that information to PCP at follow-up.
== END 2023-07-04 13:40 | disposition home or self-care (01) | DRG 637 ==
LOC: ER 15:42 → ICU 17:15
PROVIDERS: Admitting Provider Internal Medicine; Emergency Provider Emergency Medicine; PCP Family Medicine; Visit Provider Internal Medicine
DX: E11.649 Type 2 diabetes mellitus with hypoglycemia without coma (principal); G93.41 Metabolic encephalopathy; Z79.84 Long term (current) use of oral hypoglycemic drugs; A08.4 Viral intestinal infection, unspecified; F17.210 Nicotine dependence, cigarettes, uncomplicated; E03.8 Other specified hypothyroidism; Z79.02 Long term (current) use of antithrombotics/antiplatelets; Z79.82 Long term (current) use of aspirin; I25.10 Atherosclerotic heart disease of native coronary artery without angina pectoris; I10 Essential (primary) hypertension
CPT/HCPCS: 36415; 36416; 71045; 80048; 80053; 81001; 82962; 83036; 83735; 84100; 84443; 85025; 93005; 96360; 96372; 96374; 96376; 99285; J1100; J1170; J1650; J1815; J2270; J7799

== ENCOUNTER → 2023-12-18 10:28 | Outpatient (BNVA) | payer MEDICARE, OTHER, SELFPAY | PROVIDERS: PCP Family Medicine; Visit Provider Internal Medicine Cardiovascular Disease | DX: R07.9 Chest pain, unspecified (principal); R00.1 Bradycardia, unspecified; I49.8 Other specified cardiac arrhythmias | CPT/HCPCS: 93005; 99214 ==

== ENCOUNTER 2024-06-28 11:39 | Inpatient (IN) | payer MEDICARE, OTHER, SELFPAY ==
[2024-06-28 12:02] VITALS: BP 157/73; PULSE 87; TEMP 36.6; O2SAT 96; BMI 23.1
[2024-06-28 12:48] LABS: Hematocrit 52.3 % (37-53); Mean Corpuscular HGB Conc 33.8 g/dL (30-55); Mean Corpuscular Hemoglobin 33.3 pg (27-33); Mean Corpuscular Volume 98.3 fl (82-101); Mean Platelet Volume 9.2 fL (7.4-10.4); Platelet Count 397 10^3/cmm (157-399); Red Blood Count 5.32 10^6/uL (3.85-5.65); Red Cell Distribution Width 13.2 % (12.1-15.1); White Blood Count 7.71 10^3/uL (3.29-11.43)
[2024-06-28 13:10] LABS: Alanine Aminotransferase 50 U/L (0-41); Albumin Level 4.1 g/dL (3.5-5.2); Alkaline Phosphatase 71 U/L (40-130); Anion Gap 20.1 (5-19); Aspartate Amino Transferase 38 U/L (0-40); Blood Urea Nitrogen 39 mg/dL (8-23); Calcium 10.2 mg/dL (8.5-10.5); Carbon Dioxide 26 mmol/L (22-29); Chloride 92 mmol/L (98-107); Creatinine Clr Calc Pharmacy 57.0442; Globulin 3.7 g/dL (1.3-4.6); Glucose 256 mg/dL (65-115); Lipase 71 U/L (13-60); Osmolality Calculated 296 mOsm/kg (285-295); Potassium 4.1 mmol/L (3.5-5.1); Sodium 134 mmol/L (136-145); Total Bilirubin 0.7 mg/dL (0.15-1.2); Total Protein 7.8 g/dL (6.6-8.7)
[2024-06-28 13:28] LABS: Absolute Neutrophil 5.5 10^3/cmm (1.4-6.5); Absolute Segmented Neutrophil 1.5 10/cmm (1.6-7.1); Eosinophils 0 %; Lymphocytes 9 %; Lymphocytes Absolute 0.7 10^3/cmm (1.2-3.4); Monocytes Absolute 1.2 10^3/cmm (0.1-0.6); Platelet Estimate Normal (Normal); Segmented Neutrophils 19 %; Slide Review Slide Review Perform; Total Cells Counted 100 (0-100)
--- NOTE | 2024-06-28 17:09 | CTR_ITS ---
PROCEDURE INFORMATION: Exam: CT Abdomen And Pelvis Without Contrast Exam date and time: 06/28/2024 5:27 PM Age: 73 years old Clinical indication: Abdominal pain; Epigastric; Prior surgery; Surgery date: 6+ months; Surgery type: Spleen, gb, appy TECHNIQUE: Imaging protocol: Computed tomography of the abdomen and pelvis without contrast. Radiation optimization: All CT scans at this facility use at least one of these dose optimization techniques: automated exposure control; mA and/or kV adjustment per patient size (includes targeted exams where dose is matched to clinical indication); or iterative reconstruction. COMPARISON: CT pelvis wo/w con [id number] 11/05/2017 10:37 AM RADIATION DOSE METRICS: Total DLP (mGy-cm): 609.07 FINDINGS: Lungs: Lung bases are clear. No pleural effusion. Liver: Normal. No mass. Gallbladder and biliary ducts: The gallbladder has been resected. Pancreas: Normal. No ductal dilation. Spleen: Normal. No splenomegaly. Adrenal glands: Normal. No mass. Kidneys and ureters: Normal. No hydronephrosis. Stomach and bowel: There is prominent distension involving the stomach the proximal portion of the small bowel. The ileum is decompressed as is the colon. Appendix: No evidence of appendicitis. Intraperitoneal space: Unremarkable. No free air. No significant fluid collection. Vasculature: Unremarkable. No abdominal aortic aneurysm. Lymph nodes: Unremarkable. No enlarged lymph nodes. Urinary bladder: Unremarkable as visualized. Reproductive: Unremarkable as visualized. Bones/joints: Unremarkable. No acute fracture. Soft tissues: Unremarkable. CT/CT abdomen pelvis wo con [id number] IMPRESSION: Mechanical small bowel obstruction of uncertain etiology
--- NOTE | 2024-06-28 17:25 | W.ED.ABDPA2 ---
HPI - Abdominal Pain General: Chief Complaint: Abdominal Pain Stated Complaint: dr david abd pain Time Seen by Provider: 06/28/24 17:05 History of Present Illness: 73-year-old male presents with abdominal pain has been going on for couple days. He reports he is got some nausea a bit of vomiting. He feels like his belly is mildly distended. Associated Symptoms: Reports nausea and vomiting; Denies chills and fever(s) Related Data Home Medications ?Medication ?Instructions ?Recorded ?Confirmed aspirin 81 mg tablet,delayed 81 mg PO QAM 07/26/19 07/03/23 release (Adult Low Dose Aspirin) meloxicam 15 mg tablet 15 mg PO QAM 07/26/19 07/03/23 multivitamin 1 tab PO M 07/26/19 07/03/23 citalopram 40 mg tablet 40 mg PO M 09/19/21 07/03/23 fluticasone propionate 50 2 spray intranasal DAILY 09/19/21 07/03/23 mcg/actuation nasal spray,suspension clopidogrel 75 mg tablet 75 mg PO [facility] 08/06/22 07/03/23 albuterol sulfate 2.5 mg/3 mL 2.5 mg inhalation Q4H PRN 07/03/23 07/03/23 (0.083 %) solution for nebulization Shortness Of Breath Or Wheezing carvedilol 6.25 mg tablet 6.25 mg PO BID 07/03/23 07/03/23 olmesartan 40 mg tablet 40 mg PO DAILY 07/03/23 07/03/23 topiramate 25 mg tablet 75 mg PO BID 07/03/23 07/03/23 levothyroxine 150 mcg tablet 125 mcg PO DAILY 12/18/23 Previous Rx's ?Medication ?Instructions ?Recorded nitroglycerin 0.4 mg sublingual 0.4 mg sublingual Q5M PRN chest 08/18/20 tablet (Nitrostat) pain #25 tabs metformin 500 mg tablet,extended 500 mg PO DAILY #30 tabs 07/04/23 release 24 hr isosorbide mononitrate 60 mg See Rx Instructions .Route 08/27/23 tablet,extended release 24 hr .COMPLEX #90 tabs amlodipine 5 mg tablet See Rx Instructions .Route 12/09/23 .COMPLEX #90 tabs rosuvastatin 20 mg tablet See Rx Instructions .Route 12/09/23 .COMPLEX #90 tabs furosemide 40 mg tablet 40 mg PO DAILY #90 tabs 03/08/24 potassium chloride 20 mEq See Rx Instructions .Route 05/03/24 tablet,extended release(part/cryst) .COMPLEX #90 tabs Allergies Allergy/AdvReac Type Severity Reaction Status Date / Time codeine Allergy Unknown Unknown Verified 06/28/24 12:06 Review of Systems Const: Denies: fever(s) or chills Card: Denies: chest pain or palpitations Resp: Denies: dyspnea or productive cough GI: Reports: abdominal pain, nausea and vomiting PFS ED PFSH: Medical History Metabolic encephalopathy Hypoglycemia Secondary hypothyroidism Status post treatment for Graves' disease Graves disease Status post radioactive iodine treatment now with hypothyroidism History of cerebral angiography 09/2021 at [facility] - mild plaque in bilateral carotids at carotid bulb (20-25%), at level of skull base, 70% concentric stenosis, high grade 90-95% stenosis at V4 segment of PICA COPD (chronic obstructive pulmonary disease) Diabetes mellitus, type II Abnormal cardiovascular stress test (08/2021) CAD (coronary artery disease) HTN (hypertension) Hyperlipidemia Surgical History History of cardiac catheterization ~2005 LAD and RCA stents placed; 2016 patent RCA and LAD stents; 09/2021 LAD stent patent, 90% 1st diagonal, patent circ and OM, RCA with 95% in-stent restenosis treated with balloon angioplasty; 07/2022 proximal RCA with 99% in-stent restenosis treated with balloon angioplasty and stent, proximal LAD 40% with YEHUDA 3 flow, prior LAD stent patent, no significant LM disease, Circ with luminal irregularities S/P appendectomy S/P splenectomy S/P cholecystectomy (2018) Status post incision and drainage (2018) gluteal/perineal abscess S/P PTCA (percutaneous transluminal coronary angioplasty) 2005, 2021, 07/2022 Family History Father CAD (coronary artery disease) Diabetes Myocardial infarction Grandfather CAD (coronary artery disease) Cancer Diabetes Family/Other CAD (coronary artery disease) at 50 Cancer Chronic kidney disease (CKD) Diabetes Lung disease Mother Cancer Lung disease Denies family history of Clotting disorder Dementia Suicide Anesthesia complication Bleeding disorder Stroke Social History Smoking and tobacco/nicotine status: current every day tobacco/nicotine user cigarettes Packs smoked per day: 1 Alcohol intake: current Alcohol intake frequency: few times a week Alcohol type: beer Substance/Drug Use: former Physical Exam Const: COMMON NORMALS: no acute distress, patient oriented x3 and alert Resp: COMMON NORMALS: normal respiratory effort and clear to auscultation bilaterally AUSCULTATION: clear to auscultation bilaterally Cardio: COMMON NORMALS: regular rate and regular rhythm RATE: regular rate RHYTHM: regular rhythm GI: COMMON NORMALS: Soft to palpation INSPECTION: Yes abdominal distension PALPATION: Yes Soft to palpation and Yes Tenderness to palpation present (GI) (Mildly diffuse) Neuro: COMMON NORMALS: patient oriented x3 and moves all extremities SENSORIUM/ORIENTATION: Yes alert Psych: COMMON NORMALS: Normal thought process present, cooperative and normal affect THOUGHT PROCESS: Normal thought process present Skin: COMMON NORMALS: no rashes or lesions noted and turgor normal GENERAL SKIN EXAM: no rashes or lesions noted and turgor normal Course Vital Signs: Vital signs: Vital Signs Temperature 97.9 F 06/28/24 12:02 Pulse Rate 81 06/28/24 18:48 Blood Pressure 159/80 06/28/24 18:48 Pulse Oximetry 95 06/28/24 18:48 Oxygen Delivery Me thod Room Air 06/28/24 12:02 MDM - Abdominal Pain Medical Decision Making Patient's diagnostic studies are reviewed and interpreted by me. He does have a slight elevation of his BUN and creatinine. Patient has no white count. He is mildly hemoconcentrated with hematocrit of 17.7 and sodium of 134. I did obtain a CT abdomen and pelvis which shows a mechanical bowel obstruction. Called and discussed with the general surgeon on-call Dr. Hough as well as hospitalist Dr. Nelson. Patient will be admitted to Dr. Nelson with general surgery consulting. Patient was transferred to the floor in stable condition. Lab Data 06/28/24 12:19 06/28/24 12:19 Labs/Radiology: Radiology Impressions Abdomen/Pelvis CT 06/28/24 17:09 IMPRESSION: Mechanical small bowel obstruction of uncertain etiology ADDENDUM: 06/28/24 1811 COMMENT: THIS REPORT CONTAINS FINDINGS THAT MAY BE CRITICAL TO PATIENT CARE. The exam findings were verbally communicated by me to DRAKE REILLY via telephone conference at 6:09 PM CDT on 06/28/2024. The findings were acknowledged and understood. Laboratory Results WBC 7.71 10^3/uL (3.29-11.43) 06/28/24 12:19 RBC 5.32 10^6/uL (3.85-5.65) 06/28/24 12:19 Hgb 17.70 g/dL (11.27-16.99) H 06/28/24 12:19 Hct 52.3 % (37-53) 06/28/24 12:19 MCV 98.3 fl (82-101) 06/28/24 12:19 MCH 33.3 pg (27-33) H 06/28/24 12:19 MCHC 33.8 g/dL (30-55) 06/28/24 12:19 RDW 13.2 % (12.1-15.1) 06/28/24 12:19 Plt Count 397 10^3/cmm (157-399) 06/28/24 12:19 MPV 9.2 fL (7.4-10.4) 06/28/24 12:19 Lymph % (Auto) Not Reportable 06/28/24 12:19 [place] % (Auto) Not Reportable 06/28/24 12:19 Lymph # (Auto) Not Reportable 06/28/24 12:19 [place] # (Auto) Not Reportable 06/28/24 12:19 Total Counted 100 (0-100) 06/28/24 12:19 Atypical Lymphs % 0.0 % (0-5) 06/28/24 12:19 Absolute Neutrophils 5.5 10^3/cmm (1.4-6.5) 06/28/24 12:19 Segmented Neutrophils 19 % 06/28/24 12:19 Band Neutrophils 52.0 % 06/28/24 12:19 Absolute Lymphocytes 0.7 10^3/cmm (1.2-3.4) L 06/28/24 12:19 Lymphocytes (Manual) 9 % 06/28/24 12:19 Monocytes (Manual) 16.0 % 06/28/24 12:19 Absolute Monocytes 1.2 10^3/cmm (0.1-0.6) H 06/28/24 12:19 Eosinophils (Manual) 0 % 06/28/24 12:19 Absolute Eosinophils 0.0 10^3/cmm (0.0-0.7) 06/28/24 12:19 Basophils (Manual) 0.0 % 06/28/24 12:19 Absolute Basophils 0.0 10^3/cmm (0.0-0.2) 06/28/24 12:19 Metamyelocytes 4.0 % 06/28/24 12:19 Platelet Estimate Normal (Normal) 06/28/24 12:19 Sodium 134 mmol/L (136-145) L 06/28/24 12:19 Potassium 4.1 mmol/L (3.5-5.1) 06/28/24 12:19 Chloride 92 mmol/L (98-107) L 06/28/24 12:19 Carbon Dioxide 26 mmol/L (22-29) 06/28/24 12:19 Anion Gap 20.1 (5-19) H 06/28/24 12:19 BUN 39 mg/dL (8-23) H 06/28/24 12:19 Creatinine 1.3 mg/dL (0.7-1.2) H 06/28/24 12:19 GFR Calculation Not Reportable 06/28/24 12:19 Glucose 256 mg/dL (65-115) H 06/28/24 12:19 Calculated Osmolality 296 mOsm/kg (285-295) H 06/28/24 12:19 Calcium 10.2 mg/dL (8.5-10.5) 06/28/24 12:19 Total Bilirubin 0.7 mg/dL (0.15-1.2) 06/28/24 12:19 AST 38 U/L (0-40) 06/28/24 12:19 ALT 50 U/L (0-41) H 06/28/24 12:19 Alkaline Phosphatase 71 U/L (40-130) 06/28/24 12:19 Total Protein 7.8 g/dL (6.6-8.7) 06/28/24 12:19 Albumin 4.1 g/dL (3.5-5.2) 06/28/24 12:19 Globulin 3.7 g/dL (1.3-4.6) 06/28/24 12:19 Lipase 71 U/L (13-60) H 06/28/24 12:19 Urine Color Yellow (Yellow) 06/28/24 18:10 Urine Appearance Clear (CLEAR) 06/28/24 18:10 Urine pH 5.5 (5-7) 06/28/24 18:10 Ur Specific [place] 1.028 (1.005-1.030) 06/28/24 18:10 Urine Protein 1+ (Negative) A 06/28/24 18:10 Urine Glucose (UA) 3+ (Normal) H 06/28/24 18:10 Urine Ketones 1+ (Negative) H 06/28/24 18:10 Urine Blood Negative (Negative) 06/28/24 18:10 Urine Nitrate Negative (Negative) 06/28/24 18:10 Urine Bilirubin Negative (Negative) 06/28/24 18:10 Urine Urobilinogen 0.2 mg/dL (Negative) 06/28/24 18:10 Ur Leukocyte Esterase Negative (Negative) 06/28/24 18:10 Urine RBC 0-2 /hpf (0-2) 06/28/24 18:10 Urine WBC 0-5 /hpf (0-5) 06/28/24 18:10 Ur Squamous Epith Cells 0-5 /hpf (0-5) 06/28/24 18:10 Amorphous Sediment Not Reportable 06/28/24 18:10 Urine Bacteria None seen /hpf (NONE) 06/28/24 18:10 Hyaline Casts 8.26 /lpf 06/28/24 18:10 All radiology interpretation(s) finalized by discharge Discharge Plan Discharge Patient Disposition: Admitted As Inpatient Admit Provider: Sukhi Nelson Clinical Impression: Small bowel obstruction Condition: Stable Coding Level of Care Code ED Heel Breaster for Armando Kay
[2024-06-28] MEDS: ondansetron 2 mg/ML SDV 2 mL 4 MG IVP (17:52)
[2024-06-28] MEDS: sodium chloride 0.9% 500 ML IV (17:52)
[2024-06-28 18:22] VITALS: PULSE 81; O2SAT 95
[2024-06-28 18:22] LABS: Bilirubin Urine Negative (Negative); Blood Urine Negative (Negative); Glucose Urine UA 3+ (Normal); Ketones Urine 1+ (Negative); Leukocyte Esterase Urine Negative (Negative); Nitrate Urine Negative (Negative); Protein Urine 1+ (Negative); Specific Gravity, Urine 1.028 (1.005-1.030); Urine Appearance Clear (CLEAR); Urine Color Yellow (Yellow); Urobilinogen Urine 0.2 mg/dL (Negative); pH Urine 5.5 (5-7)
[2024-06-28 18:25] LABS: Add Urine Microscopic? YES; Bacteria Urine None Seen /hpf; Hyaline Casts Urine 8.26 /lpf; RBC Urine 0-2 /hpf (0-2); Squamous Epithelial Cell Urine 0-5 /hpf (0-5); WBC Urine 0-5 /hpf (0-5)
[2024-06-28 18:46] LABS: Add Urine Culture? No; UA Slide Review UA Slide Review Perf
[2024-06-28 18:48] VITALS: BP 159/80; PULSE 81; O2SAT 95
[2024-06-28 19:29] VITALS: BMI 23.1
--- NOTE | 2024-06-28 19:29 | PM.CONSULT ---
Providers/Reason For Consult Consulting Physician/Specialty*: General Surgery Reason for Consult*: Small bowel obstruction Attending Physician: Sukhi Nelson MD Primary Care Provider: Aaron Hay DO History of Present Illness History of Present Illness Connor Jennings is a 73 year old male With history of multiple intra-abdominal surgeries including exploratory laparotomy with a splenectomy for trauma, appendectomy, cholecystectomy. Patient shows symptoms concerning for small bowel obstruction including abdominal distention abdominal pain and tenderness nausea and vomit. Last bowel movement was today. CT scan in the ER shows small bowel obstruction with that mechanical transition at the level of the terminal ileum, no signs of bowel ischemia. Review of Systems General: Reports: 10 or more systems reviewed and unremarkable except in HPI and below Medications/Allergies Home Medications ?Medication ?Instructions ?Recorded ?Confirmed ?Last Taken ?Type aspirin 81 mg tablet,delayed 81 mg PO QAM 07/26/19 07/03/23 07/03/23 History release (Adult Low Dose Aspirin) meloxicam 15 mg tablet 15 mg PO QAM 07/26/19 07/03/23 07/03/23 History multivitamin 1 tab PO QAM 07/26/19 07/03/23 07/03/23 History nitroglycerin 0.4 mg sublingual 0.4 mg sublingual Q5M PRN chest 08/18/20 07/03/23 08/06/22 Rx tablet (Nitrostat) pain #25 tabs citalopram 40 mg tablet 40 mg PO QAM 09/19/21 07/03/23 07/03/23 History fluticasone propionate 50 2 spray intranasal DAILY 09/19/21 07/03/23 07/03/23 History mcg/actuation nasal spray,suspension clopidogrel 75 mg tablet 75 mg PO QAM 08/06/22 07/03/23 07/03/23 History albuterol sulfate 2.5 mg/3 mL 2.5 mg inhalation Q4H PRN 07/03/23 07/03/23 Unknown History (0.083 %) solution for nebulization Shortness Of Breath Or Wheezing carvedilol 6.25 mg tablet 6.25 mg PO BID 07/03/23 07/03/23 07/03/23 History olmesartan 40 mg tablet 40 mg PO DAILY 07/03/23 07/03/23 07/03/23 History topiramate 25 mg tablet 75 mg PO BID 07/03/23 07/03/23 07/03/23 History metformin 500 mg tablet,extended 500 mg PO DAILY #30 tabs 07/04/23 07/03/23 07/03/23 Rx release 24 hr isosorbide mononitrate 60 mg See Rx Instructions .Route 08/27/23 Unknown Rx tablet,extended release 24 hr .COMPLEX #90 tabs amlodipine 5 mg tablet See Rx Instructions .Route 12/09/23 Unknown Rx .COMPLEX #90 tabs rosuvastatin 20 mg tablet See Rx Instructions .Route 12/09/23 Unknown Rx .COMPLEX #90 tabs levothyroxine 150 mcg tablet 125 mcg PO DAILY 12/18/23 Unknown History furosemide 40 mg tablet 40 mg PO DAILY #90 tabs 03/08/24 Unknown Rx potassium chloride 20 mEq See Rx Instructions .Route 05/03/24 Unknown Rx tablet,extended release(part/cryst) .COMPLEX #90 tabs Allergies Allergy/AdvReac Type Severity Reaction Status Date / Time codeine Allergy Unknown Unknown Verified 06/28/24 12:06 PFSH Acute PFSH: Medical History Metabolic encephalopathy Hypoglycemia Secondary hypothyroidism Status post treatment for Graves' disease Graves disease Status post radioactive iodine treatment now with hypothyroidism History of cerebral angiography 09/2021 at [facility] - mild plaque in bilateral carotids at carotid bulb (20-25%), at level of skull base, 70% concentric stenosis, high grade 90-95% stenosis at V4 segment of PICA COPD (chronic obstructive pulmonary disease) Diabetes mellitus, type II Abnormal cardiovascular stress test (08/2021) CAD (coronary artery disease) HTN (hypertension) Hyperlipidemia Surgical History History of cardiac catheterization ~2005 LAD and RCA stents placed; 2017 patent RCA and LAD stents; 09/2021 LAD stent patent, 90% 1st diagonal, patent circ and OM, RCA with 95% in-stent restenosis treated with balloon angioplasty; 07/2022 proximal RCA with 99% in-stent restenosis treated with balloon angioplasty and stent, proximal LAD 40% with YEHUDA 3 flow, prior LAD stent patent, no significant LM disease, Circ with luminal irregularities S/P appendectomy S/P splenectomy S/P cholecystectomy (2018) Status post incision and drainage (2018) gluteal/perineal abscess S/P PTCA (percutaneous transluminal coronary angioplasty) 2005, 2021, 07/2022 Family History Father CAD (coronary artery disease) Diabetes Myocardial infarction Grandfather CAD (coronary artery disease) Cancer Diabetes Family/Other CAD (coronary artery disease) at 50 Cancer Chronic kidney disease (CKD) Diabetes Lung disease Mother Cancer Lung disease Denies family history of Clotting disorder Dementia Suicide Anesthesia complication Bleeding disorder Stroke Social History Smoking and tobacco/nicotine status: current every day tobacco/nicotine user cigarettes Packs smoked per day: 1 Alcohol intake: current Alcohol intake frequency: few times a week Alcohol type: beer Substance/Drug Use: former Vitals/I&O/Wt Last Vital Signs Temp 97.9 F 06/28/24 12:02 Pulse 81 06/28/24 18:48 BP 159/80 06/28/24 18:48 Pulse Ox 95 06/28/24 18:48 O2 Del Method Room Air 06/28/24 12:02 Weight last 48 hrs Weight 175 lb Physical Exam GI: OTHER: Abdomen is distended, soft, minimally tender, bowel sounds are Significantly decreased Data 06/28/24 12:19 06/28/24 12:19 A&P Assessment and plan (1) Small bowel obstruction: Plan After complete history, physical examination and review of all available clinical data the following is my assessment. This a 73-year-old male presenting with a small bowel obstruction, likely due to adhesions from previous intra-abdominal surgeries. We will proceed with conservative management with NG tube decompression for the next 24 to 48 hours and after that I will do a Gastrografin trial to evaluate progression. Extensive discussion with the patient regarding the possibility of surgery if the Gastrografin trial is negative I have informed him that this will be the last resort as it may be a high risk procedure Due to multiple previous intra-abdominal surgeries. As well as his age and multiple comorbidities. In the interim he work on a hold anticoagulation in anticipation of the need of surgery in the future. I appreciate all additional management per primary team, general surgery will continue to follow on a daily basis. Of note, NG tube was placed at the bedside about 700 cc of bilious material was immediately obtained. PDMP PDMP Reviewed: Not Reviewed Coding Level of Care Code Acute Code for Chg Fwd Diagnoses Small bowel obstruction K56.609
--- NOTE | 2024-06-28 19:33 | XRR_ITS ---
PROCEDURE INFORMATION: Exam: XR Chest Exam date and time: 06/28/2024 7:56 PM Age: 73 years old Clinical indication: Device placement; Ng tube; Additional info: Ng tube placement TECHNIQUE: Imaging protocol: Radiologic exam of the chest. Views: 1 view. COMPARISON: CR XR chest 1V portable [id number] 07/03/2023 3:40 PM FINDINGS: Tubes, catheters and devices: The feeding tube is in good position within the stomach. Lungs: Unremarkable. No consolidation or mass. Pleural spaces: Unremarkable. No pleural effusion. No pneumothorax. Heart/Mediastinum: Unremarkable. No cardiomegaly. Bones/joints: Unremarkable. XR/XR chest 1V portable [id number] IMPRESSION: Good enteric feeding tube positioning
[2024-06-28 23:59] VITALS: BP 131/52; PULSE 80; RESP 23; TEMP 36.9; O2SAT 91
[2024-06-29] MEDS: famotidine 20 mg/2 mL INJ IVP ×3 (00:43→21:06)
[2024-06-29] MEDS: enoxaparin 40 mg/0.4 mL Syringe SUBCUT ×2 (00:44→21:06)
[2024-06-29] MEDS: sodium chlor 0.9% + KCl 20 mEq 20 MEQ/1,000 ML BAG 150 MEQ IV ×4 (00:44→21:03)
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
[2024-06-29 04:00] VITALS: BP 170/85; PULSE 80; RESP 22; TEMP 37; O2SAT 92
[2024-06-29 05:34] LABS: Basophils # 0.1 10^3/uL (0.0-0.1); Basophils % 0.6 %; Eosinophils % 0.1 %; Hematocrit 48.7 % (37-53); Lymphocytes # 0.4 10^3/uL (0.8-4.8); Lymphocytes % 4.4 %; Mean Corpuscular HGB Conc 35.3 g/dL (30-55); Mean Corpuscular Hemoglobin 34.3 pg (27-33); Mean Platelet Volume 9.5 fL (7.4-10.4); Monocytes # 2.3 10^3/uL (0.2-0.9); Monocytes % 23.2 %; Neutrophils # 6.96 10^3/uL (1.8-7.7); Neutrophils % 71.3 %; Nucleated Red Blood Cells % 0 %; Platelet Count 369 10^3/cmm (157-399); Red Blood Count 5.02 10^6/uL (3.85-5.65); Red Cell Distribution Width 13.2 % (12.1-15.1); White Blood Count 9.77 10^3/uL (3.29-11.43)
[2024-06-29 05:57] LABS: Alanine Aminotransferase 42 U/L (0-41); Albumin Level 3.7 g/dL (3.5-5.2); Alkaline Phosphatase 61 U/L (40-130); Anion Gap 16.4 (5-19); Aspartate Amino Transferase 21 U/L (0-40); Blood Urea Nitrogen 56 mg/dL (8-23); Calcium 9.5 mg/dL (8.5-10.5); Carbon Dioxide 27 mmol/L (22-29); Chloride 92 mmol/L (98-107); Creatinine Clr Calc Pharmacy 56.1609; Globulin 3.2 g/dL (1.3-4.6); Glucose 194 mg/dL (65-115); Magnesium 2.2 mg/dL (1.7-2.3); Osmolality Calculated 295 mOsm/kg (285-295); Phosphorus 3.6 mg/dL (2.5-4.5); Potassium 3.4 mmol/L (3.5-5.1); Sodium 132 mmol/L (136-145); Total Bilirubin 0.5 mg/dL (0.15-1.2); Total Protein 6.9 g/dL (6.6-8.7)
[2024-06-29 06:48] LABS: Slide Review Slide Review Perform
--- NOTE | 2024-06-29 07:49 | P.PN_ITS ---
Subjective 2 Subjective: 73-year-old male who presented to the [facility] with a small bowel obstruction. Overnight he has been doing okay, no significant abdominal pain, endorses passing some gas although his NG output was strongly high 2.5 L since admission and 500 cc over the last 6 hours. Vitals/I&O/Wt Last Vital Signs Temp 98.6 F 06/29/24 04:00 Pulse 80 06/29/24 04:00 Resp 22 H 06/29/24 04:00 BP 170/85 06/29/24 04:00 Pulse Ox 92 06/29/24 04:00 O2 Del Method Room Air 06/29/24 04:00 06/28/24 06/29/24 06/29/24 22:59 06:59 14:59 Intake Total 600 / 600 100 / 700 Output Total 2200 / 2200 Balance 600 / 600 -2100 / -1500 Weight last 48 hrs Weight 168 lb 3.2 oz Weight 175 lb Weight 175 lb Physical Exam 2 GI: OTHER: Abdomen is still distended, minimal tenderness, bowel sounds Improved but still decreased. Data 06/29/24 04:50 06/29/24 04:50 A&P Assessment and plan (1) Small bowel obstruction: Plan Patient is showing adequate progression after of a small bowel obstruction. NG output is high we will continue decompression for another 24 hours before proceeding with a Gastrografin trial. I have encouraged patient to ambulate today he can be unhooked from the suction to walk and could back once he comes back to bed. Appreciate additional management per medical team. PDMP PDMP Reviewed: Not Reviewed Attestations 2 Medical Necessity Statement*: Per medical team Coding Level of Care Code Acute Code for Chg Fwd Diagnoses Small bowel obstruction K56.609
[2024-06-29 08:00] VITALS: BP 171/71; PULSE 74; RESP 21; TEMP 36.7; O2SAT 90
--- NOTE | 2024-06-29 08:42 | PC.PHAR ---
Pt stopped Citalopram 40 mg and started Fluvoxamine 50mg.
--- NOTE | 2024-06-29 10:16 | PC.CHAP ---
Pastoral Care Encounter/Spiritual Assessment Type of Contact [] Declined yarn man visit [] Patient/Family/Request visit [] Outpatient visit [] Follow-up visit [] Physician referral [] Code/Alert [] Routine visit [] Staff referral [] Actively dying [x] Patient sleeping [] Family support [] [] Out of room [] Palliative care [] [] Receiving care in room [] Pre-surgical visit [] Trauma [] Long length of stay [] ICU visit [] Other: Relational/Emotional Strength [] Patient feels connected with others/family/visitors/staff [] Distress [] Loneliness/isolation [] Abandonment Spirituality of Patient [] Person of Diane [] Attends Muslim of their Diane [] Believes in Prayer [] Reads Bible or Amish materials [] There are Spiritual issues to be addressed Stationary Engineer Apprentice Interventions [] Prayer [] Active listening [] Non-anxious presence [] Spiritual/emotional support [] Crisis/trauma care [] Spiritual counseling [] Bereavement support [] Provided bereavement packet [] Provided Bible/devotional materials [] Provided toy/stuffed animal, coloring book to patient or family member [] Provided Communion [] Anointing/[place] [] Salvation [] Completed spiritual assessment [] Other: Impact on Illness or Injury [] Angry [] Fearful [] Anxious [] Often cries [] Exhaustion [] Unable to work [] Unable to attend pentecostal [] Unable to walk/stand [] Unable to read [] Unable to drive [] Unable to eat/drink [] Unable to sleep [] Unable to be with family [] Patient intubated [] Other: Summary Time spent with patient
[2024-06-29 12:00] VITALS: BP 159/86; PULSE 76; RESP 17; TEMP 36.8; O2SAT 91
--- NOTE | 2024-06-29 13:16 | PM.MISC ---
Miscellaneous Note Purpose of Documentation: Update on patient care Note: Slight improvement in abdominal distention. Output from the NG tube for the morning has been 250 cc over the last 6 hours. Plan continues to maintain decompression and tomorrow morning proceed Gastrografin trial. I did have extensive discussion regarding possible need for surgery and patient is agreeable to proceed in the case of surgery being needed.
--- NOTE | 2024-06-29 14:13 | PM.MISC ---
Miscellaneous Note Note: Seen this morning. Continue management as per assessment and plan. Patient evaluated by general surgery this morning.appreciate recommendations.
--- NOTE | 2024-06-29 15:19 | PC.NURSE ---
report phoned to [facility] on med surg unit.pt transferred to room 270 via w/c at this time.350 cc fabienne carroll emptied from ngt and charted
[2024-06-29 16:00] VITALS: BP 161/75; PULSE 74; RESP 16; TEMP 36.8; O2SAT 92
[2024-06-29 20:00] VITALS: BP 184/71; PULSE 74; RESP 18; TEMP 36.8; O2SAT 93
[2024-06-29] MEDS: trazodone 50 mg Tablet PO (21:12)
[2024-06-29 23:36] VITALS: BP 148/69; PULSE 72; RESP 18; TEMP 37.4; O2SAT 93
[2024-06-30] MEDS: sodium chlor 0.9% + KCl 20 mEq 20 MEQ/1,000 ML BAG 150 MEQ IV ×3 (03:34→19:49)
[2024-06-30 04:00] VITALS: BP 159/72; PULSE 73; RESP 17; TEMP 36.5; O2SAT 93
[2024-06-30 05:33] LABS: Basophils # 0.1 10^3/uL (0.0-0.1); Basophils % 0.4 %; Eosinophils % 0.3 %; Hematocrit 49.4 % (37-53); Lymphocytes # 0.7 10^3/uL (0.8-4.8); Lymphocytes % 5.2 %; Mean Corpuscular HGB Conc 33.4 g/dL (30-55); Mean Corpuscular Hemoglobin 33.6 pg (27-33); Mean Corpuscular Volume 100.6 fl (82-101); Mean Platelet Volume 9.6 fL (7.4-10.4); Monocytes # 2.6 10^3/uL (0.2-0.9); Monocytes % 19.2 %; Neutrophils # 10.11 10^3/uL (1.8-7.7); Neutrophils % 74.4 %; Nucleated Red Blood Cells % 0 %; Platelet Count 344 10^3/cmm (157-399); Red Blood Count 4.91 10^6/uL (3.85-5.65); Red Cell Distribution Width 13.4 % (12.1-15.1); White Blood Count 13.57 10^3/uL (3.29-11.43)
[2024-06-30 05:55] LABS: Alanine Aminotransferase 24 U/L (0-41); Albumin Level 3.2 g/dL (3.5-5.2); Alkaline Phosphatase 56 U/L (40-130); Anion Gap 13.6 (5-19); Aspartate Amino Transferase 13 U/L (0-40); Blood Urea Nitrogen 31 mg/dL (8-23); Calcium 8.2 mg/dL (8.5-10.5); Carbon Dioxide 23 mmol/L (22-29); Chloride 103 mmol/L (98-107); Globulin 2.7 g/dL (1.3-4.6); Glucose 76 mg/dL (65-115); Osmolality Calculated 287 mOsm/kg (285-295); Potassium 3.6 mmol/L (3.5-5.1); Sodium 136 mmol/L (136-145); Total Bilirubin 0.4 mg/dL (0.15-1.2); Total Protein 5.9 g/dL (6.6-8.7)
[2024-06-30 06:35] LABS: Lactate (Lactic Acid level) 0.6 mmol/L (0.5-2.2)
--- NOTE | 2024-06-30 06:40 | P.PN_ITS ---
Subjective 2 Subjective: Patient doing well overnight. Abdominal pain is slightly improved, he did have 1 bout of diarrhea but no significant gas. NG tube output has decreased it has been about 700 in the last 24 hours. Vitals/I&O/Wt Last Vital Signs Temp 97.7 F 06/30/24 04:00 Pulse 73 06/30/24 04:00 Resp 17 06/30/24 04:00 BP 159/72 06/30/24 04:00 Pulse Ox 93 06/30/24 04:00 O2 Del Method Room Air 06/30/24 04:00 06/29/24 06/29/24 06/30/24 14:59 22:59 06:59 Intake Total 1000 / 1000 1305 / 2305 977.5 / 3282.5 Output Total 350 / 350 350 / 700 Balance 650 / 650 955 / 1605 977.5 / 2582.5 Weight last 48 hrs Weight 174 lb 3.2 oz Weight 168 lb 3.2 oz Weight 175 lb Weight 175 lb Physical Exam 2 GI: OTHER: Abdomen is soft, mildly distended, minimally tender, there is bowel sounds. Data 06/30/24 04:05 06/30/24 04:05 A&P Assessment and plan (1) Small bowel obstruction: Plan Patient showing good progression so far. We will do a Gastrografin trial today, Gastrografin was administered at 6:30 AM and the tube was clamped patient will ambulate. Plan is to obtain for x-ray around 11 AM. I have discussed with the patient and he shows understanding agrees with the plan. Of note there has been a slight uptrend of the white blood count but all laboratory workup and vital signs otherwise remained stable PDMP PDMP Reviewed: Not Reviewed Attestations 2 Medical Necessity Statement*: Per medical team Coding Level of Care Code Acute Code for Chg Fwd Diagnoses Small bowel obstruction K56.609
[2024-06-30 07:14] VITALS: BP 175/68; PULSE 70; RESP 15; TEMP 36.6; O2SAT 92
[2024-06-30] MEDS: famotidine 20 mg/2 mL INJ IVP ×2 (09:25→21:01)
--- NOTE | 2024-06-30 11:02 | PC.SOCIAL ---
IMM Update Pg. 2 of IMM updated and reviewed with patient, who verbalized understanding. Copy provided at bedside.
--- NOTE | 2024-06-30 11:05 | XR_ITS ---
WS: [id number] XR abdomen 1V* [id number] REASON FOR EXAM: Gastrografin trial 4 hours FINDINGS: Previously administered Gastrografin has progressed to and through the colon with contrast in the rectum. The colon is not dilated. Multiple loops of moderately dilated small bowel are seen in the right and left abdomen. XR/XR abdomen 1V* [id number] IMPRESSION: Water-soluble contrast administered through the nasogastric tube has transited to and through the colon as above. Dilated small bowel persists.
--- NOTE | 2024-06-30 11:21 | P.PN_ITS ---
Subjective 2 Subjective: seen today no acute events overnight pt had passed flatus this am Vitals/I&O/Wt Last Vital Signs Temp 97.9 F 06/30/24 07:14 Pulse 70 06/30/24 07:14 Resp 15 06/30/24 07:14 BP 175/68 06/30/24 07:14 Pulse Ox 92 06/30/24 07:14 O2 Del Method Room Air 06/30/24 07:14 06/29/24 06/30/24 06/30/24 22:59 06:59 14:59 Intake Total 1305 / 2305 977.5 / 3282.5 Output Total 350 / 700 600 / 1300 Balance 955 / 1605 377.5 / 1982.5 Weight last 48 hrs Weight 79.016 kg Weight 76.294 kg Weight 79.379 kg Weight 79.379 kg Physical Exam 2 Narrative: NG tube clamped in place CV regular rate and rhythm Lungs clear to auscultation bilaterally Abdomen NG tube suction sounds distended tympanitic abdomen no edema b/l le Mood and affect normal Data 06/30/24 04:05 06/30/24 04:05 A&P Assessment and plan (1) Small bowel obstruction: Continue NG tube to low intermittent wall suction. Patient has been seen by Dr. Hough who will following evaluation for potential need for surgery. We are continuing with conservative care with NG tube for now due to high risk of recurrence with multiple abdominal surgeries (2) Carotid artery disease: Stable (3) Nicotine dependence, cigarettes, with other nicotine-induced disorders: Patient is a smoker 1 pack/day he declines nicotine patch (4) Atherosclerotic heart disease of [place] coronary artery with other forms of angina pectoris: Stable Plan 06/30/2024 plan for gastrograffin study today repeat KUB at 11 gen surg on board await recommendations add hydralazine 10 iv q4h as needed for SBP > 160 continue to hold aspirin plavix in case of surgery pt npo at this time, once clear from surgical standpoint to start diet, will order home medications PDMP PDMP Reviewed: Not Reviewed Attestations 2 Medical Necessity Statement*: Patient is in the hospital NG tube to low intermittent wall suction and anticipate that he will be here greater than 2 days Diagnoses Small bowel obstruction K56.609 Bilateral carotid artery disease, unspecified type I77.9 Carotid artery disease type: unspecified Laterality: bilateral Nicotine dependence, cigarettes, with other nicotine-induced disorders F17.218 Atherosclerotic heart disease of [place] coronary artery with other forms of angina pectoris I25.118
[2024-06-30 11:56] VITALS: BP 181/76; PULSE 73; RESP 16; TEMP 37.7; O2SAT 92
--- NOTE | 2024-06-30 12:37 | PM.MISC ---
Miscellaneous Note Purpose of Documentation: Update on patient care Note: Positive Gastrografin trial. patient has had several BMs and contrast is in the rectum. will D/C NG tube and start clear liquids.
[2024-06-30 15:38] VITALS: BP 198/82; PULSE 75; RESP 16; TEMP 37.1; O2SAT 95
[2024-06-30 19:34] VITALS: BP 202/73; PULSE 73; RESP 18; TEMP 36.6; O2SAT 96
[2024-06-30] MEDS: hyDRALAzine 20 mg/mL INJ 1 mL 10 MG IVP (19:48)
[2024-06-30] MEDS: trazodone 50 mg Tablet PO (21:01)
[2024-06-30] MEDS: enoxaparin 40 mg/0.4 mL Syringe SUBCUT (21:01)
[2024-07-01] VITALS (24 sets, daily range): BP systolic 148–211; BP diastolic 40–94; PULSE 16–108; RESP 15–26; TEMP 36.2–37; O2SAT 90–100
[2024-07-01] MEDS: sodium chlor 0.9% + KCl 20 mEq 20 MEQ/1,000 ML BAG 150 MEQ IV ×3 (03:13→22:08)
[2024-07-01] MEDS: hyDRALAzine 20 mg/mL INJ 1 mL 10 MG IVP ×4 (05:05→19:15)
[2024-07-01 05:40] LABS: Basophils % 0.2 %; Eosinophils % 0.2 %; Hematocrit 49.2 % (37-53); Lymphocytes # 0.9 10^3/uL (0.8-4.8); Lymphocytes % 5.4 %; Mean Corpuscular HGB Conc 33.1 g/dL (30-55); Mean Corpuscular Hemoglobin 33.8 pg (27-33); Mean Corpuscular Volume 102.1 fl (82-101); Mean Platelet Volume 9.5 fL (7.4-10.4); Monocytes # 2.6 10^3/uL (0.2-0.9); Monocytes % 15.3 %; Neutrophils # 13.11 10^3/uL (1.8-7.7); Neutrophils % 78.1 %; Nucleated Red Blood Cells % 0 %; Platelet Count 301 10^3/cmm (157-399); Red Blood Count 4.82 10^6/uL (3.85-5.65); Red Cell Distribution Width 13.4 % (12.1-15.1); White Blood Count 16.78 10^3/uL (3.29-11.43)
[2024-07-01 06:10] LABS: Alanine Aminotransferase 21 U/L (0-41); Alkaline Phosphatase 81 U/L (40-130); Blood Urea Nitrogen 13 mg/dL (8-23); Calcium 8.2 mg/dL (8.5-10.5); Carbon Dioxide 22 mmol/L (22-29); Chloride 105 mmol/L (98-107); Globulin 2.8 g/dL (1.3-4.6); Glucose 147 mg/dL (65-115); Magnesium 1.9 mg/dL (1.7-2.3); Osmolality Calculated 287 mOsm/kg (285-295); Sodium 137 mmol/L (136-145); Total Bilirubin 0.5 mg/dL (0.15-1.2); Total Protein 5.8 g/dL (6.6-8.7)
[2024-07-01 06:19] LABS: Anion Gap 13.8 (5-19); Aspartate Amino Transferase 18 U/L (0-40); Potassium 3.8 mmol/L (3.5-5.1)
--- NOTE | 2024-07-01 06:37 | XR_ITS ---
WS: [id number] XR abdomen 1V* [id number] REASON FOR EXAM: 24 hours after gastrografin FINDINGS: Gross gastric distention. Multiple loops of dilated small bowel with loops up to 5 cm in diameter. Minimal colon gas and a small amount of faint contrast within the rectum. Note: Series 3 image 59, series 5 image 33/34, series 6 image 20 and 31. XR/XR abdomen 1V* [id number] IMPRESSION: Significant gaseous distention of stomach and multiple small bowel loops. CT scan of 06/28/2024 was reviewed. The current degree of distention of the small bowel is decreased compared to the previous CT scan or maximum dimensions of u p to 6.5 cm were present. There is a nonspecific area of transition identifiabl e in 3 planes in the lower left abdomen where normal caliber small bowel bowel appears adhered to a complex dilated dilated loop of small bowel which appears to be mid to distal jejunum.
--- NOTE | 2024-07-01 06:59 | P.PN_ITS ---
Subjective 2 Subjective: No significant events overnight. Patient has continued to have several bowel movements and passing gas although he does feel distended after eating. Vitals/I&O/Wt Last Vital Signs Temp 98.6 F 07/01/24 04:00 Pulse 67 07/01/24 04:00 Resp 18 07/01/24 04:00 BP 173/53 07/01/24 04:00 Pulse Ox 95 07/01/24 04:00 O2 Del Method Room Air 07/01/24 04:00 06/30/24 06/30/24 07/01/24 14:59 22:59 06:59 Intake Total 1000 / 1000 1480 / 2480 1000 / 3480 Output Total 600 / 600 Balance 1000 / 1000 1480 / 2480 400 / 2880 Weight last 48 hrs Weight 180 lb 3.2 oz Weight 174 lb 3.2 oz Physical Exam 2 GI: OTHER: Abdomen examination is benign the abdomen is distended but soft nontender with good bowel sounds Data 07/01/24 05:10 07/01/24 05:10 A&P Assessment and plan (1) Small bowel obstruction: Plan Overall clinical progression is ago he is passing gas has had several bowel movements in the last 24 hours. Unfortunately there is also an elevation of the white count that continues to trend up from yesterday to today and is 16.7 today. We will continue on a clear liquid diet today I will keep a close eye on his clinical status, I have informed the patient in the case of clinical worsening of lack of improvement he might still require surgical intervention. He shows understanding is agreeable with the plan although he is Against the possibility of having an ostomy.I will obtain another x-ray of the abdomen today. I will start him on Zosyn as some of the elevation white count may be due to bacterial translocation due to the stasis in the bowel. Will continue to closely monitor his progression. PDMP PDMP Reviewed: Not Reviewed Attestations 2 Medical Necessity Statement*: Patient will require 48 to 72 hours of hospital stay for continuous management of small bowel obstruction Coding Level of Care Code Acute Code for Chg Fwd Diagnoses Small bowel obstruction K56.609
--- NOTE | 2024-07-01 07:44 | XR_ITS ---
WS: [id number] XR abdomen 1V* [id number] REASON FOR EXAM: confirm ng tube placement. FINDINGS: Nasogastric tube is been placed since the exam of earlier the same day. The tip of the tube is within the body/fundus of the stomach. Stomach remains significantly dilated at this point. Again noted are multiple dilated loops of small bowel. XR/XR abdomen 1V* [id number] IMPRESSION: Proper position of nasogastric tube as above.
[2024-07-01 07:57] LABS: Lactate (Lactic Acid level) 1.2 mmol/L (0.5-2.2)
[2024-07-01] MEDS: piperacillin-tazobactam 3.375 GM in sodium chloride 0.9% (plus) 50 ML IV ×2 (08:09→22:27)
[2024-07-01] MEDS: famotidine 20 mg/2 mL INJ IVP ×2 (09:14→20:27)
--- NOTE | 2024-07-01 10:05 | ANES.PREANE2 ---
Pre-Anesthetic Assessment Height/Weight: Height 6 ft 1 in Weight 180 lb 3.2 oz Temp Pulse Resp BP Pulse Ox O2 Del Method 98.4 F 74 16 186/63 95 Room Air 07/01/24 07:18 07/01/24 07:18 07/01/24 07:18 07/01/24 07:18 07/01/24 07:18 07/01/24 07:18 Preop Diagnosis: Bowel obstruction Operation Date: 07/01/24 13:20 Proposed Procedures p Exploratory Laparotomy(Not Applicable) - Eric Hough MD s possible Bowel Resection, possible ostomy creation(Not Applicable) - Eric Hough MD Was Beta Carolann taken within 24 hours: Yes Was Clonidine taken within 24 hours: N/A Social Alcohol and Tobacco History of alcoholism Exam alert, oriented x 3, clear to auscultation bilaterally and regular rate & rhythm Airway Submandibular: within normal limits Cervical ROM: within normal limits Mallampati: Class III Comments: Comments: Edentulous, NG in place Anesthetic Plan ASA status: 3 Anesthesia: General Other: Patient initially admitted 06/28/2024 with small bowel obstruction. Leukocytosis increasing since that time. WBC 16.7 today. Afebrile currently. Vital stable 1 20-gauge IV in place. Will plan on placing another after we go to sleep. NG currently in place. Will ovens supervisor to suction History of CAD Current smoker 1 pack/day Hypertension on carvedilol and olmesartan Hypothyroidism on Synthroid EKG sinus bradycardia Plan for GETA with RSI Medications/Allergies Home Medications ?Medication ?Instructions ?Recorded ?Confirmed ?Last Taken ?Type aspirin 81 mg tablet,delayed 81 mg PO QAM 07/26/19 06/29/24 06/28/24 History release (Adult Low Dose Aspirin) meloxicam 15 mg tablet 15 mg PO QAM 07/26/19 06/29/24 06/28/24 History multivitamin 1 tab PO QAM 07/26/19 06/29/24 06/28/24 History nitroglycerin 0.4 mg sublingual 0.4 mg sublingual Q5M PRN chest 08/18/20 06/29/24 08/06/22 Rx tablet (Nitrostat) pain #25 tabs fluticasone propionate 50 2 spray intranasal DAILY PRN 09/19/21 06/29/24 07/03/23 History mcg/actuation nasal allergies spray,suspension clopidogrel 75 mg tablet 75 mg PO QAM 08/06/22 06/29/24 06/28/24 History carvedilol 6.25 mg tablet 6.25 mg PO BID 07/03/23 06/29/24 06/28/24 History olmesartan 40 mg tablet 40 mg PO DAILY 07/03/23 06/29/24 06/28/24 History topiramate 25 mg tablet 75 mg PO BID 07/03/23 06/29/24 06/28/24 History amlodipine 5 mg tablet See Rx Instructions .Route 12/09/23 06/29/24 Unknown Rx .COMPLEX #90 tabs levothyroxine 150 mcg tablet 125 mcg PO DAILY 12/18/23 06/29/24 06/28/24 History furosemide 40 mg tablet 40 mg PO DAILY #90 tabs 03/08/24 06/29/24 06/28/24 Rx fluvoxamine 50 mg tablet 50 mg PO DAILY 06/29/24 06/29/24 06/28/24 History isosorbide mononitrate 60 mg 60 mg PO DAILY 06/29/24 06/29/24 06/28/24 History tablet,extended release 24 hr potassium chloride 20 mEq 20 meq PO DAILY 06/29/24 06/29/24 06/28/24 History tablet,extended release(part/cryst) rosuvastatin 20 mg tablet 20 mg PO DAILY 06/29/24 06/29/24 06/28/24 History Allergies Allergy/AdvReac Type Severity Reaction Status Date / Time codeine Allergy Unknown Unknown Verified 06/28/24 12:06 Current Medications Generic Name Dose Route Start Last Admin Trade Name Freq PRN Reason Stop Dose Admin Enoxaparin Sodium 40 mg 06/28/24 23:45 06/30/24 21:01 Enoxaparin 40 Mg/0.4 Ml Syringe SUBCUT 40 mg BEDTIME JONES Administration Famotidine 20 mg 06/28/24 23:45 07/01/24 09:14 Famotidine 20 Mg/2 Ml Inj IVP 20 mg BID@0900,2100 JONES Administration Hydralazine HCl 10 mg 06/30/24 11:27 07/01/24 05:05 Hydralazine 20 Mg/Ml Inj 1 Ml IVP 10 mg Q4H PRN Administration HYPERTENSION Potassium Chloride/Sodium Chloride 20 meq in 1,000 mls @ 150 mls/hr 06/28/24 23:45 07/01/24 09:14 Sodium Chlor 0.9% + Kcl 20 Meq IV 150 mls/hr .Q6H40M JONES Administration Piperacillin Sod/Tazobactam 50 mls @ 12.5 mls/hr 07/01/24 06:45 07/01/24 08:09 Sod 3.375 gm/ Sodium Chloride IV 12.5 mls/hr Q8H JONES Administration Protocol Polyethylene Glycol 17 gm 07/01/24 09:00 07/01/24 08:59 Polyethylene Glycol 3350 Pkt 17 Gm PO Not Given BID JONES Trazodone HCl 50 mg 06/30/24 20:05 06/30/24 21:01 Trazodone 50 Mg Tablet PO 50 mg BEDTIME PRN Administration INSOMNIA PFSH Anesthesia Medical History Metabolic encephalopathy Hypoglycemia Secondary hypothyroidism Status post treatment for Graves' disease Graves disease Status post radioactive iodine treatment now with hypothyroidism History of cerebral angiography 09/2021 at [facility] - mild plaque in bilateral carotids at carotid bulb (20-25%), at level of skull base, 70% concentric stenosis, high grade 90-95% stenosis at V4 segment of PICA COPD (chronic obstructive pulmonary disease) Diabetes mellitus, type II Abnormal cardiovascular stress test (08/2021) CAD (coronary artery disease) HTN (hypertension) Hyperlipidemia Surgical History History of cardiac catheterization ~2005 LAD and RCA stents placed; 2016 patent RCA and LAD stents; 09/2021 LAD stent patent, 90% 1st diagonal, patent circ and OM, RCA with 95% in-stent restenosis treated with balloon angioplasty; 07/2022 proximal RCA with 99% in-stent restenosis treated with balloon angioplasty and stent, proximal LAD 40% with YEHUDA 3 flow, prior LAD stent patent, no significant LM disease, Circ with luminal irregularities S/P appendectomy S/P splenectomy S/P cholecystectomy (2017) Status post incision and drainage (2017) gluteal/perineal abscess S/P PTCA (percutaneous transluminal coronary angioplasty) 2005, 2021, 07/2022 Family History Father CAD (coronary artery disease) Diabetes Myocardial infarction Grandfather CAD (coronary artery disease) Cancer Diabetes Family/Other CAD (coronary artery disease) at 50 Cancer Chronic kidney disease (CKD) Diabetes Lung disease Mother Cancer Lung disease Denies family history of Clotting disorder Dementia Suicide Anesthesia complication Bleeding disorder Stroke Social History Smoking and tobacco/nicotine status: current every day tobacco/nicotine user cigarettes Packs smoked per day: 1 Alcohol intake: current Alcohol intake frequency: few times a week Alcohol type: beer Substance/Drug Use: former Data Anesthesia 07/01/24 05:10 07/01/24 05:10 Short CBC 06/30/24 07/01/24 Range/Units 04:05 05:10 WBC 13.57 H 16.78 H (3.29-11.43) 10^3/uL Hgb 16.50 16.30 (11.27-16.99) g/dL Hct 49.4 49.2 (37-53) % MCV 100.6 102.1 H (82-101) fl Plt Count 344 301 (157-399) 10^3/cmm Neut % (Auto) 74.4 78.1 % Neut # (Auto) 10.11 H 13.11 H (1.8-7.7) 10^3/uL BMP 06/30/24 07/01/24 04:05 05:10 Sodium 136 137 Potassium 3.6 3.8 Chloride 103 105 Carbon Dioxide 23 22 BUN 31 H 13 Creatinine 0.9 0.6 L Glucose 76 147 H Calcium 8.2 L 8.2 L Liver Function 06/30/24 07/01/24 Range/Units 04:05 05:10 Total Bilirubin 0.4 0.5 (0.15-1.2) mg/dL AST 13 18 (0-40) U/L ALT 24 21 (0-41) U/L Alkaline Phosphatase 56 81 (40-130) U/L Albumin 3.2 L 3.0 L (3.5-5.2) g/dL Cardiac Studies: Echocardiogram 07/20/21 Sestamibi Stress Test (Cardiology) 09/04/21
--- NOTE | 2024-07-01 10:15 | PC.NURSE ---
went to surgery
[2024-07-01] MEDS: sodium chloride 0.9% 1,000 ML 30 ML IV (10:29)
--- NOTE | 2024-07-01 13:51 | P.PN_ITS ---
Subjective 2 Subjective: Unable to see patient today. He has been taken for surgery Discussed with general surgeon. X-ray worsening with white count rising. Plan for exploratory laparotomy today. Vitals/I&O/Wt Last Vital Signs Temp 97.5 F L 07/01/24 10:28 Pulse 16 L 07/01/24 10:28 Resp 16 07/01/24 10:28 BP 195/74 07/01/24 10:28 Pulse Ox 96 07/01/24 10:28 O2 Del Method Room Air 07/01/24 10:28 06/30/24 07/01/24 07/01/24 22:59 06:59 14:59 Intake Total 1480 / 2480 1000 / 3480 902.5 / 902.5 Output Total 600 / 600 Balance 1480 / 2480 400 / 2880 902.5 / 902.5 Weight last 48 hrs Weight 81.737 kg Weight 79.016 kg Physical Exam 2 Narrative: Unable to examine patient this morning as he has been taken for surgery. Urinary Catheter Management: Arroyo Latex: Cath Placed During This Visit: yes Urinary Catheter Date of Insertion: 07/01/24 Urinary Catheter Time of Insertion: 11:10 Data 07/01/24 05:10 07/01/24 05:10 A&P Assessment and plan (1) Small bowel obstruction: Continue NG tube to low intermittent wall suction. Patient has been seen by Dr. Hough who will following evaluation for potential need for surgery. We are continuing with conservative care with NG tube for now due to high risk of recurrence with multiple abdominal surgeries (2) Carotid artery disease: Stable (3) Nicotine dependence, cigarettes, with other nicotine-induced disorders: Patient is a smoker 1 pack/day he declines nicotine patch (4) Atherosclerotic heart disease of [place] coronary artery with other forms of angina pectoris: Stable Plan 06/30/2024 plan for gastrograffin study today repeat KUB at 11 gen surg on board await recommendations add hydralazine 10 iv q4h as needed for SBP > 160 continue to hold aspirin plavix in case of surgery pt npo at this time, once clear from surgical standpoint to start diet, will order home medications 07/01/2024 Plan for exploratory laparotomy today. Will check labs. Unable to physically see patient prior to surgery today. I will visit with him once he is back from procedure. Reviewed chart spoke to nursing staff and general surgeon. PDMP PDMP Reviewed: Not Reviewed Attestations 2 Medical Necessity Statement*: Patient will require 48 to 72 hours of hospital stay for continuous management of small bowel obstruction Coding Level of Care Code Acute Code for Chg Fwd Diagnoses Small bowel obstruction K56.609 Bilateral carotid artery disease, unspecified type I77.9 Carotid artery disease type: unspecified Laterality: bilateral Nicotine dependence, cigarettes, with other nicotine-induced disorders F17.218 Atherosclerotic heart disease of [place] coronary artery with other forms of angina pectoris I25.118
--- NOTE | 2024-07-01 14:43 | P.OP_ITS ---
Operative Report Date of procedure: July 01, 2024 Pre-op diagnosis: Small bowel obstruction Post-op diagnosis: same Post-op findings: Frozen abdomen. Extensive lysis of adhesions of at least 120 minutes. Internal hernia encountered. Reduced. Healthy bowel throughout at the end of the case. Procedure done: Exploratory laparotomy and extensive lysis of adhesions. Implants: N/A Specimens removed/disposition: N/A Pathology: none sent Surgeon: Eric Hough Woodwork Teacher: Efrain Tran Anesthesia: General Estimated blood loss (mL): 10 Complications: N/A Findings: Frozen abdomen. Extensive lysis of adhesions of at least 120 minutes. Internal hernia encountered. Reduced. Healthy bowel throughout at the end of the case. Condition: stable Disposition: floor Brief History: 73-year-old male who had been admitted for small bowel obstruction. Patient did not progress with nonoperative management. Dr. Hough took patient to the OR for exploratory laparotomy and due to encountering frozen abdomen asked for my assistance. There was no other qualified staff to assist in this highly complex case. Please refer to Dr. Hough note for details. Procedure: I was called into help with Dr. Hough intraoperatively. He had encountered a frozen abdomen with dense adhesions throughout the belly. I came to assist them. We performed lysis of adhesions for at least 120 minutes. This was done through combination of sharp and blunt dissection. On exploration of the abdominal cavity we encountered an internal hernia which was reduced successfully. After performing the extensive lysis of adhesions, the bowel was ran at least twice and was found to be healthy throughout. This was second extremely challenging case and required a second surgeon. There was no other qualified staff. Please refer to Dr. Hough's note for details.
--- NOTE | 2024-07-01 14:47 | ANES.PROC ---
Anesthesia Procedures Procedure/Date: 07/01/24 Nerve Block ^: Nerve Block 1: Main Anesthesia: general anesthesia Time Out Performed: Yes Consent: requested by attending/covering physician and from patient Nerve block location: other (bilateral TAP block) Anesthesia monitors applied: pulse oximetry, EKG, BP cuff and oxygen Nerve block position: supine Anesthetic Used: other (bupivicaine 0.2%) Amount of anesthesia used (mL): 60 Ultrasound used to: recognize landmarks Nerve Stimulator Used?: No Interscalene/Femoral BLK: other needle (pjunk 4inch) Injection: neg aspiration of heme Patient Tolerated Procedure: well Complications: none
--- NOTE | 2024-07-01 14:57 | PM.OP ---
Operative Report Date of procedure: July 01, 2024 Pre-op diagnosis: Small bowel obstruction Post-op diagnosis: Same, severe adhesions between the colon anterior abdominal wall, several bowel loops and anterior abdominal wall and interloop adhesions. Internal hernia Post-op findings: There appear to be extensive adhesions, several loops of small bowel were completely adhesed to the anterior abdominal wall at the level of the midline due to previous surgical procedures. The adhesions were thick and very difficult to lyse. There were several interloop adhesions and adhesions from the small bowel to the colon lateral abdominal roman and to the root of the mesentery. The colon had extensive adhesions to the anterior abdominal wall. The adhesions had caused an internal hernia that was localized in the right upper quadrant where a transition point was identified. No evidence of devitalized bowel. Procedure done: Exploratory laparotomy, extensive lysis of additions. (applies modifier 22) Specimens removed/disposition: None Surgeon: Eric Hough MD, Efrain Gayle MD Director Of Nuclear Medicine: [facility] Estimated blood loss: 10 Complications: none apparent Brief History: 73-year-old male with history of previous intra-abdominal surgeries who presented with SBO and failed conservative management.After discussion Of all risk and benefits We decided to proceed for laparotomy to the OR. Procedure: Patient was brought into to the OR, he was placed in a supine position. General anesthesia was given. The abdomen was prepped and draped in the usual sterile fashion. A timeout was conducted.Due to history of extensive intra-abdominal surgery I decided to start a laparotomy in the infraumbilical position, allowing to enter a virgin portion Of the abdominal wall.I made 20 cm incision from the supraumbilical region all the way to the infraumbilical region. I then deepened the incision to the subcutaneous tissue until the fascia was identified. At the level of the fascia several strands of permanent suture material were identified. I then proceeded to grasp the fascia with 2 Fifi's and then I used a knife to enter the abdomen in the infraumbilical location. Upon immediate entry I was able to identify severe adhesions of the small bowel to the anterior abdominal wall from the level of the umbilicus all the way up to the epigastrium. Due to the complexity of the adhesions as well as evidence of additional adhesions in the lower abdomen I decided to asked my partner Dr. Tran for assistance as this case was very complex. Was Dr. Tran scrubbing we decided to open the laparotomy all the way up to the epigastrium staying lateral to the adhesions. We then grasped the fascia with 2 Fifi's and carefully proceeded with sharp dissection of the adhesions of the small bowel against the anterior abdominal wall. This was a very long and tedious process and took almost 1 hour to be able to release all the adhesions to the anterior abdominal wall. No evidence of enterotomies were noted. We then proceeded to carefully lyse all the adhesions from the small bowel to the colon and interloop adhesions. This was done with a sharp dissection with Metzenbaum and blunt dissection. We took care on not injuring the small bowel in the process. During lysis of adhesions it was identified that at the level of the mid jejunum there was an apparent internal hernia that had been created from interloop adhesions. This was lysed. No other transition point was identified. The remaining portion of the omentum that the patient had was densely adhered to the small bowel, we carefully dissected this from the small bowel and transected the omentum to prevent future adhesions. Once all the adhesions were taken down, which took approximately 1 hour and 30 minutes. We proceeded to run the bowel from the ligament of Treitz all the way to to the terminal ileum and no evidence of additional points of obstruction or enterotomies were noted. The colon appeared healthy. The good adhesions from the colon to the abdominal wall were left undisturbed. I then proceeded to irrigate the abdomen. The wound was then closed in layers using #0 looped PDS for the fascia and jean-pierre for the skin. At the end of the procedure all counts were correct, the patient tolerated well the procedure and was transferred to the PACU in stable condition. The technical complexity of this case require 2 general surgeons to be able to complete the procedure as no other qualified staff is available.
[2024-07-01] MEDS: fentaNYL 50 mcg/mL INJ 2mL IVP ×2 (15:24→15:36)
--- NOTE | 2024-07-01 15:59 | ANE.PACU2 ---
Inpatient post-anesthesia follow up: Airway intact: Yes Vital signs: Temperature 98.5 F Pulse Rate 108 Respiratory Rate 17 Blood Pressure 178/70 Pulse Oximetry 95 Oxygen Delivery Me thod Room Air Oxygen Flow Rate 2 Fraction of Inspir ed Oxygen Hydration adequate: Yes Nausea and vomiting: No Pain level: 3 Mental status: Baseline
[2024-07-01] MEDS: HYDROmorphone 0.5 MG/0.5 ML INJ IVP ×2 (16:38→20:27)
[2024-07-01] MEDS: acetaminophen 1,000 MG/100 ML PIGGYBACK 400 MG IV ×2 (16:38→23:50)
[2024-07-02] VITALS (9 sets, daily range): BP systolic 169–208; BP diastolic 63–81; PULSE 74–105; RESP 16–20; TEMP 36.4–37; O2SAT 95–99
[2024-07-02] MEDS: hyDRALAzine 20 mg/mL INJ 1 mL 10 MG IVP ×4 (00:22→19:54)
[2024-07-02] MEDS: HYDROmorphone 0.5 MG/0.5 ML INJ IVP ×5 (00:22→19:55)
[2024-07-02] MEDS: sodium chlor 0.9% + KCl 20 mEq 20 MEQ/1,000 ML BAG 150 MEQ IV ×2 (04:37→11:50)
[2024-07-02 04:54] LABS: Basophils # 0.1 10^3/uL (0.0-0.1); Basophils % 0.3 %; Eosinophils % 0.1 %; Hematocrit 51.5 % (37-53); Lymphocytes # 0.6 10^3/uL (0.8-4.8); Lymphocytes % 3.2 %; Mean Corpuscular HGB Conc 33.2 g/dL (30-55); Mean Corpuscular Hemoglobin 33.1 pg (27-33); Mean Corpuscular Volume 99.8 fl (82-101); Mean Platelet Volume 9.7 fL (7.4-10.4); Monocytes # 2.6 10^3/uL (0.2-0.9); Monocytes % 13.7 %; Neutrophils # 15.35 10^3/uL (1.8-7.7); Neutrophils % 81.6 %; Nucleated Red Blood Cells % 0 %; Platelet Count 331 10^3/cmm (157-399); Red Blood Count 5.16 10^6/uL (3.85-5.65); Red Cell Distribution Width 13.7 % (12.1-15.1)
[2024-07-02 05:27] LABS: Blood Urea Nitrogen 16 mg/dL (8-23); Calcium 8.1 mg/dL (8.5-10.5); Carbon Dioxide 21 mmol/L (22-29); Chloride 110 mmol/L (98-107); Creatinine Clr Calc Pharmacy 95.1237; Glucose 158 mg/dL (65-115); Magnesium 1.9 mg/dL (1.7-2.3); Osmolality Calculated 294 mOsm/kg (285-295); Sodium 140 mmol/L (136-145)
[2024-07-02 05:31] LABS: Anion Gap 13.1 (5-19); Potassium 4.1 mmol/L (3.5-5.1)
[2024-07-02] MEDS: piperacillin-tazobactam 3.375 GM in sodium chloride 0.9% (plus) 50 ML IV ×3 (06:23→22:23)
--- NOTE | 2024-07-02 07:47 | P.PN_ITS ---
Subjective 2 Subjective: Today's postoperative day 1 status post exploratory laparotomy with extensive lysis of adhesions and reduction of internal hernia for small bowel obstruction. Patient is doing well overnight has still some abdominal pain, incisional pain, has not ambulated, not passed gas Vitals/I&O/Wt Last Vital Signs Temp 97.5 F L 07/02/24 02:43 Pulse 80 07/02/24 02:43 Resp 16 07/02/24 02:43 BP 177/63 07/02/24 02:43 Pulse Ox 96 07/02/24 02:43 O2 Del Method Room Air 07/02/24 02:43 O2 Flow Rate 2 07/01/24 15:54 07/01/24 07/02/24 07/02/24 22:59 06:59 14:59 Intake Total 1150 / 2852.5 1102.292 / 3954.792 Output Total 950 / 1700 Balance 1150 / 2102.5 152.292 / 2254.792 Weight last 48 hrs Weight 186 lb 8 oz Weight 180 lb 3.2 oz Physical Exam 2 Narrative: NG tube is connected to low intermittent suction with bilious output. Abdominal examination shows abdomen that is soft appropriately tender, less distention than yesterday. Surgical incisions covered with a dressing. There is minimal bowel sounds Urinary Catheter Management: Arroyo Latex: Cath Placed During This Visit: yes Reason for Continuing Indwelling Catheter: Required Immobilization for Trauma or Surgery or Anesthesia Urinary Catheter Date of Insertion: 07/01/24 Urinary Catheter Time of Insertion: 11:10 Data 07/02/24 04:08 07/02/24 04:08 A&P Assessment and plan (1) Small bowel obstruction: Plan Postoperative day 1 status post ex lap with lysis of additions. Progression is adequate. We do expect that the patient will have a prolonged postoperative ileus due to the manipulation and significant lysis of additions that was needed during his procedure. Will continue NG tube to low intermittent suction. The NG tube can be disconnected for the patient to ambulate. Arroyo catheter will remain in place until patient is ambulating consistently. Will obtain a physical therapy evaluation for early ambulation. Patient should be n.p.o. but he wants to have ice chips for comfort. He can have half a cup of ice chips every 12 hours for comfort. I have encouraged the patient to start moving around. We will order incentive spirometer to prevent pulmonary complications. PDMP PDMP Reviewed: Not Reviewed Attestations 2 Medical Necessity Statement*: Per medical team Coding Level of Care Code Acute Code for Chg Fwd Diagnoses Small bowel obstruction K56.609
[2024-07-02] MEDS: famotidine 20 mg/2 mL INJ IVP ×2 (09:27→20:30)
[2024-07-02] MEDS: acetaminophen 1,000 MG/100 ML PIGGYBACK 400 MG IV (09:28)
--- NOTE | 2024-07-02 10:19 | PC.SOCIAL ---
IMM Update pg 2 of IMM Updated and reviewed w/ patient. Copy dated, initialed and placed in chart.
--- NOTE | 2024-07-02 13:59 | PM.PN ---
Subjective Subjective: seen today pt requesting guadalupe denies passing flatus overall feels better pt is s/p ex lap 07/01 Vitals/I&O/Wt Last Vital Signs Temp 98.3 F 07/02/24 12:00 Pulse 96 07/02/24 13:55 Resp 18 07/02/24 13:55 BP 179/71 07/02/24 12:00 Pulse Ox 99 07/02/24 13:55 O2 Del Method Room Air 07/02/24 13:55 O2 Flow Rate 1 07/02/24 08:55 07/01/24 07/02/24 07/02/24 22:59 06:59 14:59 Intake Total 1150 / 2852.5 1102.292 / 3954.792 1150 / 1150 Output Total 750 / 1500 950 / 2450 Balance 400 / 1352.5 152.292 / 7593.258 7783 / 1150 Weight last 48 hrs Weight 84.595 kg Weight 81.737 kg Physical Exam Narrative: NG tube to LIWS CV regular rate and rhythm Lungs clear to auscultation bilaterally Abdomen NG tube suction sounds, distended abdomen, no bowel sounds no edema b/l le Mood and affect normal Urinary Catheter Management: Arroyo Latex: Cath Placed During This Visit: yes Reason for Continuing Indwelling Catheter: Required Immobilization for Trauma or Surgery or Anesthesia Urinary Catheter Date of Insertion: 07/01/24 Urinary Catheter Time of Insertion: 11:10 Data 07/02/24 04:08 07/02/24 04:08 A&P Assessment and plan (1) Small bowel obstruction: Continue NG tube to low intermittent wall suction. Patient has been seen by Dr. Hough who will following evaluation for potential need for surgery. We are continuing with conservative care with NG tube for now due to high risk of recurrence with multiple abdominal surgeries (2) Carotid artery disease: Stable (3) Nicotine dependence, cigarettes, with other nicotine-induced disorders: Patient is a smoker 1 pack/day he declines nicotine patch (4) Atherosclerotic heart disease of [place] coronary artery with other forms of angina pectoris: Stable (5) Status post exploratory laparotomy: (6) Adhesion of intestine: (7) S/P laparotomy with lysis of adhesions: (8) Ileus: (9) Leukocytosis: (10) Absent bowel sounds: Plan 06/30/2024 plan for gastrograffin study today repeat KUB at 11 gen surg on board await recommendations add hydralazine 10 iv q4h as needed for SBP > 160 continue to hold aspirin plavix in case of surgery pt npo at this time, once clear from surgical standpoint to start diet, will order home medications 07/01/2024 Plan for exploratory laparotomy today. Will check labs. Unable to physically see patient prior to surgery today. I will visit with him once he is back from procedure. Reviewed chart spoke to nursing staff and general surgeon. 07/02/2024 continue NPO status except half cup of ice chips continue NG tube LIWS no diet advancement till clearance from gen surgery possibility of prolonged ileus, significant adhesions in ex lap, see operative note wbc 18K, continue to monitor continue zosyn check cbc, cmp in AM pain mgmt hydralazine 5 iv q4h PRN PDMP PDMP Reviewed: Not Reviewed Attestations Medical Necessity Statement*: bowel obstruction s/p ex lap Diagnoses Small bowel obstruction K56.609 Bilateral carotid artery disease, unspecified type I77.9 Carotid artery disease type: unspecified Laterality: bilateral Nicotine dependence, cigarettes, with other nicotine-induced disorders F17.218 Atherosclerotic heart disease of [place] coronary artery with other forms of angina pectoris I25.118 Status post exploratory laparotomy Z98.890 Adhesion of intestine K66.0 S/P laparotomy with lysis of adhesions Z98.890 Ileus K56.7 Leukocytosis D72.829 Absent bowel sounds R19.11
[2024-07-02] MEDS: sodium chlor 0.9% + KCl 20 mEq 20 MEQ/1,000 ML BAG 75 MEQ IV (22:22)
[2024-07-03] VITALS (18 sets, daily range): BP systolic 167–207; BP diastolic 69–97; PULSE 60–168; RESP 16–31; TEMP 36.6–37; O2SAT 71–101
[2024-07-03] MEDS: hyDRALAzine 20 mg/mL INJ 1 mL 10 MG IVP ×4 (00:05→16:48)
[2024-07-03] MEDS: HYDROmorphone 0.5 MG/0.5 ML INJ IVP ×3 (00:05→13:13)
[2024-07-03] MEDS: piperacillin-tazobactam 3.375 GM in sodium chloride 0.9% (plus) 50 ML IV ×3 (06:16→20:13)
--- NOTE | 2024-07-03 09:12 | P.PN_ITS ---
Subjective 2 Subjective: Today's postoperative day 2 status post exploratory laparotomy extensive lysis of additions and reduction of internal hernia for small bowel obstruction. Patient is doing okay, NG output has been less than 100 cc/h over the last 24 hours. Has not passed any gas. No significant abdominal pain other than incisional pain. Has been able to ambulate. Vitals/I&O/Wt Last Vital Signs Temp 97.9 F 07/03/24 07:49 Pulse 90 07/03/24 07:49 Resp 18 07/03/24 07:49 BP 199/78 07/03/24 07:49 Pulse Ox 96 07/03/24 07:49 O2 Del Method Room Air 07/03/24 07:49 O2 Flow Rate 1 07/02/24 08:55 07/02/24 07/03/24 07/03/24 22:59 06:59 14:59 Intake Total 1050 / 2200 50 / 2250 Output Total 1200 / 1200 1300 / 2500 Balance -150 / 1000 -1250 / -250 Weight last 48 hrs Weight 190 lb 12.8 oz Weight 186 lb 8 oz Physical Exam 2 GI: OTHER: Abdominal exam is benign the abdomen is soft mildly distended, the bowel sounds are negative at this time there is only minimal amount of bowel sounds in the lower abdomen. The surgical incision is healing well I replaced the dressing. Urinary Catheter Management: Arroyo Latex: Cath Placed During This Visit: yes Reason for Continuing Indwelling Catheter: Required Immobilization for Trauma or Surgery or Anesthesia Urinary Catheter Date of Insertion: 07/01/24 Urinary Catheter Time of Insertion: 11:10 Data 07/02/24 04:08 07/02/24 04:08 A&P Assessment and plan (1) Small bowel obstruction: (2) Status post exploratory laparotomy: (3) Adhesion of intestine: (4) S/P laparotomy with lysis of adhesions: (5) Ileus: (6) Absent bowel sounds: Plan Patient showing good progression after a laparotomy with extensive lysis of additions for small bowel obstruction. I do anticipate that he is going to have a prolonged postoperative ileus due to the degree of manipulation. In addition patient has informed me today that in the past when he had his laparoscopic cholecystectomy he was already told that he had severe adhesions in the abdomen and he had an inadvertent enterotomy that needed to be repaired. From our standpoint he appears to be progressing well, we will keep the NG tube in the Arroyo catheter for now the Arroyo catheter can be removed while he is actively moving around. The NG tube will be removed once the output is low and the patient shows evidence of return of bowel function. I anticipate that this may take additional 2 to 3 days as patient still appears to have a significant postoperative ileus. I recommend we continue IV antibiotics for now continue IV fluids and additional management per medical team is appreciated. PDMP PDMP Reviewed: Not Reviewed Attestations 2 Medical Necessity Statement*: Per medical team Coding Level of Care Code Acute Code for Chg Fwd Diagnoses Small bowel obstruction K56.609 Status post exploratory laparotomy Z98.890 Adhesion of intestine K66.0 S/P laparotomy with lysis of adhesions Z98.890 Ileus K56.7 Absent bowel sounds R19.11
[2024-07-03] MEDS: famotidine 20 mg/2 mL INJ IVP ×2 (10:23→20:13)
[2024-07-03] MEDS: sodium chlor 0.9% + KCl 20 mEq 20 MEQ/1,000 ML BAG 75 MEQ IV (12:09)
--- NOTE | 2024-07-03 13:01 | P.PN_ITS ---
Subjective 2 Subjective: seen today no flatus no bowel sounds ng draining yellowish/greenish liquid Vitals/I&O/Wt Last Vital Signs Temp 98.0 F 07/03/24 11:51 Pulse 88 07/03/24 11:51 Resp 19 H 07/03/24 11:51 BP 186/80 07/03/24 11:51 Pulse Ox 95 07/03/24 11:51 O2 Del Method Room Air 07/03/24 11:51 O2 Flow Rate 1 07/02/24 08:55 07/02/24 07/03/24 07/03/24 22:59 06:59 14:59 Intake Total 1050 / 2200 50 / 2250 1050 / 1050 Output Total 1200 / 1200 1300 / 2500 Balance -150 / 1000 -1250 / -250 1050 / 1050 Weight last 48 hrs Weight 86.545 kg Weight 84.595 kg Physical Exam 2 Narrative: NG tube to LIWS CV regular rate and rhythm Lungs clear to auscultation bilaterally Abdomen NG tube suction sounds, distended abdomen, no bowel sounds no edema b/l le Mood and affect normal Urinary Catheter Management: Arroyo Latex: Cath Placed During This Visit: yes Reason for Continuing Indwelling Catheter: Required Immobilization for Trauma or Surgery or Anesthesia Urinary Catheter Date of Insertion: 07/01/24 Urinary Catheter Time of Insertion: 11:10 Data 07/02/24 04:08 07/02/24 04:08 A&P Assessment and plan (1) Small bowel obstruction: Continue NG tube to low intermittent wall suction. Patient has been seen by Dr. Hough who will following evaluation for potential need for surgery. We are continuing with conservative care with NG tube for now due to high risk of recurrence with multiple abdominal surgeries (2) Carotid artery disease: Stable (3) Nicotine dependence, cigarettes, with other nicotine-induced disorders: Patient is a smoker 1 pack/day he declines nicotine patch (4) Atherosclerotic heart disease of [place] coronary artery with other forms of angina pectoris: Stable (5) Status post exploratory laparotomy: (6) Adhesion of intestine: (7) S/P laparotomy with lysis of adhesions: (8) Ileus: (9) Leukocytosis: (10) Absent bowel sounds: Plan 06/30/2024 plan for gastrograffin study today repeat KUB at 11 gen surg on board await recommendations add hydralazine 10 iv q4h as needed for SBP > 160 continue to hold aspirin plavix in case of surgery pt npo at this time, once clear from surgical standpoint to start diet, will order home medications 07/01/2024 Plan for exploratory laparotomy today. Will check labs. Unable to physically see patient prior to surgery today. I will visit with him once he is back from procedure. Reviewed chart spoke to nursing staff and general surgeon. 07/02/2024 continue NPO status except half cup of ice chips continue NG tube LIWS no diet advancement till clearance from gen surgery possibility of prolonged ileus, significant adhesions in ex lap, see operative note wbc 18K, continue to monitor continue zosyn check cbc, cmp in AM pain mgmt hydralazine 5 iv q4h PRN 07/03/2024 continue npo status continue ng tube no diet advancement till clearance from gen surgery prolonged ileus check labs today hydralazine 10 iv q4h prn pain mgmt PDMP PDMP Reviewed: Not Reviewed Attestations 2 Medical Necessity Statement*: bowel obstruction s/p ex lap Diagnoses Small bowel obstruction K56.609 Bilateral carotid artery disease, unspecified type I77.9 Carotid artery disease type: unspecified Laterality: bilateral Nicotine dependence, cigarettes, with other nicotine-induced disorders F17.218 Atherosclerotic heart disease of [place] coronary artery with other forms of angina pectoris I25.118 Status post exploratory laparotomy Z98.890 Adhesion of intestine K66.0 S/P laparotomy with lysis of adhesions Z98.890 Ileus K56.7 Leukocytosis D72.829 Absent bowel sounds R19.11
[2024-07-03] MEDS: labetalol 5 mg/mL SDV 20mL 10 MG IVP (15:23)
[2024-07-03] MEDS: saliva stimulant spray 30 mL Btl 1 SPRAY MUCOUS MEM ×2 (15:31→18:18)
[2024-07-03] MEDS: LORazepam 1 MG/0.5 ML injection 0.5 MG IVP (18:28)
[2024-07-03] MEDS: labetalol 5 mg/mL SDV 20mL 20 MG IVP (20:14)
--- NOTE | 2024-07-03 21:13 | PC.NURSE ---
Report called to GREYSON Fitzgerald in ICU. All questions answered. Belongings are being gathered by Diann Barker. The CNAs will transport patient to the ICU for closer monitoring.
[2024-07-03] MEDS: nicardipine 20 MG/200 ML PREMIX 50 MG IV (22:47)
[2024-07-04] VITALS (59 sets, daily range): BP systolic 128–189; BP diastolic 52–118; PULSE 61–135; RESP 12–34; TEMP 36.7; O2SAT 89–96
[2024-07-04] MEDS: nicardipine 20 MG/200 ML PREMIX 50 MG IV ×4 (02:30→14:50)
[2024-07-04 05:15] LABS: Basophils % 0.2 %; Eosinophils # 0.1 10^3/uL (0.0-0.8); Eosinophils % 0.3 %; Hematocrit 47.5 % (37-53); Lymphocytes # 0.9 10^3/uL (0.8-4.8); Lymphocytes % 4.9 %; Mean Corpuscular HGB Conc 34.7 g/dL (30-55); Mean Corpuscular Volume 97.7 fl (82-101); Mean Platelet Volume 9.9 fL (7.4-10.4); Monocytes # 1.7 10^3/uL (0.2-0.9); Neutrophils # 15.92 10^3/uL (1.8-7.7); Neutrophils % 84.4 %; Nucleated Red Blood Cells % 0 %; Platelet Count 360 10^3/cmm (157-399); Red Blood Count 4.86 10^6/uL (3.85-5.65); White Blood Count 18.86 10^3/uL (3.29-11.43)
[2024-07-04 05:56] LABS: Alanine Aminotransferase 20 U/L (0-41); Albumin Level 3.2 g/dL (3.5-5.2); Alkaline Phosphatase 93 U/L (40-130); Anion Gap 16.5 (5-19); Aspartate Amino Transferase 16 U/L (0-40); Blood Urea Nitrogen 16 mg/dL (8-23); Calcium 8.8 mg/dL (8.5-10.5); Carbon Dioxide 20 mmol/L (22-29); Chloride 112 mmol/L (98-107); Globulin 2.7 g/dL (1.3-4.6); Glucose 149 mg/dL (65-115); Osmolality Calculated 304 mOsm/kg (285-295); Potassium 3.5 mmol/L (3.5-5.1); Sodium 145 mmol/L (136-145); Total Bilirubin 0.5 mg/dL (0.15-1.2); Total Protein 5.9 g/dL (6.6-8.7)
[2024-07-04] MEDS: piperacillin-tazobactam 3.375 GM in sodium chloride 0.9% (plus) 50 ML IV ×3 (06:03→21:53)
--- NOTE | 2024-07-04 08:39 | PM.PN ---
Subjective Subjective: He was transferred to the ICU overnight to be placed on a Cardene drip due to elevated blood pressure. Otherwise he is doing very well, has not passed gas yet but he feels gurgling in the stomach. No abdominal pain Vitals/I&O/Wt Last Vital Signs Temp 98.6 F 07/03/24 19:23 Pulse 74 07/04/24 05:43 Resp 26 H 07/04/24 04:30 BP 151/60 07/04/24 04:30 Pulse Ox 95 07/04/24 04:30 O2 Del Method Room Air 07/03/24 19:23 O2 Flow Rate 1 07/02/24 08:55 07/03/24 07/04/24 07/04/24 22:59 06:59 14:59 Intake Total 320.625 / 1370.625 385.833 / 1756.458 Output Total 1100 / 1100 650 / 1750 Balance -779.375 / 270.625 -264.167 / 6.458 Weight last 48 hrs Weight 180 lb 5.41 oz Weight 180 lb 5.41 oz Weight 190 lb 12.8 oz Physical Exam GI: OTHER: Abdominal examination is benign the abdomen is soft less distended than yesterday, appropriately tender, surgical incisions covered with dressing. There is bowel sounds in 4 quadrants Urinary Catheter Management: Arroyo Latex: Cath Placed During This Visit: yes Reason for Continuing Indwelling Catheter: Required Immobilization for Trauma or Surgery or Anesthesia Urinary Catheter Date of Insertion: 07/01/24 Urinary Catheter Time of Insertion: 11:10 Data 07/04/24 04:40 07/04/24 04:40 A&P Assessment and plan (1) Small bowel obstruction: Plan Patient showing good progression after exploratory laparotomy with extensive lysis of additions for small bowel obstruction. He now has good bowel sounds in 4 quadrants, has not passed gas. We will wait for return of bowel function before advancing diet. At the moment he is NG tube output has been decreasing is only documented to be about 500 cc over the last 24 hours. The plan will be for ambulation and if he is able to pass gas we will allow him to have clears. PDMP PDMP Reviewed: Not Reviewed Attestations Medical Necessity Statement*: Per medical team Coding Level of Care Code Acute Code for [facility] Diagnoses Small bowel obstruction K56.609
[2024-07-04] MEDS: famotidine 20 mg/2 mL INJ IVP ×2 (09:34→21:54)
--- NOTE | 2024-07-04 14:00 | P.PN_ITS ---
Subjective 2 Subjective: feels a lot better bowel sound present has not passed flatus yet Vitals/I&O/Wt Last Vital Signs Temp 98.6 F 07/03/24 19:23 Pulse 95 07/04/24 13:00 Resp 27 H 07/04/24 13:00 BP 182/89 07/04/24 13:00 Pulse Ox 95 07/04/24 13:00 O2 Del Method Room Air 07/03/24 19:23 O2 Flow Rate 1 07/02/24 08:55 07/03/24 07/04/24 07/04/24 22:59 06:59 14:59 Intake Total 320.625 / 1370.625 385.833 / 1756.458 200 / 200 Output Total 1100 / 1100 650 / 1750 Balance -779.375 / 270.625 -264.167 / 6.458 200 / 200 Weight last 48 hrs Weight 81.8 kg Weight 81.8 kg Weight 86.545 kg Physical Exam 2 Narrative: sitting up in chair, NG tube clamped CV regular rate and rhythm Lungs clear to auscultation bilaterally Abdomen, soft, tender to palpation around incision as expected, distended abdomen, bowel sounds now present no edema b/l le Mood and affect normal Urinary Catheter Management: Arroyo Latex: Cath Placed During This Visit: yes Reason for Continuing Indwelling Catheter: Required Immobilization for Trauma or Surgery or Anesthesia Urinary Catheter Date of Insertion: 07/01/24 Urinary Catheter Time of Insertion: 11:10 Data 07/04/24 04:40 07/04/24 04:40 A&P Assessment and plan (1) Small bowel obstruction: Continue NG tube to low intermittent wall suction. Patient has been seen by Dr. Hough who will following evaluation for potential need for surgery. We are continuing with conservative care with NG tube for now due to high risk of recurrence with multiple abdominal surgeries (2) Carotid artery disease: Stable (3) Nicotine dependence, cigarettes, with other nicotine-induced disorders: Patient is a smoker 1 pack/day he declines nicotine patch (4) Atherosclerotic heart disease of [place] coronary artery with other forms of angina pectoris: Stable (5) Status post exploratory laparotomy: (6) Adhesion of intestine: (7) S/P laparotomy with lysis of adhesions: (8) Ileus: (9) Leukocytosis: (10) Absent bowel sounds: (11) Hypertensive urgency: Plan 06/30/2024 plan for gastrograffin study today repeat KUB at 11 gen surg on board await recommendations add hydralazine 10 iv q4h as needed for SBP > 160 continue to hold aspirin plavix in case of surgery pt npo at this time, once clear from surgical standpoint to start diet, will order home medications 07/01/2024 Plan for exploratory laparotomy today. Will check labs. Unable to physically see patient prior to surgery today. I will visit with him once he is back from procedure. Reviewed chart spoke to nursing staff and general surgeon. 07/02/2024 continue NPO status except half cup of ice chips continue NG tube LIWS no diet advancement till clearance from gen surgery possibility of prolonged ileus, significant adhesions in ex lap, see operative note wbc 18K, continue to monitor continue zosyn check cbc, cmp in AM pain mgmt hydralazine 5 iv q4h PRN 07/03/2024 continue npo status continue ng tube no diet advancement till clearance from gen surgery prolonged ileus check labs today hydralazine 10 iv q4h prn pain mgmt 07/04/2024 continue npo status, once pt able to pass flatus, advance diet as per gen surg pt transferred to icu last night for cardene ggt once able to resume oral meds, will restart home antihypertensives keep bp 150-160 range stop cardene, switch to hydralazine 20 q6h wbc 18K today continue to monitor continue zosyn PDMP PDMP Reviewed: Not Reviewed Attestations 2 Medical Necessity Statement*: prolonged ileus, s/p ex lap now in ICU on cardene gtt Diagnoses Small bowel obstruction K56.609 Bilateral carotid artery disease, unspecified type I77.9 Carotid artery disease type: unspecified Laterality: bilateral Nicotine dependence, cigarettes, with other nicotine-induced disorders F17.218 Atherosclerotic heart disease of [place] coronary artery with other forms of angina pectoris I25.118 Status post exploratory laparotomy Z98.890 Adhesion of intestine K66.0 S/P laparotomy with lysis of adhesions Z98.890 Ileus K56.7 Leukocytosis D72.829 Absent bowel sounds R19.11 Hypertensive urgency I16.0
[2024-07-04] MEDS: nicardipine 20 MG/200 ML PREMIX 75 MG IV ×2 (18:39→21:40)
[2024-07-04 22:11] LABS: Glucose Point of Care 120 mg/dL (70-110)
[2024-07-04] MEDS: LORazepam 1 MG/0.5 ML injection 0.5 MG IVP (22:24)
[2024-07-05] VITALS (49 sets, daily range): BP systolic 124–195; BP diastolic 61–93; PULSE 62–101; RESP 16–34; TEMP 36.9; O2SAT 87–97
[2024-07-05] MEDS: nicardipine 20 MG/200 ML PREMIX 75 MG IV (00:20)
[2024-07-05] MEDS: nicardipine 20 MG/200 ML PREMIX 50 MG IV (02:50)
[2024-07-05] MEDS: piperacillin-tazobactam 3.375 GM in sodium chloride 0.9% (plus) 50 ML IV ×2 (05:59→14:17)
[2024-07-05 06:03] LABS: Basophils # 0.1 10^3/uL (0.0-0.1); Basophils % 0.3 %; Eosinophils # 0.1 10^3/uL (0.0-0.8); Eosinophils % 0.7 %; Hematocrit 44.7 % (37-53); Lymphocytes # 1.1 10^3/uL (0.8-4.8); Lymphocytes % 5.7 %; Mean Corpuscular Hemoglobin 33.4 pg (27-33); Mean Corpuscular Volume 98.2 fl (82-101); Mean Platelet Volume 10.1 fL (7.4-10.4); Monocytes # 1.4 10^3/uL (0.2-0.9); Monocytes % 6.9 %; Neutrophils % 85.5 %; Nucleated Red Blood Cells % 0 %; Platelet Count 397 10^3/cmm (157-399); Red Blood Count 4.55 10^6/uL (3.85-5.65); Red Cell Distribution Width 14.4 % (12.1-15.1); White Blood Count 19.63 10^3/uL (3.29-11.43)
[2024-07-05 06:26] LABS: Anion Gap 15.1 (5-19); Blood Urea Nitrogen 17 mg/dL (8-23); Calcium 8.6 mg/dL (8.5-10.5); Carbon Dioxide 22 mmol/L (22-29); Chloride 107 mmol/L (98-107); Creatinine Clr Calc Pharmacy 93.8233; Glucose 114 mg/dL (65-115); Osmolality Calculated 294 mOsm/kg (285-295); Potassium 3.1 mmol/L (3.5-5.1); Sodium 141 mmol/L (136-145)
--- NOTE | 2024-07-05 07:11 | P.PN_ITS ---
Subjective 2 Subjective: Doing okay overnight, metoprolol pulled for the last 24 hours from the NG tube was around 600 cc, when I evaluated patient the NG tube was connected to the wall but noted to be of after I turned the suction on I emptied 100 cc from his stomach but in the total output for today to 700 cc. He is otherwise doing okay hears a lot of rumbling in the stomach but has not passed gas yet. Vitals/I&O/Wt Last Vital Signs Temp 98.4 F 07/05/24 00:30 Pulse 85 07/05/24 06:00 Resp 25 H 07/05/24 06:00 BP 168/72 07/05/24 06:00 Pulse Ox 95 07/05/24 06:00 O2 Del Method Room Air 07/03/24 19:23 O2 Flow Rate 1 07/02/24 08:55 07/04/24 07/05/24 07/05/24 22:59 06:59 14:59 Intake Total 440.833 / 890.833 489.167 / 1380.000 Output Total 750 / 750 550 / 1300 Balance -309.167 / 140.833 -60.833 / 80.000 Weight last 48 hrs Weight 181 lb 12.835 oz Weight 180 lb 5.41 oz Weight 180 lb 5.41 oz Physical Exam 2 GI: OTHER: Abdominal examination is benign the abdomen is soft is appropriately tender to palpation there is good bowel sounds. Urinary Catheter Management: Arroyo Latex: Cath Placed During This Visit: yes Reason for Continuing Indwelling Catheter: Accurate Measurement of Urinary Output in Critically Ill Patients Urinary Catheter Date of Insertion: 07/01/24 Urinary Catheter Time of Insertion: 11:10 Data 07/05/24 05:08 07/05/24 05:08 A&P Assessment and plan (1) Small bowel obstruction: (2) Status post exploratory laparotomy: Plan 73-year-old male who is status post oratory laparotomy and extensive lysis of additions for small bowel obstruction. He has a significant postoperative ileus. Has not passed gas yet but has very good bowel sounds. The plan for today is to clamp the NG tube over the next 6 hours and then check a residual, if the residual is low I will plan to give him clears. His white count has trended up but at the moment there is no indication for any additional workup from the surgical standpoint as his clinical progression and vital signs are otherwise stable. I will order incentive spirometer today. He needs to ambulate PDMP PDMP Reviewed: Not Reviewed Attestations 2 Medical Necessity Statement*: Per medical team Coding Level of Care Code Acute Code for Chg Fwd Diagnoses Small bowel obstruction K56.609 Status post exploratory laparotomy Z98.890
[2024-07-05] MEDS: famotidine 20 mg/2 mL INJ IVP ×2 (08:39→20:41)
--- NOTE | 2024-07-05 11:30 | PC.NURSE ---
patient walked in [place] around nurses station approximately 180 ft min pain no flatus noted during ambulation
--- NOTE | 2024-07-05 11:31 | PM.MISC ---
Miscellaneous Note Purpose of Documentation: Update on patient care Note: Patient has failed clamping trial, has been complaining of some increased abdominal distention although he is still feels significant movement in his abdomen. The residual was around 500 cc of bilious material this over 6 hours, therefore he is not ready for removal of NG tube or advancement of diet. NG will be kept to continuous suction. Since patient has been without p.o. intake with almost 8 days I will order a PICC line and we will plan on possibly starting TPN in the next 24 to 48 hours. If patient has not had a bowel movement or passed gas by Friday the next step will be repeat imaging of the abdomen. He is otherwise doing well his abdominal examination remains benign and he does have good bowel sounds on my exam.
--- NOTE | 2024-07-05 11:33 | XR_ITS ---
WS: [id number] Exam: XR chest 1V portable [id number] Date/Time of Exam: 07/05/2024 12:11 PM Reason For Exam: Post PICC insertion Comparison 06/28/2024. A right-sided PICC line has been placed and appears to end at the cavoatrial junction. The line is in satisfactory location. The lungs are clear. No pneumothorax. Heart size top limits normal. An enteric tube extends below the diaphragm but the tip is not visible. No pleural effusion. Bony structures are intact. The mediastinum is normal in contour. XR/XR chest 1V portable [id number] IMPRESSION: 1. Right-sided PICC line ending at the expected region of the cavoatrial juncti on. 2. No acute process noted otherwise.
--- NOTE | 2024-07-05 11:34 | XRR_ITS ---
PROCEDURE INFORMATION: Exam: XR Abdomen Exam date and time: 07/05/2024 12:19 PM Age: 73 years old Clinical indication: Condition or disease; Other: Ileus; Additional info: F/u post op ileus TECHNIQUE: Imaging protocol: Radiologic exam of the abdomen. Views: Frontal supine view of the abdomen. 1 View. COMPARISON: CR XR abdomen 1V* [id number] 07/01/2024 7:58 AM FINDINGS: Tubes, catheters and devices: There is an NG tube terminating in the body of the stomach. Lungs: Visualized lung bases are clear. Gastrointestinal tract: There is generalized gaseous distension of small and large bowel loops, nonspecific in overall appearance and may be secondary to generalized ileus with partial small bowel obstruction to be excluded. There is a loop of bowel in the left lower quadrant with bowel wall appearing mildly thickened on the current study with some thumbprinting evident which could be better assessed on CT exam. Bones/joints: Unremarkable. Soft tissues: There are numerous surgical jean-pierre along the abdominal wall at the midline. XR/XR abdomen 1V* [id number] IMPRESSION: Nonspecific bowel gas pattern as discussed above.
--- NOTE | 2024-07-05 12:47 | PICC.NOTE ---
Triple lumen PICC placed to right basilic vein. Referred to vascular access nurse for PICC placement due to bowel obstruction and need for TPN. Risks and benefits discussed and informed consent obtained from pt. Right arm assessed with right basilic vein measuring 5.2 mm, straight, and apparent best choice for placement. Using sterile technique and MST, right basilic vein accessed x 1 stick. Mid-arm circumference measured 10 cm from right AC 30 cm. Trimmed cath 43 cm with 0 cm external length noted. CXR shows tip in cavoatrial junction, in good position for use per radiologist. Line secured with stat-lock. Insertion site covered with Biopatch and TSM. Report given to bedside nurse, GREYSON Snider.
--- NOTE | 2024-07-05 12:48 | PC.NUTR ---
Consult for TPN received. Recommend beginning TPN@ 23mls/hr and increasing 20mls Q4-8H until goal rate of 83mls/hr is reached, with standard electrolytes and MV 10mls/day.
--- NOTE | 2024-07-05 13:35 | P.PN_ITS ---
Subjective 2 Subjective: Seen this morning. Patient has not passed flatus yet. He is on 2.5 Cardene drip. Blood pressure has been elevated. Vitals/I&O/Wt Last Vital Signs Temp 98.4 F 07/05/24 00:30 Pulse 68 07/05/24 09:00 Resp 23 H 07/05/24 09:00 BP 174/77 07/05/24 09:00 Pulse Ox 97 07/05/24 09:00 O2 Del Method Room Air 07/05/24 09:00 O2 Flow Rate 1 07/02/24 08:55 07/04/24 07/05/24 07/05/24 22:59 06:59 14:59 Intake Total 440.833 / 890.833 489.167 / 1380.000 Output Total 750 / 750 550 / 1300 Balance -309.167 / 140.833 -60.833 / 80.000 Weight last 48 hrs Weight 82.464 kg Weight 81.8 kg Weight 81.8 kg Physical Exam 2 Narrative: sitting up in chair, NG tube clamped CV regular rate and rhythm Lungs clear to auscultation bilaterally Abdomen, soft, tender to palpation around incision as expected, distended abdomen, bowel sounds now present no edema b/l le Mood and affect normal Urinary Catheter Management: Arroyo Latex: Cath Placed During This Visit: yes Reason for Continuing Indwelling Catheter: Accurate Measurement of Urinary Output in Critically Ill Patients Urinary Catheter Date of Insertion: 07/01/24 Urinary Catheter Time of Insertion: 11:10 Data 07/05/24 05:08 07/05/24 05:08 A&P Assessment and plan (1) Small bowel obstruction: Continue NG tube to low intermittent wall suction. Patient has been seen by Dr. Sinclair who will following evaluation for potential need for surgery. We are continuing with conservative care with NG tube for now due to high risk of recurrence with multiple abdominal surgeries (2) Carotid artery disease: Stable (3) Nicotine dependence, cigarettes, with other nicotine-induced disorders: Patient is a smoker 1 pack/day he declines nicotine patch (4) Atherosclerotic heart disease of [place] coronary artery with other forms of angina pectoris: Stable (5) Status post exploratory laparotomy: (6) Adhesion of intestine: (7) S/P laparotomy with lysis of adhesions: (8) Ileus: (9) Leukocytosis: (10) Absent bowel sounds: (11) Hypertensive urgency: Plan 06/30/2024 plan for gastrograffin study today repeat KUB at 11 gen surg on board await recommendations add hydralazine 10 iv q4h as needed for SBP > 160 continue to hold aspirin plavix in case of surgery pt npo at this time, once clear from surgical standpoint to start diet, will order home medications 07/01/2024 Plan for exploratory laparotomy today. Will check labs. Unable to physically see patient prior to surgery today. I will visit with him once he is back from procedure. Reviewed chart spoke to nursing staff and general surgeon. 07/02/2024 continue NPO status except half cup of ice chips continue NG tube LIWS no diet advancement till clearance from gen surgery possibility of prolonged ileus, significant adhesions in ex lap, see operative note wbc 18K, continue to monitor continue zosyn check cbc, cmp in AM pain mgmt hydralazine 5 iv q4h PRN 07/03/2024 continue npo status continue ng tube no diet advancement till clearance from gen surgery prolonged ileus check labs today hydralazine 10 iv q4h prn pain mgmt 07/04/2024 continue npo status, once pt able to pass flatus, advance diet as per gen surg pt transferred to icu last night for cardene ggt once able to resume oral meds, will restart home antihypertensives keep bp 150-160 range stop cardene, switch to hydralazine 20 q6h wbc 18K today continue to monitor continue zosyn 07/05/2024 Continue n.p.o. status Once patient able to pass flatus advance diet as per general surgery Wean off Cardene. Switch to hydralazine 20 every 6 hours. WBC count 19,000 today. Continue to monitor Recheck CT abdomen pelvis with IV contrast for reevaluation. place picc line start tpn check bmp, mag, phos daily pt maybe at risk of refeeding discussed with dr. sinclair PDMP PDMP Reviewed: Not Reviewed Attestations 2 Medical Necessity Statement*: prolonged ileus, s/p ex lap Diagnoses Small bowel obstruction K56.609 Bilateral carotid artery disease, unspecified type I77.9 Carotid artery disease type: unspecified Laterality: bilateral Nicotine dependence, cigarettes, with other nicotine-induced disorders F17.218 Atherosclerotic heart disease of [place] coronary artery with other forms of angina pectoris I25.118 Status post exploratory laparotomy Z98.890 Adhesion of intestine K66.0 S/P laparotomy with lysis of adhesions Z98.890 Ileus K56.7 Leukocytosis D72.829 Absent bowel sounds R19.11 Hypertensive urgency I16.0
--- NOTE | 2024-07-05 13:37 | PC.SOCIAL ---
IMM Updated Updated pt on IMM. No questions voiced. Provided pt a copy. Initialed, dated, & timed copy in chart.
--- NOTE | 2024-07-05 14:06 | CT_ITS ---
WS: [id number] CT ABDOMEN AND PELVIS WITH CONTRAST HISTORY: post op, leukocytosis, TECHNIQUE: Imaging performed of the abdomen and pelvis with IV contrast. Single phase imaging of the abdomen. Coronal and sagittal reformats are submitted. All CT scans at [facility] use at least one of these dose optimization techniques: automated exposure control; mA and/or kV adjustment per patient size (includes targeted exams where dose is matched to clinical indication); or iterative reconstruction. IV CONTRAST: Omnipaque 350; 100 mL IV. Oral contrast: No DLP: 682.84 mGy.cm COMPARISON: 06/28/2024 Lower thorax: New small LEFT pleural effusion with adjacent compressive atelectasis. Very tiny RIGHT pleural effusion and dependent lung changes. Normal size heart. Small hiatal hernia. Liver/biliary system: Normal size liver. There are a few tiny granulomata. Normal portal vein. No portal venous air. Gallbladder: Prior cholecystectomy. Common bile duct is normal. Pancreas: Normal size pancreas and pancreatic duct. No adjacent inflammation. Spleen: Small caliber lobulated spleen. May be from prior trauma or infarct. There is several small splenic lobulations. Adrenal glands: Normal. Right kidney: Normal size RIGHT kidney. Nonobstructing calcification lower pole. Mild perinephric stranding. Left kidney: Tiny cortical hypodensities are too small to characterize. Nonobstructing calcification. Mild perinephric stranding. Aorta: Extensive atherosclerosis aorta. Moderate calcification within the abdominal aorta. Calcification at the origin of the splenic artery and SMA. There does not appear to be an obstruction of the mesenteric arteries. Lymphadenopathy: None. Free fluid: Small amount of ascites within the pelvis. This ascites is new since the prior examination. Layering attenuation suggesting this may be bladder or pus. This is not a well organized collection and there is no enhancing wall. GI tract: Stomach is moderately distended with fluid and some air. No NG tube is evident. Dilated duodenum. Proximal jejunum is also dilated. There is fluid distention of the jejunum with a significant high-grade obstruction. Proximal small bowel dilated to 5.2 cm. Hyperemic small bowel wall with small bowel wall thickening measuring greater than 3 mm. Appendix is not identified. Extensive pneumatosis noted within the ascending colon extending to the hepatic flexure. Decreased enhancement within the ascending colonic wall. Distal colon is collapsed containing oral contrast from a prior exam.. Several small foci of free air in the peritoneal cavity can be seen with the recent surgery. Abdominal wall: Ventral abdominal wall recent postsurgical changes with extensive jean-pierre. Subcutaneous edema within the abdomen and pelvis. Pelvis: Free fluid in the pelvis is mildly complex with a fluid layer. Arroyo catheter in nondistended bladder. There is a small amount of air within the bladder. Bones: Unremarkable. CT/CT abdomen pelvis w con* [id number] IMPRESSION: 1. Extensive anterior abdominal wall postoperative changes since the prior sai dy of 06/28/2024. 2. Extensive pneumatosis involving the ascending colon. There is decreased enh ancement within the ascending colon wall. Highly suspicious for ischemic change s. New since the prior study. Recommend reevaluation by surgery. 3. High-grade small bowel obstruction. Increased fluid within the small bowel with small bowel wall thickening and hyperemia. 4. A few foci of air within the peritoneal cavity may be secondary to the rece nt surgery or GI perforation. 5. Mildly complex fluid within the pelvis is new. This may be seen with pus or hemoperitoneum. There is no abscess. No focal collection which is well encased . 6. New very small bilateral pleural effusions with compressive atelectasis. 7. Soft tissue anasarca. 8. Extensive atherosclerosis abdominal aorta. Atherosclerotic plaque in the pr oximal celiac axis and SMA. No definite thrombus identified. BRIAN is not identif ied or enhancing. Notified Adalgisa Goodman MD at 07/05/2024 3:41 PM.
[2024-07-05] MEDS: potassium chloride premix 100 ML 25 MEQ IV (14:17)
--- NOTE | 2024-07-05 14:46 | PC.NURSE ---
Patient reported to this nurse that he passed gas. Dr. Goodman notified
[2024-07-05] MEDS: iohexol 350 mg/mL 500 mL Btl (per mL) IV (15:11)
--- NOTE | 2024-07-05 15:37 | XR_ITS ---
WS: [id number] Exam: XR chest 1V portable [id number] Date/Time of Exam: 07/05/2024 3:41 PM Reason For Exam: verify placement of NG Comparison with previous study on the same day at 12:14 p.m. NG tube has been placed and is looped in the fundus of the stomach. Right-sided PICC line ends at the level of the cavoatrial junction. The lungs are clear and fully expanded. Normal cardiomediastinal silhouette. Unremarkable bony structures. XR/XR chest 1V portable [id number] IMPRESSION: 1. Enteric tube looped in the gastric fundus. The chest is otherwise unchanged since the previous study.
--- NOTE | 2024-07-05 16:56 | P.PN_ITS ---
Subjective 2 Subjective: I was called to reevaluate the patient as he is status post CT scan of the abdomen pelvis with contrast and there were findings concerning for the possibility of ongoing obstruction, pneumatosis of the right colon and possible free fluid in the abdomen. Since my evaluation this morning patient has remained stable, no significant worsening of abdominal pain, he has been able to pass gas several times today. He is hungry. Vitals/I&O/Wt Last Vital Signs Temp 98.4 F 07/05/24 00:30 Pulse 95 07/05/24 16:00 Resp 16 07/05/24 16:00 BP 177/84 07/05/24 16:00 Pulse Ox 95 07/05/24 14:30 O2 Del Method Room Air 07/05/24 09:00 O2 Flow Rate 1 07/02/24 08:55 07/05/24 07/05/24 07/05/24 06:59 14:59 22:59 Intake Total 489.167 / 1380.000 50 / 50 Output Total 550 / 1300 Balance -60.833 / 80.000 50 / 50 Weight last 48 hrs Weight 181 lb 12.835 oz Weight 180 lb 5.41 oz Weight 180 lb 5.41 oz Physical Exam 2 Narrative: NG tube is connected to low intermittent suction, producing clear bilious fluid. Abdominal examination remains stable the abdomen is soft, mildly distended, tenderness is appropriate, no rebound tenderness, no peritonitis. There is good bowel sounds in 4 quadrants. Urinary Catheter Management: Arroyo Latex: Cath Placed During This Visit: yes Reason for Continuing Indwelling Catheter: Accurate Measurement of Urinary Output in Critically Ill Patients Urinary Catheter Date of Insertion: 07/01/24 Urinary Catheter Time of Insertion: 11:10 Data 07/05/24 05:08 07/05/24 05:08 A&P Assessment and plan (1) Small bowel obstruction: Plan This is a 73-year-old male with intestinal obstruction status post laparotomy with extensive lysis of additions. He has an extensive postoperative ileus, today medical team has decided to obtain a CT scan of the abdomen and pelvis due to persistent leukocytosis. CT scan of the abdomen and pelvis was evaluated by radiology to consider that the patient had pneumatosis of the right colon with possible ischemic changes, distention of the bowel and hip arrhythmia consistent with a small bowel obstruction and I was called for reevaluation.Patient at the moment of my evaluation is completely stable, normal vital signs, no fever, no tachycardia, has passed gas several times. Abdominal examination remains stable with no evidence of peritonitis. No subjective increasing pain he actually feels better than in the morning. I evaluated the CT scan of the abdomen and pelvis and the following are my findings. Regarding the possible pneumatosis of the cecum and ascending colon, I do think this is more likely to be a pseudo pneumatosis as now the right colon is distended with gas and fluid which can create the appearance of gas in the wall of the colon, the evidence of the pseudo pneumatosis pattern ending in the area where the fluid ends at the level of the hepatic flexure supports this hypothesis, in cases of actual pneumatosis the air in the wall of the colon extends beyond the fluid level interface. Regarding the finding of intestinal obstruction, I have evaluated the pre of the scan versus this can actually see some improvement on the distention of the bowel loops, is also important to note that now there is significant fluid and gas in the right colon which was completely absent preop, this likely indicates that the obstruction is resolving or has been resolved and the finding of persistent dilation of the small bowel is most likely consistent with a persistent ileus. I do agree that there is edema of some bowel loops and hyperemia, this is consistent with intraoperative findings of thickened bowel from chronic obstruction due to severe adhesions. I think this area Of hyperemia may predispose the patient for developing of enteroenteric or enterocutaneous fistula in the future but at the moment no intervention is recommended for this. Regarding the free fluid in the pelvis, I do agree with radiology assessment, this is most likely blood from the surgical intervention as there was major lysis of adhesions. This needs to be closely followed up as these has the potential of becoming an infected fluid collection that may require IR drainage. In addition to the CAT scan interpretation, the intraoperative findings are not consistent with the current CT scan reading, we did visualize the right colon during surgery, the same was healthy and was left undisturbed, no significant manipulation of the mesocolon was require and therefore is unlikely to develop significant changes at that level in such a short period of time. There is also no CT evidence of other concomitant findings that are usually seen in patients with pneumatosis including portal venous gas. There is no significant free air that will indicate perforation, there is minimal speckles of air that are postsurgical in nature. I think the CT findings are compatible with patient current clinical picture, persistent ileus and chronic bowel obstruction due to the severe adhesions. Unless there is significant change in patient clinical status including developing peritonism, significant changes in the hemodynamic profile or vital signs or other concerning symptoms I do not consider that he will be appropriate to return to the OR for reexploration. At this moment the risk of reexploration causing major complications including , outweighs any benefit of completely ruling out imaging findings. We will continue current plan with NG tube decompression, unless the patient has a bowel movement in the next 12 hours the plan will probably be to administer Gastrografin early in the morning tomorrow to obtain more information and to assist with resolution of his prolonged postoperative ileus. In case of failure of progression with the Gastrografin we might repeat imaging the day after tomorrow unless there is any changes in clinical status. Patient is tensive discussion about this findings and plan with the patient who agrees. According to him he is feeling very well and would not want any kind of intervention at this time. Will continue to monitor white count, we have ordered a lactate level and CRP and will trend those levels. Is important to note that in cases of possible colonic ischemia with pneumatosis in otherwise stable patients with benign abdominal exam supportive care and hydration is usually the mainstay of therapy and surgical intervention is reserved for perforation or concerning features. PDMP PDMP Reviewed: Not Reviewed Attestations 2 Medical Necessity Statement*: Patient will require 2 to 3 days of hospital stay for continued management of SBO Coding Level of Care Code Acute Code for Chg Fwd Diagnoses Small bowel obstruction K56.609
[2024-07-05 17:01] LABS: C Reactive Protein 36.4 mg/L (0.0-4.9); Lactic Sepsis W/Reflex 0.9 mmol/L (0.5-2.2)
[2024-07-05] MEDS: MEROPENEM 2,000 MG in sodium chloride 0.9% (plus) 50 ML 100 MG IV ×2 (17:52→23:46)
[2024-07-05] MEDS: nicardipine 20 MG/200 ML PREMIX 25 MG IV (18:54)
[2024-07-05] MEDS: LORazepam 2 mg/mL INJ 1 mL 0.5 MG IVP (23:44)
[2024-07-05] MEDS: LORazepam 1 MG/0.5 ML injection (23:45)
[2024-07-06] VITALS (27 sets, daily range): BP systolic 121–176; BP diastolic 61–85; PULSE 66–104; RESP 15–32; TEMP 36.8–36.9; O2SAT 85–95
--- NOTE | 2024-07-06 00:16 | XRR_ITS ---
PROCEDURE INFORMATION: Exam: XR Chest Exam date and time: 07/06/2024 12:29 AM Age: 73 years old Clinical indication: Device placement; Ng tube; Additional info: Ng tube placement TECHNIQUE: Imaging protocol: Radiologic exam of the chest. Views: 1 view. COMPARISON: CR XR chest 1V portable [id number] 07/05/2024 3:45 PM FINDINGS: Tubes, catheters and devices: Enteric tube tip below the diaphragm over the gastric bubble. Right-sided PICC line with tip in superior vena cava. Lungs: Mild emphysematous changes suspected. Pleural spaces: Trace bilateral pleural effusions. Heart/Mediastinum: Unremarkable. No cardiomegaly. Bones/joints: Unremarkable. XR/XR chest 1V portable [id number] IMPRESSION: 1. Enteric tube tip below the diaphragm over the gastric bubble. 2. Trace bilateral pleural effusions. 3. Mild emphysematous changes suspected. 4. Right-sided PICC line with tip in superior vena cava.
[2024-07-06 00:27] LABS: Bilirubin Urine Negative (Negative); Blood Urine Non-haemolysed trace (Negative); Glucose Urine UA Negative (Normal); Ketones Urine 2+ (Negative); Leukocyte Esterase Urine Negative (Negative); Nitrate Urine Negative (Negative); Protein Urine 1+ (Negative); Urine Appearance Clear (CLEAR); Urine Color Yellow (Yellow); pH Urine 6.5 (5-7)
[2024-07-06 00:32] LABS: Add Urine Microscopic? YES; Bacteria Urine None Seen /hpf; Hyaline Casts Urine 1.65 /lpf; Squamous Epithelial Cell Urine 0-5 /hpf (0-5); WBC Urine 0-5 /hpf (0-5)
[2024-07-06 00:39] LABS: Specific Gravity, Urine 1.031 (1.005-1.030)
[2024-07-06] MEDS: nicardipine 20 MG/200 ML PREMIX 25 MG IV ×3 (02:34→18:43)
[2024-07-06 04:38] LABS: Basophils % 0.2 %; Eosinophils # 0.1 10^3/uL (0.0-0.8); Eosinophils % 0.6 %; Hematocrit 43.7 % (37-53); Lymphocytes # 1.3 10^3/uL (0.8-4.8); Lymphocytes % 5.7 %; Mean Corpuscular HGB Conc 34.3 g/dL (30-55); Mean Corpuscular Hemoglobin 33.6 pg (27-33); Mean Platelet Volume 9.7 fL (7.4-10.4); Monocytes # 1.4 10^3/uL (0.2-0.9); Monocytes % 6.2 %; Neutrophils # 19.36 10^3/uL (1.8-7.7); Neutrophils % 86.3 %; Nucleated Red Blood Cells % 0 %; Platelet Count 413 10^3/cmm (157-399); Red Blood Count 4.46 10^6/uL (3.85-5.65); Red Cell Distribution Width 13.8 % (12.1-15.1); White Blood Count 22.44 10^3/uL (3.29-11.43)
[2024-07-06 04:49] LABS: Alanine Aminotransferase 24 U/L (0-41); Albumin Level 2.6 g/dL (3.5-5.2); Alkaline Phosphatase 60 U/L (40-130); Anion Gap 12.8 (5-19); Aspartate Amino Transferase 22 U/L (0-40); Blood Urea Nitrogen 13 mg/dL (8-23); C Reactive Protein 31.4 mg/L (0.0-4.9); Calcium 8.1 mg/dL (8.5-10.5); Carbon Dioxide 26 mmol/L (22-29); Chloride 103 mmol/L (98-107); Creatinine Clr Calc Pharmacy 94.1322; Globulin 2.4 g/dL (1.3-4.6); Glucose 79 mg/dL (65-115); Osmolality Calculated 287 mOsm/kg (285-295); Sodium 139 mmol/L (136-145); Total Bilirubin 0.6 mg/dL (0.15-1.2)
[2024-07-06 04:55] LABS: Lactate (Lactic Acid level) 0.7 mmol/L (0.5-2.2)
[2024-07-06 04:56] LABS: Potassium 2.8 mmol/L (3.5-5.1)
[2024-07-06 04:58] LABS: Magnesium 1.7 mg/dL (1.7-2.3)
[2024-07-06] MEDS: potassium chloride premix 100 ML 25 MEQ IV ×4 (05:43→20:02)
[2024-07-06] MEDS: magnesium sulfate premix 2 GM/50 ML PIGGYBACK IV (05:43)
--- NOTE | 2024-07-06 07:53 | P.PN_ITS ---
Subjective 2 Subjective: Clinically has seen significant improvement over the last 24 hours. He is still passing gas, there is no abdominal pain. NG tube output has been minimal overnight. Vitals/I&O/Wt Last Vital Signs Temp 98.4 F 07/05/24 00:30 Pulse 76 07/06/24 04:00 Resp 21 H 07/06/24 04:00 BP 166/83 07/06/24 04:00 Pulse Ox 92 07/06/24 04:00 O2 Del Method Room Air 07/05/24 09:00 O2 Flow Rate 1 07/02/24 08:55 07/05/24 07/06/24 07/06/24 22:59 06:59 14:59 Intake Total 216.667 / 266.667 50 / 316.667 Output Total 1650 / 1650 550 / 2200 Balance -1433.333 / -1383.333 -500 / -1883.333 Weight last 48 hrs Weight 183 lb Weight 181 lb 12.835 oz Physical Exam 2 GI: OTHER: Abdominal examination is completely benign, the abdomen is soft, nontender, distention has improved, there is good bowel sounds. Urinary Catheter Management: Arroyo Latex: Cath Placed During This Visit: yes Reason for Continuing Indwelling Catheter: Accurate Measurement of Urinary Output in Critically Ill Patients Urinary Catheter Date of Insertion: 07/01/24 Urinary Catheter Time of Insertion: 11:10 Data 07/06/24 03:45 07/06/24 03:45 A&P Assessment and plan (1) Small bowel obstruction: (2) Adhesion of intestine: Plan Overall patient clinical progression has been very good over the last 24 hours. His white count continues to trend up and is in the low 20s today, his lactate level is normal and his CRP is trending down. Since there is no clinical indication of substation worsening of his condition I do not think there is any benefit at this point to proceed with any additional surgical intervention or aspiration. His potassium was low this morning to 2.8. After he received the first dose of replacement I may proceed with a Gastrografin study to evaluate for GI motility and resolution of the SBO. It is my hypothesis that the most likely source of the patient's white count is the free fluid located in his pelvis. Awake and continues to trend up and we have demonstrated resolution of his small bowel obstruction denies a stat will be to obtain additional imaging and possible IR drainage of the collection. Patient shows understanding he agrees with the plan. Of note he has been afebrile this time, no tachycardia. PDMP PDMP Reviewed: Not Reviewed Attestations 2 Medical Necessity Statement*: Per medical team Coding Level of Care Code Acute Code for Chg Fwd Diagnoses Small bowel obstruction K56.609 Adhesion of intestine K66.0
[2024-07-06] MEDS: famotidine 20 mg/2 mL INJ IVP ×2 (08:10→20:40)
[2024-07-06] MEDS: MEROPENEM 2,000 MG in sodium chloride 0.9% (plus) 50 ML 100 MG IV ×2 (08:10→15:50)
[2024-07-06] MEDS: vancomycin 1,500 MG/300 ML PIGGYBACK 200 MG IV ×2 (09:51→20:40)
--- NOTE | 2024-07-06 12:25 | PHA.VACGOAL ---
Vancomycin Goal - Goal Vancomycin Goal:: 15-20 mg/L Vancomycin Indication:: Other - Therapy Current therapy:: Meropenem Day of therpy:: Day []of [] . Actual body weight (kg): 183 lb - Data Labs: WBC 22.44 10^3/uL (3.29-11.43) H 07/06/24 03:45 RBC 4.46 10^6/uL (3.85-5.65) 07/06/24 03:45 Hgb 15.00 g/dL (11.27-16.99) 07/06/24 03:45 Hct 43.7 % (37-53) 07/06/24 03:45 MCV 98.0 fl (82-101) 07/06/24 03:45 MCH 33.6 pg (27-33) H 07/06/24 03:45 MCHC 34.3 g/dL (30-55) 07/06/24 03:45 RDW 13.8 % (12.1-15.1) 07/06/24 03:45 Sodium 139 mmol/L (136-145) 07/06/24 03:45 Potassium 2.8 mmol/L (3.5-5.1) L* 07/06/24 03:45 Chloride 103 mmol/L (98-107) 07/06/24 03:45 Carbon Dioxide 26 mmol/L (22-29) 07/06/24 03:45 Anion Gap 12.8 (5-19) 07/06/24 03:45 BUN 13 mg/dL (8-23) 07/06/24 03:45 Creatinine 0.4 mg/dL (0.7-1.2) L 07/06/24 03:45 GFR Calculation Not Reportable 07/06/24 03:45 Treatment plan:: new consult Regimen:: 1500 mg q12h
--- NOTE | 2024-07-06 13:17 | P.PN_ITS ---
Subjective 2 Subjective: seen today has not had a bm passing some flatus wbc 22K ct imaging reviewed from yesterday called gen surgery for re-eval, Vitals/I&O/Wt Last Vital Signs Temp 98.4 F 07/05/24 00:30 Pulse 76 07/06/24 08:00 Resp 21 H 07/06/24 08:00 BP 166/83 07/06/24 08:00 Pulse Ox 92 07/06/24 04:00 O2 Del Method Room Air 07/05/24 09:00 O2 Flow Rate 1 07/02/24 08:55 07/05/24 07/06/24 07/06/24 22:59 06:59 14:59 Intake Total 216.667 / 266.667 50 / 316.667 700 / 700 Output Total 1650 / 1650 550 / 2200 Balance -1433.333 / -1383.333 -500 / -1883.333 700 / 700 Weight last 48 hrs Weight 83.007 kg Weight 82.464 kg Physical Exam 2 Narrative: sitting up in chair, NG tube clamped CV regular rate and rhythm Lungs clear to auscultation bilaterally Abdomen, soft, tender to palpation around incision as expected, distended abdomen, bowel sounds now present no edema b/l le Mood and affect normal Urinary Catheter Management: Arroyo Latex: Cath Placed During This Visit: yes Reason for Continuing Indwelling Catheter: Accurate Measurement of Urinary Output in Critically Ill Patients Urinary Catheter Date of Insertion: 07/01/24 Urinary Catheter Time of Insertion: 11:10 Data 07/06/24 03:45 07/06/24 03:45 A&P Assessment and plan (1) Small bowel obstruction: Continue NG tube to low intermittent wall suction. Patient has been seen by Dr. Sinclair who will following evaluation for potential need for surgery. We are continuing with conservative care with NG tube for now due to high risk of recurrence with multiple abdominal surgeries (2) Carotid artery disease: Stable (3) Nicotine dependence, cigarettes, with other nicotine-induced disorders: Patient is a smoker 1 pack/day he declines nicotine patch (4) Atherosclerotic heart disease of [place] coronary artery with other forms of angina pectoris: Stable (5) Status post exploratory laparotomy: (6) Adhesion of intestine: (7) S/P laparotomy with lysis of adhesions: (8) Ileus: (9) Leukocytosis: (10) Absent bowel sounds: (11) Hypertensive urgency: Plan 06/30/2024 plan for gastrograffin study today repeat KUB at 11 gen surg on board await recommendations add hydralazine 10 iv q4h as needed for SBP > 160 continue to hold aspirin plavix in case of surgery pt npo at this time, once clear from surgical standpoint to start diet, will order home medications 07/01/2024 Plan for exploratory laparotomy today. Will check labs. Unable to physically see patient prior to surgery today. I will visit with him once he is back from procedure. Reviewed chart spoke to nursing staff and general surgeon. 07/02/2024 continue NPO status except half cup of ice chips continue NG tube LIWS no diet advancement till clearance from gen surgery possibility of prolonged ileus, significant adhesions in ex lap, see operative note wbc 18K, continue to monitor continue zosyn check cbc, cmp in AM pain mgmt hydralazine 5 iv q4h PRN 07/03/2024 continue npo status continue ng tube no diet advancement till clearance from gen surgery prolonged ileus check labs today hydralazine 10 iv q4h prn pain mgmt 07/04/2024 continue npo status, once pt able to pass flatus, advance diet as per gen surg pt transferred to icu last night for cardene ggt once able to resume oral meds, will restart home antihypertensives keep bp 150-160 range stop cardene, switch to hydralazine 20 q6h wbc 18K today continue to monitor continue zosyn 07/05/2024 Continue n.p.o. status Once patient able to pass flatus advance diet as per general surgery Wean off Cardene. Switch to hydralazine 20 every 6 hours. WBC count 19,000 today. Continue to monitor Recheck CT abdomen pelvis with IV contrast for reevaluation. place picc line start tpn check bmp, mag, phos daily pt maybe at risk of refeeding discussed with dr. sinclair 07/06/2024 wbc elevated Continue TPN Patient did pass gas Check BMP mag phosphorus daily CT abdomen pelvis with IV contrast results reviewed. WBC count up to 22,000 at this point. Continue on meropenem Add vancomycin Appreciate recommendations from general surgery. Continue hydralazine 20 IV every 6 hours as needed PDMP PDMP Reviewed: Not Reviewed Attestations 2 Medical Necessity Statement*: prolonged ileus, s/p ex lap Diagnoses Small bowel obstruction K56.609 Bilateral carotid artery disease, unspecified type I77.9 Carotid artery disease type: unspecified Laterality: bilateral Nicotine dependence, cigarettes, with other nicotine-induced disorders F17.218 Atherosclerotic heart disease of [place] coronary artery with other forms of angina pectoris I25.118 Status post exploratory laparotomy Z98.890 Adhesion of intestine K66.0 S/P laparotomy with lysis of adhesions Z98.890 Ileus K56.7 Leukocytosis D72.829 Absent bowel sounds R19.11 Hypertensive urgency I16.0
[2024-07-06] MEDS: lanolin oint 7 gm 1 APPLIC TOPICAL (13:29)
--- NOTE | 2024-07-06 14:48 | XR_ITS ---
WS: [id number] Exam: XR abdomen 1V* [id number] Date/Time of Exam: 07/06/2024 2:55 PM Reason For Exam: s/p gastrografin for ileus. Comparison 07/05/2024. Gastrografin has been administered and is present in both large and small bowel loops. This would indicate patency of the bowel. There are several moderately dilated small bowel loops which are thought to represent adynamic ileus. An enteric tube is noted in the stomach probably ending in the region of the pylorus. Midline surgical skin clips. The stomach still contains water-soluble contrast. XR/XR abdomen 1V* [id number] IMPRESSION: 1. Water-soluble contrast noted in the RIGHT colon indicating gross patency of the small bowel. There is some dilatation of small bowel loops thought to repre sent adynamic postop ileus.
--- NOTE | 2024-07-06 15:45 | PM.MISC ---
Miscellaneous Note Purpose of Documentation: Update on patient care Note: Patient has been doing well today. Good bowel sounds and has been passing gas. Around noon today I proceeded to administer 120 mL of Gastrografin diluted in 50 cc of water. By 2:30 PM patient had already had a bowel movement, liquid. This was followed by a second bowel movement around 1 hour later. X-ray of the abdomen obtained at the time showed evidence of contrast material all the way down in the colon, indicating patency of the small bowel. There was still contrast material in the stomach and some dilated loops of bowel which indicates a persistent postop ileus. No other concerning features no free air no leakage of contrast material from the intestine. Findings are appreciated, patient was informed of the findings. The plan is to continue NG tube to be clamped until tomorrow morning at the time I will obtain another x-ray of the abdomen, he will the contrast has slipped the stomach and the patient continues to feel well we will proceed with NG tube removal and will allow the patient to have sips and ice chips. Patient shows understanding agrees with the plan. As of today, patient can have a quarter of a cup of ice chips per shift to movement in the mouth moist and for comfort.
--- NOTE | 2024-07-06 16:56 | PC.NURSE ---
Pt has already finished the quarter of cup of ice he received at 1540. Per Dr Hough pt may have a quarter cup of ice each shift. Pt is telling nurse his ice did not last because it evaporated.
--- NOTE | 2024-07-06 19:26 | PC.NURSE ---
Shift summary: Pt has sat up in chair for entire shift. He has begged for water and/or ice entire shift also. Mouth swabs in cold water offered frequently. No Nausea or vomiting noted. NG clamped at noon for Gastrogafin. He has tolerated that well. After the xray, Dr Hough allowed a little bit of ice which pt polished off quickly. Cardene gtt still infusing at 2.5 mg/hr. He finished off the first 2 potassium replacements this am. Another 2 KCL replacements ordered, the first bag infusing. Pt has had at least 5 Bms this afternoon. All loose/liquid and green. Sample sent to lab for C-diff check. 500ml of urine output noted. Pt has denied need for pain med throughout shift.
[2024-07-06 20:09] LABS: C.Diff PCR (Lab) NEGATIVE (Negative)
[2024-07-06] MEDS: LORazepam 2 mg/mL INJ 1 mL 0.5 MG IVP (21:34)
[2024-07-06] MEDS: LORazepam 1 MG/0.5 ML injection (21:34)
[2024-07-07] VITALS (18 sets, daily range): BP systolic 134–181; BP diastolic 66–96; PULSE 59–88; RESP 18–26; TEMP 36.4–36.7; O2SAT 92–97
[2024-07-07] MEDS: MEROPENEM 2,000 MG in sodium chloride 0.9% (plus) 50 ML 100 MG IV ×3 (01:23→17:12)
[2024-07-07 03:34] LABS: Basophils # 0.1 10^3/uL (0.0-0.1); Basophils % 0.3 %; Eosinophils # 0.3 10^3/uL (0.0-0.8); Eosinophils % 1.3 %; Hematocrit 44.1 % (37-53); Lymphocytes # 0.9 10^3/uL (0.8-4.8); Lymphocytes % 3.5 %; Mean Corpuscular HGB Conc 33.6 g/dL (30-55); Mean Corpuscular Hemoglobin 33.5 pg (27-33); Mean Corpuscular Volume 99.8 fl (82-101); Mean Platelet Volume 9.8 fL (7.4-10.4); Monocytes # 1.3 10^3/uL (0.2-0.9); Monocytes % 5.3 %; Neutrophils # 21.76 10^3/uL (1.8-7.7); Neutrophils % 88.5 %; Nucleated Red Blood Cells % 0 %; Platelet Count 432 10^3/cmm (157-399); Red Blood Count 4.42 10^6/uL (3.85-5.65); Red Cell Distribution Width 13.9 % (12.1-15.1); White Blood Count 24.57 10^3/uL (3.29-11.43)
[2024-07-07 03:59] LABS: Alanine Aminotransferase 29 U/L (0-41); Albumin Level 2.8 g/dL (3.5-5.2); Alkaline Phosphatase 65 U/L (40-130); Anion Gap 15.9 (5-19); Aspartate Amino Transferase 29 U/L (0-40); Blood Urea Nitrogen 16 mg/dL (8-23); Calcium 8.4 mg/dL (8.5-10.5); Carbon Dioxide 23 mmol/L (22-29); Chloride 107 mmol/L (98-107); Creatinine Clr Calc Pharmacy 94.3849; Globulin 2.3 g/dL (1.3-4.6); Glucose 76 mg/dL (65-115); Magnesium 1.9 mg/dL (1.7-2.3); Osmolality Calculated 294 mOsm/kg (285-295); Potassium 3.9 mmol/L (3.5-5.1); Sodium 142 mmol/L (136-145); Total Bilirubin 0.5 mg/dL (0.15-1.2); Total Protein 5.1 g/dL (6.6-8.7)
--- NOTE | 2024-07-07 04:00 | XRR_ITS ---
PROCEDURE INFORMATION: Exam: XR Abdomen Exam date and time: 07/07/2024 3:14 AM Age: 73 years old Clinical indication: Constipation; Additional info: F/u gastrografin for ileus, has had multiple bms TECHNIQUE: Imaging protocol: Radiologic exam of the abdomen. Views: Frontal supine view of the abdomen. 1 View. COMPARISON: CR XR abdomen 1V* [id number] 07/06/2024 3:00 PM FINDINGS: Gastrointestinal tract: Persistent gaseous distension of bowel. Oral contrast is present within the majority of the large bowel. Bones/joints: No distinct acute osseous findings. Soft tissues: Midline cutaneous jean-pierre. XR/XR abdomen 1V* [id number] IMPRESSION: 1. Persistent gaseous distension of bowel. 2. Oral contrast is present within the majority of the large bowel.
[2024-07-07 04:07] LABS: C Reactive Protein 33.9 mg/L (0.0-4.9); Lactate (Lactic Acid level) 0.8 mmol/L (0.5-2.2)
--- NOTE | 2024-07-07 06:58 | P.PN_ITS ---
Subjective 2 Subjective: 73-year-old male who is possible active day 6 status post oratory laparotomy with major lysis of additions for small bowel obstruction. Patient has had a protracted postoperative course complicated with a prolonged postoperative ileus. He received a scan of the abdomen pelvis 48 hours ago that was concerning for repair any of the bowel sound findings suggesting possible pneumatosis of the ascending colon and a fluid collection in the pelvis. After my evaluation we decided that pneumatosis findings are likely artifactual and patient has continued to show clinical improvement and therefore we proceeded with a Gastrografin trial. Gastrografin trial was positive, after administration of Gastrografin patient had more than 5 loose green bowel movements, no melena. He has been passing significant amount of gas his abdominal distention has improved and he is feeling much better this morning. Vitals/I&O/Wt Last Vital Signs Temp 98.4 F 07/06/24 13:00 Pulse 88 07/07/24 04:00 Resp 19 H 07/07/24 03:00 BP 163/86 07/07/24 03:00 Pulse Ox 95 07/07/24 04:00 O2 Del Method Room Air 07/06/24 16:00 O2 Flow Rate 1 07/02/24 08:55 07/06/24 07/06/24 07/07/24 14:59 22:59 06:59 Intake Total 800 / 800 500 / 1300 50 / 1350 Output Total 1270 / 1270 650 / 1920 Balance 800 / 800 -770 / 30 -600 / -570 Weight last 48 hrs Weight 186 lb Weight 183 lb Physical Exam 2 GI: OTHER: Abdominal examination is benign the abdomen is soft no longer distended, nontender surgical incision is healing well there is good bowel sounds Urinary Catheter Management: Arroyo Latex: Cath Placed During This Visit: yes Reason for Continuing Indwelling Catheter: Accurate Measurement of Urinary Output in Critically Ill Patients Urinary Catheter Date of Insertion: 07/01/24 Urinary Catheter Time of Insertion: 11:10 Data 07/07/24 03:03 07/07/24 03:03 A&P Assessment and plan (1) Small bowel obstruction: (2) Status post exploratory laparotomy: (3) Adhesion of intestine: (4) Ileus: Plan Clinically patient is having an excellent progression. He is now passing gas had had several bowel movements has no abdominal pain whatsoever no fever no chills vital signs are stable. He is NG tube was removed this morning, I did check a residual before removing NG tube and it was only 200 cc after 24 hours of having the tube clamped. While his white count has continued to trend up lactate level is normal and CRP is around [place] and has not significantly trended up since initial measurement. At this point we will continue with clinical advancement, will allow the patient to have sips and chips as well as p.o. meds. If the white can continue to trend up in the next 24 hours or we see any signs of clinical worsening we might decide to rescan the abdomen tomorrow morning and decide if there is any indication for IR drainage of the pelvic fluid collection. In the meantime the most important thing for the patient will be to ambulate as tolerated. His Arroyo catheter can remain in until he is ambulating and off the bed. He is okay to resume DVT prophylaxis from my standpoint. I appreciate all other management per medical team PDMP PDMP Reviewed: Not Reviewed Attestations 2 Medical Necessity Statement*: Per medical team Coding Level of Care Code Acute Code for Chg Fwd Diagnoses Small bowel obstruction K56.609 Status post exploratory laparotomy Z98.890 Adhesion of intestine K66.0 Ileus K56.7
[2024-07-07] MEDS: famotidine 20 mg/2 mL INJ IVP ×2 (08:22→21:21)
[2024-07-07] MEDS: enoxaparin 40 mg/0.4 mL Syringe SUBCUT (08:28)
[2024-07-07] MEDS: vancomycin 1,500 MG/300 ML PIGGYBACK 200 MG IV (08:30)
[2024-07-07] MEDS: isosorbide mononitrate ER 60 mg Tablet PO (10:29)
[2024-07-07] MEDS: amlodipine 5 mg Tablet PO (10:29)
--- NOTE | 2024-07-07 11:06 | PC.SOCIAL ---
IMM Updated Updated pt on IMM. No questions voiced. Provided pt a copy. Initialed, dated, & timed copy in chart.
[2024-07-07] MEDS: AA-Dex 8%-10% w/ lytes 1,000 ML with multivitamin inj 10 ML 82 ML IV (13:04)
--- NOTE | 2024-07-07 13:34 | P.PN_ITS ---
Subjective 2 Subjective: Seen this morning. Patient has had several bowel movements in the last 24 hours. He is also passing gas NG tube has been removed Blood count 24,000 Running on 2.5 of Cardene drip. Vitals/I&O/Wt Last Vital Signs Temp 98.4 F 07/06/24 13:00 Pulse 73 07/07/24 08:00 Resp 19 H 07/07/24 03:00 BP 169/75 07/07/24 09:00 Pulse Ox 95 07/07/24 09:00 O2 Del Method Room Air 07/06/24 16:00 O2 Flow Rate 1 07/02/24 08:55 07/06/24 07/07/24 07/07/24 22:59 06:59 14:59 Intake Total 800 / 1600 50 / 1650 300 / 300 Output Total 1270 / 1270 650 / 1920 Balance -470 / 330 -600 / -270 300 / 300 Weight last 48 hrs Weight 84.368 kg Weight 83.007 kg Physical Exam 2 Narrative: sitting up in chair, NG tube clamped CV regular rate and rhythm Lungs clear to auscultation bilaterally Abdomen, soft, tender to palpation around incision as expected, distended abdomen, bowel sounds now present no edema b/l le Mood and affect normal Urinary Catheter Management: Arroyo Latex: Cath Placed During This Visit: yes Reason for Continuing Indwelling Catheter: Accurate Measurement of Urinary Output in Critically Ill Patients Urinary Catheter Date of Insertion: 07/01/24 Urinary Catheter Time of Insertion: 11:10 Data 07/07/24 03:03 07/07/24 03:03 A&P Assessment and plan (1) Small bowel obstruction: Continue NG tube to low intermittent wall suction. Patient has been seen by Dr. Sinclair who will following evaluation for potential need for surgery. We are continuing with conservative care with NG tube for now due to high risk of recurrence with multiple abdominal surgeries (2) Carotid artery disease: Stable (3) Nicotine dependence, cigarettes, with other nicotine-induced disorders: Patient is a smoker 1 pack/day he declines nicotine patch (4) Atherosclerotic heart disease of [place] coronary artery with other forms of angina pectoris: Stable (5) Status post exploratory laparotomy: (6) Adhesion of intestine: (7) S/P laparotomy with lysis of adhesions: (8) Ileus: (9) Leukocytosis: (10) Absent bowel sounds: (11) Hypertensive urgency: Plan 06/30/2024 plan for gastrograffin study today repeat KUB at 11 gen surg on board await recommendations add hydralazine 10 iv q4h as needed for SBP > 160 continue to hold aspirin plavix in case of surgery pt npo at this time, once clear from surgical standpoint to start diet, will order home medications 07/01/2024 Plan for exploratory laparotomy today. Will check labs. Unable to physically see patient prior to surgery today. I will visit with him once he is back from procedure. Reviewed chart spoke to nursing staff and general surgeon. 07/02/2024 continue NPO status except half cup of ice chips continue NG tube LIWS no diet advancement till clearance from gen surgery possibility of prolonged ileus, significant adhesions in ex lap, see operative note wbc 18K, continue to monitor continue zosyn check cbc, cmp in AM pain mgmt hydralazine 5 iv q4h PRN 07/03/2024 continue npo status continue ng tube no diet advancement till clearance from gen surgery prolonged ileus check labs today hydralazine 10 iv q4h prn pain mgmt 07/04/2024 continue npo status, once pt able to pass flatus, advance diet as per gen surg pt transferred to icu last night for cardene ggt once able to resume oral meds, will restart home antihypertensives keep bp 150-160 range stop cardene, switch to hydralazine 20 q6h wbc 18K today continue to monitor continue zosyn 07/05/2024 Continue n.p.o. status Once patient able to pass flatus advance diet as per general surgery Wean off Cardene. Switch to hydralazine 20 every 6 hours. WBC count 19,000 today. Continue to monitor Recheck CT abdomen pelvis with IV contrast for reevaluation. place picc line start tpn check bmp, mag, phos daily pt maybe at risk of refeeding discussed with dr. sinclair 07/06/2024 wbc elevated Continue TPN Patient did pass gas Check BMP mag phosphorus daily CT abdomen pelvis with IV contrast results reviewed. WBC count up to 22,000 at this point. Continue on meropenem Add vancomycin Appreciate recommendations from general surgery. Continue hydralazine 20 IV every 6 hours as needed 07/07/2024 Continue patient on TPN WBC elevated Has had bowel movements. Diet advanced to sips chips and meds. WBC count 24,000 Restart home antihypertensives, carvedilol, isosorbide mononitrate. Discontinue nicardipine drip, as needed hydralazine. Add amlodipine 5 daily May transfer to [facility] floor today Plan to repeat imaging in a.m. to evaluate for intra-abdominal fluid collection. That may need to be drained and may be source of leukocytosis. PDMP PDMP Reviewed: Not Reviewed Attestations 2 Medical Necessity Statement*: Requires continued hospitalization for postop ileus Diagnoses Small bowel obstruction K56.609 Bilateral carotid artery disease, unspecified type I77.9 Carotid artery disease type: unspecified Laterality: bilateral Nicotine dependence, cigarettes, with other nicotine-induced disorders F17.218 Atherosclerotic heart disease of [place] coronary artery with other forms of angina pectoris I25.118 Status post exploratory laparotomy Z98.890 Adhesion of intestine K66.0 S/P laparotomy with lysis of adhesions Z98.890 Ileus K56.7 Leukocytosis D72.829 Absent bowel sounds R19.11 Hypertensive urgency I16.0
--- NOTE | 2024-07-07 17:08 | PC.NURSE ---
Infusion rate typo in chart. Pt TPN is actually running at 23mL/Hr. Rate changed to 43mL/Hr at 1710 due to increasing by 20mL/hr after 4hrs.
[2024-07-07] MEDS: carvedilol 6.25 mg Tablet PO (17:12)
[2024-07-07 20:38] LABS: Vancomycin Trough 10.5 ug/mL (10-15)
[2024-07-07] MEDS: vancomycin 1,750 MG/350 ML PIGGYBACK 200 MG IV (21:21)
[2024-07-07] MEDS: trazodone 50 mg Tablet PO (21:21)
[2024-07-08 00:23] LABS: Alanine Aminotransferase 22 U/L (0-41); Albumin Level 2.4 g/dL (3.5-5.2); Alkaline Phosphatase 51 U/L (40-130); Anion Gap 9.3 (5-19); Aspartate Amino Transferase 27 U/L (0-40); Blood Urea Nitrogen 17 mg/dL (8-23); Calcium 7.7 mg/dL (8.5-10.5); Carbon Dioxide 28 mmol/L (22-29); Chloride 99 mmol/L (98-107); Creatinine Clr Calc Pharmacy 95.0181; Globulin 2.2 g/dL (1.3-4.6); Glucose 148 mg/dL (65-115); Magnesium 1.7 mg/dL (1.7-2.3); Osmolality Calculated 280 mOsm/kg (285-295); Phosphorus 1.8 mg/dL (2.5-4.5); Potassium 3.3 mmol/L (3.5-5.1); Sodium 133 mmol/L (136-145); Total Bilirubin 0.4 mg/dL (0.15-1.2); Total Protein 4.6 g/dL (6.6-8.7)
[2024-07-08] MEDS: AA-Dex 8%-10% w/ lytes 1,000 ML with multivitamin inj 10 ML 63 ML IV (00:50)
[2024-07-08] MEDS: MEROPENEM 2,000 MG in sodium chloride 0.9% (plus) 50 ML 100 MG IV ×3 (00:50→17:51)
[2024-07-08] MEDS: magnesium sulfate premix 2 GM/50 ML PIGGYBACK IV (01:52)
[2024-07-08] MEDS: potassium phosphate (mEq K) 40 MEQ in sodium chloride 0.9% (100 ml) 100 ML 27.25 MEQ IV (01:53)
[2024-07-08 04:00] VITALS: BP 157/80; PULSE 64; RESP 18; TEMP 36.4; O2SAT 91
[2024-07-08 06:06] LABS: Basophils % 0.2 %; Eosinophils # 0.1 10^3/uL (0.0-0.8); Eosinophils % 0.6 %; Hematocrit 39.5 % (37-53); Lymphocytes # 0.7 10^3/uL (0.8-4.8); Lymphocytes % 3.8 %; Mean Corpuscular HGB Conc 33.9 g/dL (30-55); Mean Corpuscular Hemoglobin 33.5 pg (27-33); Mean Corpuscular Volume 98.8 fl (82-101); Mean Platelet Volume 9.5 fL (7.4-10.4); Monocytes # 1.1 10^3/uL (0.2-0.9); Monocytes % 5.9 %; Neutrophils # 17.09 10^3/uL (1.8-7.7); Neutrophils % 88.5 %; Nucleated Red Blood Cells % 0 %; Platelet Count 390 10^3/cmm (157-399); Red Cell Distribution Width 13.5 % (12.1-15.1); White Blood Count 19.31 10^3/uL (3.29-11.43)
[2024-07-08 06:26] LABS: Lactate (Lactic Acid level) 0.8 mmol/L (0.5-2.2)
[2024-07-08 06:27] LABS: Anion Gap 8.7 (5-19); Blood Urea Nitrogen 17 mg/dL (8-23); C Reactive Protein 19.1 mg/L (0.0-4.9); Calcium 7.9 mg/dL (8.5-10.5); Carbon Dioxide 28 mmol/L (22-29); Chloride 102 mmol/L (98-107); Creatinine Clr Calc Pharmacy 91.1772; Glucose 173 mg/dL (65-115); Osmolality Calculated 286 mOsm/kg (285-295); Potassium 3.7 mmol/L (3.5-5.1); Sodium 135 mmol/L (136-145)
[2024-07-08 06:31] LABS: Phosphorus 3.6 mg/dL (2.5-4.5)
--- NOTE | 2024-07-08 06:45 | P.PN_ITS ---
Subjective 2 Subjective: Seen this morning. Had another bowel movement. Feeling slightly better. White count down to 19,000 Creatinine 0.4 C-reactive protein 19.1. Says he feels really thirsty. TPN has been ordered. Vitals/I&O/Wt Last Vital Signs Temp 97.8 F 07/08/24 07:46 Pulse 63 07/08/24 07:46 Resp 16 07/08/24 07:46 BP 178/82 07/08/24 07:46 Pulse Ox 92 07/08/24 07:46 O2 Del Method Room Air 07/08/24 07:46 O2 Flow Rate 1 07/02/24 08:55 07/07/24 07/08/24 07/08/24 22:59 06:59 14:59 Intake Total 2213.417 / 2713.688 716.3060 / 3617.9579 240 / 240 Output Total 2400 / 2400 Balance 2213.417 / 2713.417 -1495.4591 / 1217.9579 240 / 240 Weight last 48 hrs Weight 76.113 kg Weight 84.368 kg Physical Exam 2 Narrative: sitting up in chair, NG tube has been removed. CV regular rate and rhythm Lungs clear to auscultation bilaterally Abdomen, soft, tender to palpation around incision as expected, distended abdomen, bowel sounds now present no edema b/l le Mood and affect normal Urinary Catheter Management: Arroyo Latex: Cath Placed During This Visit: yes Reason for Continuing Indwelling Catheter: Other Urinary Catheter Date of Insertion: 07/01/24 Urinary Catheter Time of Insertion: 11:10 Data 07/08/24 05:45 07/08/24 05:45 A&P Assessment and plan (1) Small bowel obstruction: Continue NG tube to low intermittent wall suction. Patient has been seen by Dr. Sinclair who will following evaluation for potential need for surgery. We are continuing with conservative care with NG tube for now due to high risk of recurrence with multiple abdominal surgeries (2) Carotid artery disease: Stable (3) Nicotine dependence, cigarettes, with other nicotine-induced disorders: Patient is a smoker 1 pack/day he declines nicotine patch (4) Atherosclerotic heart disease of [place] coronary artery with other forms of angina pectoris: Stable (5) Status post exploratory laparotomy: (6) Adhesion of intestine: (7) S/P laparotomy with lysis of adhesions: (8) Ileus: (9) Leukocytosis: (10) Absent bowel sounds: (11) Hypertensive urgency: Plan 06/30/2024 plan for gastrograffin study today repeat KUB at 11 gen surg on board await recommendations add hydralazine 10 iv q4h as needed for SBP > 160 continue to hold aspirin plavix in case of surgery pt npo at this time, once clear from surgical standpoint to start diet, will order home medications 07/01/2024 Plan for exploratory laparotomy today. Will check labs. Unable to physically see patient prior to surgery today. I will visit with him once he is back from procedure. Reviewed chart spoke to nursing staff and general surgeon. 07/02/2024 continue NPO status except half cup of ice chips continue NG tube LIWS no diet advancement till clearance from gen surgery possibility of prolonged ileus, significant adhesions in ex lap, see operative note wbc 18K, continue to monitor continue zosyn check cbc, cmp in AM pain mgmt hydralazine 5 iv q4h PRN 07/03/2024 continue npo status continue ng tube no diet advancement till clearance from gen surgery prolonged ileus check labs today hydralazine 10 iv q4h prn pain mgmt 07/04/2024 continue npo status, once pt able to pass flatus, advance diet as per gen surg pt transferred to icu last night for cardene ggt once able to resume oral meds, will restart home antihypertensives keep bp 150-160 range stop cardene, switch to hydralazine 20 q6h wbc 18K today continue to monitor continue zosyn 07/05/2024 Continue n.p.o. status Once patient able to pass flatus advance diet as per general surgery Wean off Cardene. Switch to hydralazine 20 every 6 hours. WBC count 19,000 today. Continue to monitor Recheck CT abdomen pelvis with IV contrast for reevaluation. place picc line start tpn check bmp, mag, phos daily pt maybe at risk of refeeding discussed with dr. sinclair 07/06/2024 wbc elevated Continue TPN Patient did pass gas Check BMP mag phosphorus daily CT abdomen pelvis with IV contrast results reviewed. WBC count up to 22,000 at this point. Continue on meropenem Add vancomycin Appreciate recommendations from general surgery. Continue hydralazine 20 IV every 6 hours as needed 07/07/2024 Continue patient on TPN WBC elevated Has had bowel movements. Diet advanced to sips chips and meds. WBC count 24,000 Restart home antihypertensives, carvedilol, isosorbide mononitrate. Discontinue nicardipine drip, as needed hydralazine. Add amlodipine 5 daily [facility] Plan to repeat imaging in a.m. to evaluate for intra-abdominal fluid collection. That may need to be drained and may be source of leukocytosis. 07/08/2024 Continue patient on TPN today Transition to clear liquid diet. Able to have Jell-O today. White count trending down to 19,000 today. Continue home antihypertensives. BP much better compared to previous days Will continue to hold off on olmesartan. Will restart within 24 to 48 hours. Plan to possibly repeat imaging in a.m. to evaluate for intra-abdominal fluid collection. Discussed with general surgeon on-call. Clinically patient is improving. Encourage ambulation PDMP PDMP Reviewed: Not Reviewed Attestations 2 Medical Necessity Statement*: Requires continued hospitalization for postop ileus Diagnoses Small bowel obstruction K56.609 Bilateral carotid artery disease, unspecified type I77.9 Carotid artery disease type: unspecified Laterality: bilateral Nicotine dependence, cigarettes, with other nicotine-induced disorders F17.218 Atherosclerotic heart disease of [place] coronary artery with other forms of angina pectoris I25.118 Status post exploratory laparotomy Z98.890 Adhesion of intestine K66.0 S/P laparotomy with lysis of adhesions Z98.890 Ileus K56.7 Leukocytosis D72.829 Absent bowel sounds R19.11 Hypertensive urgency I16.0
--- NOTE | 2024-07-08 07:04 | P.PN_ITS ---
Subjective 2 Subjective: 73-year-old male status post ex lap for SBO. He has seen significant improvement over the last 24 hours. Tolerating water and chips with no issues, has continued to pass gas and have bowel movements. Normal vital signs. Vitals/I&O/Wt Last Vital Signs Temp 97.6 F 07/08/24 04:00 Pulse 64 07/08/24 04:00 Resp 18 07/08/24 04:00 BP 157/80 07/08/24 04:00 Pulse Ox 91 07/08/24 04:00 O2 Del Method Room Air 07/08/24 04:00 O2 Flow Rate 1 07/02/24 08:55 07/07/24 07/08/24 07/08/24 22:59 06:59 14:59 Intake Total 2213.417 / 2713.463 846.3283 / 3617.9579 Output Total 2400 / 2400 Balance 2213.417 / 2713.417 -1495.4591 / 1217.9579 Weight last 48 hrs Weight 167 lb 12.8 oz Weight 186 lb Physical Exam 2 GI: OTHER: The abdomen is soft, mildly distended, there is good bowel sounds, no significant rebound tenderness or peritonitis noted. Surgical incision is healing very well Urinary Catheter Management: Arroyo Latex: Cath Placed During This Visit: yes Reason for Continuing Indwelling Catheter: Other Urinary Catheter Date of Insertion: 07/01/24 Urinary Catheter Time of Insertion: 11:10 Data 07/08/24 05:45 07/08/24 05:45 A&P Assessment and plan (1) Small bowel obstruction: (2) Adhesion of intestine: (3) S/P laparotomy with lysis of adhesions: Plan Over the last 24 hours patient showing very good progression. Clinically improving, tolerating diet, having bowel movements. This morning his white count has trended down from 24-19 and the CRP is down to 19 from 33. All vitals are normal and the pulse rate is now in the 60s after resuming p.o. medication. The plan will be to allow the patient to have clears today. He will need to ambulate as much as possible to improve GI motility. If the waken continues to improve and clinically doing well and ambulating Arroyo catheter may be removed tomorrow morning. In the case of a persistently elevated white count or clinical worsening we will probably do a CT scan of the abdomen pelvis tomorrow. The goal for the patient will be to eventually be advanced to a full liquid diet as inpatient and he will go home on a full liquid diet for 2 weeks before attempting a GI soft diet. PDMP PDMP Reviewed: Not Reviewed Attestations 2 Medical Necessity Statement*: Per medical team Coding Level of Care Code Acute Code for Chg Fwd Diagnoses Small bowel obstruction K56.609 Adhesion of intestine K66.0 S/P laparotomy with lysis of adhesions Z98.890
[2024-07-08 07:46] VITALS: BP 178/82; PULSE 63; RESP 16; TEMP 36.6; O2SAT 92
[2024-07-08] MEDS: isosorbide mononitrate ER 60 mg Tablet PO (08:53)
[2024-07-08] MEDS: carvedilol 6.25 mg Tablet PO ×2 (08:53→17:49)
[2024-07-08] MEDS: enoxaparin 40 mg/0.4 mL Syringe SUBCUT (08:53)
[2024-07-08] MEDS: amlodipine 5 mg Tablet PO (08:53)
[2024-07-08] MEDS: polyethylene glycol 3350 Pkt 17 gm PO (08:53)
[2024-07-08] MEDS: AA-Dex 8%-10% w/ lytes 1,000 ML with multivitamin inj 10 ML 83 ML IV ×2 (09:00→20:29)
[2024-07-08] MEDS: vancomycin 1,750 MG/350 ML PIGGYBACK 200 MG IV ×2 (09:47→20:31)
[2024-07-08] MEDS: famotidine 20 mg/2 mL INJ IVP ×2 (11:13→20:29)
--- NOTE | 2024-07-08 11:16 | PC.CHAP ---
Pastoral Care Encounter/Spiritual Assessment Type of Contact [] Declined financial aid counselor visit [] Patient/Family/Request visit [] Outpatient visit [] Follow-up visit [] Physician referral [] Code/Alert [x] Routine visit [] Staff referral [] Actively dying [] Patient sleeping [] Family support [] [] Out of room [] Palliative care [] [] Receiving care in room [] Pre-surgical visit [] Trauma [] Long length of stay [] ICU visit [] Other: Relational/Emotional Strength [x] Patient feels connected with others/family/visitors/staff [] Distress [] Loneliness/isolation [] Abandonment Spirituality of Patient [x] Person of Diane [] Attends Evangelical of their Diane [x] Believes in Prayer [] Reads Bible or Orthodox materials [] There are Spiritual issues to be addressed [employer] Machine [employer] Interventions [x] Prayer [x] Active listening [x] Non-anxious presence [x] Spiritual/emotional support [] Crisis/trauma care [] Spiritual counseling [] Bereavement support [] Provided bereavement packet [] Provided Bible/devotional materials [] Provided toy/stuffed animal, coloring book to patient or family member [] Provided Communion [] Anointing/[place] [] Salvation [x] Completed spiritual assessment [] Other: Impact on Illness or Injury [] Angry [] Fearful [] Anxious [] Often cries [] Exhaustion [] Unable to work [] Unable to attend hoahaoism [] Unable to walk/stand [] Unable to read [] Unable to drive [] Unable to eat/drink [] Unable to sleep [] Unable to be with family [] Patient intubated [] Other: Summary Time spent with patient 10 min
[2024-07-08] MEDS: HYDROcodone-acetaminophen 5-325 mg Tablet 1 TAB PO (11:31)
[2024-07-08 11:40] VITALS: BP 144/74; PULSE 69; RESP 17; TEMP 36.9; O2SAT 95
--- NOTE | 2024-07-08 13:06 | PM.MISC ---
Miscellaneous Note Purpose of Documentation: Update on patient care Note: Ambulated, after ambulation he passed significant amount of gas and have a moderate-sized bowel movement. Other than that he is doing okay just mild abdominal distention now that he is eating clears but normal vital signs and in good spirits. He is going to continue to ambulate during the afternoon and will obtain morning labs tomorrow.
[2024-07-08 16:00] VITALS: BP 159/82; PULSE 70; RESP 16; TEMP 36.6; O2SAT 96
[2024-07-08 19:35] VITALS: BP 162/74; PULSE 58; RESP 16; TEMP 36.6; O2SAT 95
[2024-07-08] MEDS: trazodone 50 mg Tablet PO (20:29)
[2024-07-08 23:50] VITALS: BP 181/72; PULSE 58; RESP 17; TEMP 36.7; O2SAT 94
[2024-07-09] VITALS (8 sets, daily range): BP systolic 120–177; BP diastolic 56–85; PULSE 59–78; RESP 17–19; TEMP 36.3–37.1; O2SAT 90–98
[2024-07-09] MEDS: MEROPENEM 2,000 MG in sodium chloride 0.9% (plus) 50 ML 100 MG IV ×3 (00:10→15:58)
[2024-07-09 06:39] LABS: Basophils % 0.3 %; Eosinophils # 0.2 10^3/uL (0.0-0.8); Eosinophils % 1.1 %; Hematocrit 40.2 % (37-53); Lymphocytes # 0.7 10^3/uL (0.8-4.8); Lymphocytes % 5.1 %; Mean Corpuscular HGB Conc 33.3 g/dL (30-55); Mean Corpuscular Hemoglobin 33.2 pg (27-33); Mean Corpuscular Volume 99.5 fl (82-101); Mean Platelet Volume 9.7 fL (7.4-10.4); Monocytes # 1.1 10^3/uL (0.2-0.9); Monocytes % 7.8 %; Neutrophils # 12.28 10^3/uL (1.8-7.7); Neutrophils % 84.9 %; Nucleated Red Blood Cells % 0 %; Platelet Count 412 10^3/cmm (157-399); Red Blood Count 4.04 10^6/uL (3.85-5.65); Red Cell Distribution Width 13.5 % (12.1-15.1); White Blood Count 14.45 10^3/uL (3.29-11.43)
[2024-07-09 06:51] LABS: Lactate (Lactic Acid level) 1.1 mmol/L (0.5-2.2)
[2024-07-09 06:52] LABS: Anion Gap 8.8 (5-19); Blood Urea Nitrogen 22 mg/dL (8-23); Calcium 7.9 mg/dL (8.5-10.5); Carbon Dioxide 27 mmol/L (22-29); Chloride 102 mmol/L (98-107); Creatinine Clr Calc Pharmacy 91.1772; Glucose 175 mg/dL (65-115); Magnesium 1.8 mg/dL (1.7-2.3); Osmolality Calculated 286 mOsm/kg (285-295); Potassium 3.8 mmol/L (3.5-5.1); Sodium 134 mmol/L (136-145)
[2024-07-09 06:56] LABS: Phosphorus 2.2 mg/dL (2.5-4.5)
--- NOTE | 2024-07-09 07:55 | P.PN_ITS ---
Subjective 2 Subjective: Patient has had a very good progression over the last 24 hours. Vitals have remained stable. He has tolerated a clear liquid diet. Has had several bowel movements and significant amount of gas. Last bowel movement was at 11 PM last night. Minimal amount of nausea at night after He ate a popsicle right before going to sleep Vitals/I&O/Wt Last Vital Signs Temp 98.6 F 07/09/24 07:49 Pulse 78 07/09/24 07:49 Resp 18 07/09/24 07:49 BP 163/79 07/09/24 07:49 Pulse Ox 90 07/09/24 07:49 O2 Del Method Room Air 07/09/24 07:49 O2 Flow Rate 1 07/02/24 08:55 07/08/24 07/09/24 07/09/24 22:59 06:59 14:59 Intake Total 1713.117 / 3238.167 770 / 4008.167 Output Total 750 / 750 2175 / 2925 Balance 963.117 / 2488.167 -1405 / 1083.167 Weight last 48 hrs Weight 167 lb 12.8 oz Physical Exam 2 GI: OTHER: Abdominal examination is benign, the abdomen is soft, persistently distended, midline incision is healing very well, there is very good bowel sounds, there is minimal tenderness. Urinary Catheter Management: Arroyo Latex: Cath Placed During This Visit: yes Reason for Continuing Indwelling Catheter: Other Urinary Catheter Date of Insertion: 07/01/24 Urinary Catheter Time of Insertion: 11:10 Data 07/09/24 05:50 07/09/24 05:50 A&P Assessment and plan (1) Small bowel obstruction: (2) Status post exploratory laparotomy: Plan Patient showing very good progression over the last 48 hours. Clinically improving. Laboratory workup is also significantly improved his white count has trended down to 14, CRP is also consistently trending down. Physical examination is quite benign. At this point I think he will be a good candidate to advance diet to a full liquid diet, we will discontinue the Arroyo and have the patient ambulate as tolerated. If the patient tolerates a full liquid diet and is able to void he could be transition to the outpatient setting as early as tomorrow. We will obtain nutritional consultation to transition from TPN to full liquid diet as outpatient. In the outpatient setting patient is recommended to stay in a full liquid diet at least for 1 more week before attempting a GI soft diet. All other management per medical team is appreciated. Patient was informed of all the laboratory workup and findings and he is agreeable with the plan. PDMP PDMP Reviewed: Not Reviewed Attestations 2 Medical Necessity Statement*: Per medical team Coding Level of Care Code Acute Code for Chg Fwd Diagnoses Small bowel obstruction K56.609 Status post exploratory laparotomy Z98.890
--- NOTE | 2024-07-09 09:14 | PC.SOCIAL ---
IMM Update Pg 2 of IMM updated and reviewed with patient, who verbalized understanding. Copy provided.
[2024-07-09] MEDS: famotidine 20 mg/2 mL INJ IVP ×2 (09:23→20:35)
[2024-07-09] MEDS: amlodipine 5 mg Tablet PO (09:24)
[2024-07-09] MEDS: enoxaparin 40 mg/0.4 mL Syringe SUBCUT (09:24)
[2024-07-09] MEDS: isosorbide mononitrate ER 60 mg Tablet PO (09:24)
[2024-07-09] MEDS: carvedilol 6.25 mg Tablet PO ×2 (09:24→18:09)
[2024-07-09] MEDS: vancomycin 1,750 MG/350 ML PIGGYBACK 200 MG IV ×2 (09:28→20:36)
[2024-07-09 09:41] LABS: Vancomycin Trough 15.7 ug/mL (10-15)
--- NOTE | 2024-07-09 11:20 | PM.PN ---
Subjective Subjective: White count improved to 14,000 this morning. Patient has had another bowel movement. He has been walking. Phosphorus 2.2 C-reactive protein 9. Is excited to transition to full liquid diet today. Vitals/I&O/Wt Last Vital Signs Temp 98.6 F 07/09/24 07:49 Pulse 78 07/09/24 07:49 Resp 18 07/09/24 07:49 BP 163/79 07/09/24 07:49 Pulse Ox 90 07/09/24 07:49 O2 Del Method Room Air 07/09/24 07:49 O2 Flow Rate 1 07/02/24 08:55 07/08/24 07/09/24 07/09/24 22:59 06:59 14:59 Intake Total 1713.117 / 3238.167 770 / 4008.167 177 / 1769 Output Total 750 / 750 2175 / 2925 Balance 963.117 / 2488.167 -1405 / 7359.096 7874 / 1769 Weight last 48 hrs Weight 76.113 kg Physical Exam Narrative: sitting up in chair, appearing comfortable at this time. CV regular rate and rhythm Lungs clear to auscultation bilaterally Abdomen, soft, nontender to palpation, distended abdomen, good bowel sounds present. no edema b/l le Mood and affect normal Urinary Catheter Management: Arroyo Latex: Cath Placed During This Visit: yes Reason for Continuing Indwelling Catheter: Other Urinary Catheter Date of Insertion: 07/01/24 Urinary Catheter Time of Insertion: 11:10 Data 07/09/24 05:50 07/09/24 05:50 A&P Assessment and plan (1) Small bowel obstruction: Continue NG tube to low intermittent wall suction. Patient has been seen by Dr. Sinclair who will following evaluation for potential need for surgery. We are continuing with conservative care with NG tube for now due to high risk of recurrence with multiple abdominal surgeries (2) Carotid artery disease: Stable (3) Nicotine dependence, cigarettes, with other nicotine-induced disorders: Patient is a smoker 1 pack/day he declines nicotine patch (4) Atherosclerotic heart disease of [place] coronary artery with other forms of angina pectoris: Stable (5) Status post exploratory laparotomy: (6) Adhesion of intestine: (7) S/P laparotomy with lysis of adhesions: (8) Ileus: (9) Leukocytosis: (10) Absent bowel sounds: (11) Hypertensive urgency: Plan 06/30/2024 plan for gastrograffin study today repeat KUB at 11 gen surg on board await recommendations add hydralazine 10 iv q4h as needed for SBP > 160 continue to hold aspirin plavix in case of surgery pt npo at this time, once clear from surgical standpoint to start diet, will order home medications 07/01/2024 Plan for exploratory laparotomy today. Will check labs. Unable to physically see patient prior to surgery today. I will visit with him once he is back from procedure. Reviewed chart spoke to nursing staff and general surgeon. 07/02/2024 continue NPO status except half cup of ice chips continue NG tube LIWS no diet advancement till clearance from gen surgery possibility of prolonged ileus, significant adhesions in ex lap, see operative note wbc 18K, continue to monitor continue zosyn check cbc, cmp in AM pain mgmt hydralazine 5 iv q4h PRN 07/03/2024 continue npo status continue ng tube no diet advancement till clearance from gen surgery prolonged ileus check labs today hydralazine 10 iv q4h prn pain mgmt 07/04/2024 continue npo status, once pt able to pass flatus, advance diet as per gen surg pt transferred to icu last night for cardene ggt once able to resume oral meds, will restart home antihypertensives keep bp 150-160 range stop cardene, switch to hydralazine 20 q6h wbc 18K today continue to monitor continue zosyn 07/05/2024 Continue n.p.o. status Once patient able to pass flatus advance diet as per general surgery Wean off Cardene. Switch to hydralazine 20 every 6 hours. WBC count 19,000 today. Continue to monitor Recheck CT abdomen pelvis with IV contrast for reevaluation. place picc line start tpn check bmp, mag, phos daily pt maybe at risk of refeeding discussed with dr. sinclair 07/06/2024 wbc elevated Continue TPN Patient did pass gas Check BMP mag phosphorus daily CT abdomen pelvis with IV contrast results reviewed. WBC count up to 22,000 at this point. Continue on meropenem Add vancomycin Appreciate recommendations from general surgery. Continue hydralazine 20 IV every 6 hours as needed 07/07/2024 Continue patient on TPN WBC elevated Has had bowel movements. Diet advanced to sips chips and meds. WBC count 24,000 Restart home antihypertensives, carvedilol, isosorbide mononitrate. Discontinue nicardipine drip, as needed hydralazine. Add [facility]lodip[facility] 5 [facility] Plan to repeat imaging in a.m. to evaluate for intra-abdominal fluid collection. That may need to be drained and may be source of leukocytosis. 07/08/2024 Continue patient on TPN today Transition to clear liquid diet. Able to have Jell-O today. White count trending down to 19,000 today. Continue home antihypertensives. BP much better compared to previous days Will continue to hold off on olmesartan. Will restart within 24 to 48 hours. Plan to possibly repeat imaging in a.m. to evaluate for intra-abdominal fluid collection. Discussed with general surgeon on-call. Clinically patient is improving. Encourage ambulation 07/09/2024 Stop TPN Transition to full liquid diet. White count trending down to 14,000 Continue home antihypertensives ? Restart olmesartan home dose Hold off on repeat imaging today as patient is clinically improving. He has made very good progress. Discussed with on-call general surgeon. Encourage ambulation If patient continues to show progress and tolerates oral diet we may be able to discharge him home in next 24 to 48 hours Continue vancomycin meropenem. Strongly recommend antibiotics at discharge. Defer decision making to discharge physician PDMP PDMP Reviewed: Not Reviewed Attestations Medical Necessity Statement*: Requires continued hospitalization for postop ileus Diagnoses Small bowel obstruction K56.609 Bilateral carotid artery disease, unspecified type I77.9 Carotid artery disease type: unspecified Laterality: bilateral Nicotine dependence, cigarettes, with other nicotine-induced disorders F17.218 Atherosclerotic heart disease of [place] coronary artery with other forms of angina pectoris I25.118 Status post exploratory laparotomy Z98.890 Adhesion of intestine K66.0 S/P laparotomy with lysis of adhesions Z98.890 Ileus K56.7 Leukocytosis D72.829 Absent bowel sounds R19.11 Hypertensive urgency I16.0
[2024-07-09] MEDS: losartan 50 mg Tablet 100 MG PO (13:02)
--- NOTE | 2024-07-09 14:40 | PC.NURSE ---
dr sinclair ordered for patients catheter to be removed. this nurse done bladder training for 4 hours. nurse dc'd catheter at 1430, catheter intact upon removal. patient tolerated well.
[2024-07-09] MEDS: HYDROcodone-acetaminophen 5-325 mg Tablet 1 TAB PO ×2 (16:55→20:36)
[2024-07-09] MEDS: phosphorus 250 mg Tablet PO (18:09)
[2024-07-09] MEDS: trazodone 50 mg Tablet PO (20:36)
[2024-07-10] MEDS: MEROPENEM 2,000 MG in sodium chloride 0.9% (plus) 50 ML 100 MG IV ×3 (00:12→15:46)
[2024-07-10 04:00] VITALS: BP 159/66; PULSE 54; RESP 19; TEMP 36.4; O2SAT 93
[2024-07-10 04:44] LABS: Basophils # 0.1 10^3/uL (0.0-0.1); Basophils % 0.4 %; Eosinophils # 0.3 10^3/uL (0.0-0.8); Eosinophils % 1.9 %; Hematocrit 39.4 % (37-53); Lymphocytes % 6.4 %; Mean Corpuscular HGB Conc 32.7 g/dL (30-55); Mean Corpuscular Hemoglobin 33.8 pg (27-33); Mean Corpuscular Volume 103.1 fl (82-101); Mean Platelet Volume 9.8 fL (7.4-10.4); Monocytes # 1.3 10^3/uL (0.2-0.9); Monocytes % 8.7 %; Neutrophils # 12.23 10^3/uL (1.8-7.7); Neutrophils % 81.9 %; Nucleated Red Blood Cells % 0 %; Platelet Count 379 10^3/cmm (157-399); Red Blood Count 3.82 10^6/uL (3.85-5.65); Red Cell Distribution Width 13.8 % (12.1-15.1); White Blood Count 14.93 10^3/uL (3.29-11.43)
[2024-07-10 04:58] LABS: Lactate (Lactic Acid level) 0.7 mmol/L (0.5-2.2)
[2024-07-10 05:00] LABS: Phosphorus 2.4 mg/dL (2.5-4.5)
[2024-07-10 05:10] LABS: Anion Gap 9.4 (5-19); Blood Urea Nitrogen 16 mg/dL (8-23); C Reactive Protein 5.5 mg/L (0.0-4.9); Carbon Dioxide 28 mmol/L (22-29); Chloride 102 mmol/L (98-107); Creatinine Clr Calc Pharmacy 91.1772; Glucose 84 mg/dL (65-115); Magnesium 1.8 mg/dL (1.7-2.3); Osmolality Calculated 282 mOsm/kg (285-295); Potassium 3.4 mmol/L (3.5-5.1); Sodium 136 mmol/L (136-145)
[2024-07-10 07:44] VITALS: BP 159/66
[2024-07-10] MEDS: polyethylene glycol 3350 Pkt 17 gm PO (07:44)
[2024-07-10] MEDS: losartan 50 mg Tablet 100 MG PO (07:44)
[2024-07-10] MEDS: isosorbide mononitrate ER 60 mg Tablet PO (07:44)
[2024-07-10] MEDS: carvedilol 6.25 mg Tablet PO ×2 (07:44→17:36)
[2024-07-10] MEDS: amlodipine 5 mg Tablet PO (07:44)
[2024-07-10] MEDS: famotidine 20 mg/2 mL INJ IVP (07:44)
[2024-07-10] MEDS: phosphorus 250 mg Tablet PO (07:44)
[2024-07-10] MEDS: enoxaparin 40 mg/0.4 mL Syringe SUBCUT (07:45)
[2024-07-10 07:46] VITALS: BP 165/73; PULSE 62; RESP 16; TEMP 36.4; O2SAT 91
[2024-07-10] MEDS: vancomycin 1,750 MG/350 ML PIGGYBACK 200 MG IV ×2 (08:43→21:32)
--- NOTE | 2024-07-10 08:55 | P.PN_ITS ---
Subjective 2 Subjective: The patient was seen and evaluated at bedside this morning. He has had some clear fluid drainage from the inferior portion of his midline incision. It is leakage of fluid tends to happen after he stands up. He is tolerating a full liquid diet without nausea, vomiting, abdominal bloating, or abdominal pain. He has been having regular bowel movements. His Arroyo catheter was removed yesterday and he has been voiding without difficulty since that time. Vitals/I&O/Wt Last Vital Signs Temp 97.6 F 07/10/24 07:46 Pulse 62 07/10/24 07:46 Resp 16 07/10/24 07:46 BP 165/73 07/10/24 07:46 Pulse Ox 91 07/10/24 07:46 O2 Del Method Room Air 07/10/24 07:46 O2 Flow Rate 1 07/02/24 08:55 07/09/24 07/10/24 07/10/24 22:59 06:59 14:59 Intake Total 640 / 2770 170 / 2940 50 / 50 Balance 640 / 1920 170 / 2090 50 / 50 Physical Exam 2 Const: COMMON NORMALS: no acute distress and patient oriented x3 HENMT: COMMON NORMALS: normocephalic and atraumatic HEAD & SCALP: n ormocephalic and atraumatic Chest: COMMONS NORMALS: normal inspection of the chest Resp: COMMON NORMALS: normal respiratory effort and No use of accessory muscles GI: COMMON NORMALS: Soft to palpation and non-tender PALPATION: Yes Soft to palpation OTHER: Midline incision: Surgical jean-pierre intact. Dressing removed as it had clear fluid on it. Fluid appeared to be coming from the inferior portion of the incision, inferior to the umbilicus. A surgical staple was removed and the fluid was allowed to egress. Cotton tip applicator was utilized to gently probe the fascia which remained intact. Half- inch strip gauze was placed within the wound. Neuro: COMMON NORMALS: patient oriented x3 Urinary Catheter Management: Arroyo Latex: Cath Placed During This Visit: yes, but has since been removed by the nurse Reason for Continuing Indwelling Catheter: Other Urinary Catheter Date of Insertion: 07/01/24 Urinary Catheter Time of Insertion: 11:10 Date Urinary Catheter Removed: 07/09/24 Time Urinary Catheter Discontinued: 15:29 Data 07/10/24 03:31 07/10/24 03:31 A&P Assessment and plan (1) Small bowel obstruction: (2) S/P laparotomy with lysis of adhesions: -- Fluid coming from the inferior portion of the incision is not purulent or malodorous. The incision skin edges and adjacent skin are not erythematous or edematous. The site does not appear acutely infected. Surgical jean-pierre remain intact. I removed one of the surgical jean-pierre and with gentle probing with a cotton tip applicator the fascia at that site remained intact. -- Continue daily wound care. Irrigate wound and pack with half-inch strip gauze, cover with a outer sterile dressing. -- Otherwise abdominal exam benign, no tenderness to palpation, no rebound tenderness, and no guarding. -- May continue full liquid diet. -- Serial abdominal exams. -- Continue to monitor CBC. PDMP PDMP Reviewed: Not Reviewed Attestations 2 Medical Necessity Statement*: Further monitoring of vital signs, labs, hemodynamics, and abdominal exams. Coding Level of Care Code Acute Code for [facility] Fwd Diagnoses Small bowel obstruction K56.609 S/P laparotomy with lysis of adhesions Z98.890
--- NOTE | 2024-07-10 11:51 | PC.NURSE ---
Dr. Knight advised that surgical dressing was changed after her rounds today. Advised of amount of serous drng present.
[2024-07-10 11:52] VITALS: BP 105/65; PULSE 71; RESP 18; TEMP 36.7; O2SAT 94
[2024-07-10] MEDS: HYDROcodone-acetaminophen 5-325 mg Tablet 1 TAB PO ×2 (12:29→17:36)
[2024-07-10 15:28] VITALS: BP 162/73; PULSE 60; RESP 18; TEMP 36.9; O2SAT 91
--- NOTE | 2024-07-10 17:03 | P.PN_ITS ---
Subjective 2 Subjective: Patient states that his abdominal incision has started to leak. He states that when he stood up there was a considerable amount of leakage. He states the surgeon removed staple and packed it. He has no complaints while in bed. He is just anxious about further problems Vitals/I&O/Wt Last Vital Signs Temp 98.4 F 07/10/24 15:28 Pulse 60 07/10/24 15:28 Resp 18 07/10/24 15:28 BP 162/73 07/10/24 15:28 Pulse Ox 91 07/10/24 15:28 O2 Del Method Room Air 07/10/24 15:28 O2 Flow Rate 1 07/02/24 08:55 07/10/24 07/10/24 07/10/24 06:59 14:59 22:59 Intake Total 170 / 2940 640 / 640 50 / 690 Balance 170 / 2090 640 / 640 50 / 690 Physical Exam 2 Narrative: Alert and oriented to person place time and situation. He has mild anxiety regarding the incision leakage Heart regular normal S1-S2 without murmurs clicks gallops or rubs Lungs clear mildly diminished no wheezes rales or rhonchi Abdomen min midline scar on a protuberant abdomen from umbilicus to pubis. There is mild mostly dried discharge on bandage abdomen is soft nontender slightly distended Extremities no clubbing cyanosis or edema Urinary Catheter Management: Arroyo Latex: Cath Placed During This Visit: yes, but has since been removed by the nurse Reason for Continuing Indwelling Catheter: Other Urinary Catheter Date of Insertion: 07/01/24 Urinary Catheter Time of Insertion: 11:10 Date Urinary Catheter Removed: 07/09/24 Time Urinary Catheter Discontinued: 15:29 Data 07/10/24 03:31 07/10/24 03:31 A&P Assessment and plan (1) Small bowel obstruction: Status post exploratory lap with extensive lysis of adhesions on 06/28/2024 Drainage from incision site. Discussed with Dr. Knight who removed 1 staple and packed area. Discussed with RN who has changed the dressing twice. When I saw the dressing it had only a mild amount of serosanguineous drainage that was mostly dried (2) Nicotine dependence, cigarettes, with other nicotine-induced disorders: Patient is a smoker 1 pack/day he declines nicotine patch (3) Atherosclerotic heart disease of [place] coronary artery with other forms of angina pectoris: Stable (4) S/P laparotomy with lysis of adhesions: (5) Ileus: (6) Leukocytosis: Had been improving today very similar to yesterday Plan As per Dr. Knight she will assess clinically with serial exams. At this time patient is able to tolerate a liquid diet he has bowel sounds and having bowel movements. Given the necessity of frequent abdominal dressing changes and possible need for packing I recommended fdc placement for a few weeks since patient has no one who can assist him at home. I do not believe home health care would be sufficient to maintain this incision and drainage issue. Patient declines discussing this option any further. I have asked him to speak with family about options and he also declines that saying it is not an option Potassium is 3.3 will supplement via IV PDMP PDMP Reviewed: Not Reviewed Attestations 2 Medical Necessity Statement*: Patient remains with elevated white blood cell count and now has new drainage from an incision from exploratory lap. Needs further evaluation with serial exams Coding Level of Care Code Acute Code for [facility] Fwd Diagnoses Small bowel obstruction K56.609 Nicotine dependence, cigarettes, with other nicotine-induced disorders F17.218 Atherosclerotic heart disease of [place] coronary artery with other forms of angina pectoris I25.118 S/P laparotomy with lysis of adhesions Z98.890 Ileus K56.7 Leukocytosis D72.829
[2024-07-10] MEDS: lidocaine 1% 5 ML in potassium chloride premix 100 ML 26.25 ML IV (17:36)
[2024-07-10 20:30] VITALS: BP 140/65; PULSE 62; RESP 15; TEMP 36.9; O2SAT 96
[2024-07-10] MEDS: trazodone 50 mg Tablet PO (21:39)
[2024-07-11] VITALS (7 sets, daily range): BP systolic 117–169; BP diastolic 58–83; PULSE 54–66; RESP 16–18; TEMP 36.5–36.9; O2SAT 90–94
[2024-07-11] MEDS: MEROPENEM 2,000 MG in sodium chloride 0.9% (plus) 50 ML 100 MG IV ×4 (00:41→23:53)
[2024-07-11] MEDS: HYDROcodone-acetaminophen 5-325 mg Tablet 1 TAB PO ×3 (06:30→15:06)
[2024-07-11] MEDS: isosorbide mononitrate ER 60 mg Tablet PO (08:25)
[2024-07-11] MEDS: carvedilol 6.25 mg Tablet PO ×2 (08:25→16:55)
[2024-07-11] MEDS: polyethylene glycol 3350 Pkt 17 gm PO (08:25)
[2024-07-11] MEDS: amlodipine 5 mg Tablet PO (08:25)
[2024-07-11] MEDS: losartan 50 mg Tablet 100 MG PO (08:25)
[2024-07-11] MEDS: enoxaparin 40 mg/0.4 mL Syringe SUBCUT (08:26)
[2024-07-11] MEDS: vancomycin 1,750 MG/350 ML PIGGYBACK 200 MG IV ×2 (08:31→20:55)
[2024-07-11 12:56] LABS: Basophils % 0.3 %; Eosinophils # 0.4 10^3/uL (0.0-0.8); Eosinophils % 2.8 %; Hematocrit 37.3 % (37-53); Lymphocytes # 0.7 10^3/uL (0.8-4.8); Lymphocytes % 5.2 %; Mean Corpuscular HGB Conc 33.2 g/dL (30-55); Mean Corpuscular Hemoglobin 33.8 pg (27-33); Mean Corpuscular Volume 101.6 fl (82-101); Mean Platelet Volume 9.4 fL (7.4-10.4); Monocytes # 1.1 10^3/uL (0.2-0.9); Monocytes % 8.1 %; Neutrophils # 11.23 10^3/uL (1.8-7.7); Nucleated Red Blood Cells % 0 %; Platelet Count 387 10^3/cmm (157-399); Red Blood Count 3.67 10^6/uL (3.85-5.65); Red Cell Distribution Width 13.9 % (12.1-15.1); White Blood Count 13.54 10^3/uL (3.29-11.43)
[2024-07-11 13:12] LABS: Anion Gap 8.8 (5-19); Blood Urea Nitrogen 10 mg/dL (8-23); C Reactive Protein 5.2 mg/L (0.0-4.9); Calcium 7.8 mg/dL (8.5-10.5); Carbon Dioxide 28 mmol/L (22-29); Chloride 99 mmol/L (98-107); Glucose 174 mg/dL (65-115); Magnesium 1.6 mg/dL (1.7-2.3); Osmolality Calculated 277 mOsm/kg (285-295); Potassium 3.8 mmol/L (3.5-5.1); Sodium 132 mmol/L (136-145)
[2024-07-11 13:17] LABS: Creatinine Clr Calc Pharmacy 91.0083
--- NOTE | 2024-07-11 13:47 | P.PN_ITS ---
Subjective 2 Subjective: Patient seen sitting up in chair. He describes difficulty sleeping. He states his abdomen is much better with less drainage. Vitals/I&O/Wt Last Vital Signs Temp 98.5 F 07/11/24 11:09 Pulse 64 07/11/24 11:09 Resp 16 07/11/24 11:09 BP 117/65 07/11/24 11:09 Pulse Ox 91 07/11/24 11:09 O2 Del Method Room Air 07/11/24 11:09 O2 Flow Rate 1 07/02/24 08:55 07/10/24 07/11/24 07/11/24 22:59 06:59 14:59 Intake Total 275 / 915 880 / 1795 1000 / 1000 Balance 275 / 915 880 / 1795 1000 / 1000 Weight last 48 hrs Weight 75.75 kg Physical Exam 2 Narrative: Alert and oriented to person place time and situation. He remains with mild anxiety regarding the incision leakage Heart regular normal S1-S2 without murmurs clicks gallops or rubs Lungs clear mildly diminished no wheezes rales or rhonchi, with prolonged expiration Abdomen midline scar on a protuberant abdomen from umbilicus to pubis. Middle of incision is now packed per surgery the fluid is serosanguineous I am unable to express drainage with light palpation around wound Extremities no clubbing cyanosis or edema Urinary Catheter Management: Arroyo Latex: Cath Placed During This Visit: yes, but has since been removed by the nurse Reason for Continuing Indwelling Catheter: Other Urinary Catheter Date of Insertion: 07/01/24 Urinary Catheter Time of Insertion: 11:10 Date Urinary Catheter Removed: 07/09/24 Time Urinary Catheter Discontinued: 15:29 Data 07/11/24 12:47 07/11/24 12:47 Other Labs: Lactoferrin Final 08/08/22-1140 Lactoferrin Positive: Elevated levels of fecal lactoferrin detected. Enteric Bacterial Panel by PCR Final 08/09/22-1414 No Shigella/E.coli (EIEC) DNA Detected No Shiga Toxin I/II Genes Detected No Campylobacter DNA Detected No Salmonella DNA Detected Clostridioides Difficile PCR Final 08/08/22-1501 No C. difficile toxin B gene DNA detected Immunochemical Fecal OCB Final 08/08/22-114 IFOB Results: Positive for Occult Blood A&P Assessment and plan (1) Small bowel obstruction: Status post exploratory lap with extensive lysis of adhesions on 06/28/2024 Drainage from incision site. Incision packing changed by Dr. Knight again today.. If packing will need to be changed daily I am not sure home health care will be able to do this including weekends. I recommend jail placement for wound care as well as therapies and nursing care. He is reluctant to do this. At minimum he will likely require home health care. His WBC continues to improve no signs of infection Dr. Adkins had ordered 1 week of full liquid, then 1 week GI soft. cont supplement for protein to assist wound healing. (2) Nicotine dependence, cigarettes, with other nicotine-induced disorders: Patient is a smoker 1 pack/day he declines nicotine patch He tells me today he plans on quitting and he is very happy not smoking. (3) Atherosclerotic heart disease of [place] coronary artery with other forms of angina pectoris: Stable (4) S/P laparotomy with lysis of adhesions: (5) Leukocytosis: Continues with slow improvement Plan As per Dr. Knight she will assess clinically with serial exams and changing packing daily. Dr. Abreu to return tomorrow. At this time patient is able to tolerate a liquid diet he has bowel sounds and having bowel movements. per Dr. Saenz, maintain fulll liquid diet. Given the necessity of frequent abdominal dressing changes and possible need for packing I recommended alf placement for a few weeks since patient has no one who can assist him at home. I do not believe home health care would be sufficient to maintain this incision and drainage issue. I have asked him to speak with family about options and he also declines that saying it is not an option. CM to address with pt/family and surgeon. K improved. on empirir abx Day 6. will continue another day and then d/c PDMP PDMP Reviewed: Not Reviewed Attestations 2 Medical Necessity Statement*: Discharging planning. unable to go home until close follow scheduled. ideally will d/c to [place] for rehab and wound care/drs changes, however pt is resistent. Coding Level of Care Code Acute Code for [facility] Fwd Diagnoses Small bowel obstruction K56.609 Nicotine dependence, cigarettes, with other nicotine-induced disorders F17.218 Atherosclerotic heart disease of [place] coronary artery with other forms of angina pectoris I25.118 S/P laparotomy with lysis of adhesions Z98.890 Leukocytosis, unspecified type D72.829 Leukocytosis type: unspecified
[2024-07-11] MEDS: potassium phosphate (mMol PO4) 15 MMOL in sodium chloride 0.9% (100 ml) 100 ML 47 MMOL IV (15:07)
[2024-07-11] MEDS: magnesium sulfate premix 1 GM/100 ML PIGGYBACK IV (15:07)
--- NOTE | 2024-07-11 16:01 | P.PN_ITS ---
Subjective 2 Subjective: Patient was seen and evaluated at bedside this morning. He is still having some clear drainage from the inferior portion of his midline incision. The amount of fluid that drains has lessened since yesterday. The leakage of fluid is worse when he stands up. He is tolerating a full liquid diet without nausea, vomiting, abdominal bloating, or abdominal pain. He has been having regular bowel movements. He has been voiding without difficulty. The patient states that he does not quite feel up to speed. Vitals/I&O/Wt Last Vital Signs Temp 98.2 F 07/11/24 15:21 Pulse 62 07/11/24 15:21 Resp 16 07/11/24 15:21 BP 137/58 07/11/24 15:21 Pulse Ox 92 07/11/24 15:21 O2 Del Method Room Air 07/11/24 15:21 O2 Flow Rate 1 07/02/24 08:55 07/11/24 07/11/24 07/11/24 06:59 14:59 22:59 Intake Total 880 / 1795 1000 / 1000 100 / 1100 Balance 880 / 1795 1000 / 1000 100 / 1100 Weight last 48 hrs Weight 167 lb Physical Exam 2 Const: COMMON NORMALS: no acute distress and patient oriented x3 HENMT: COMMON NORMALS: normocephalic and atraumatic HEAD & SCALP: n ormocephalic and atraumatic Chest: COMMONS NORMALS: normal inspection of the chest Resp: COMMON NORMALS: normal respiratory effort and No use of accessory muscles GI: COMMON NORMALS: Soft to palpation and non-tender PALPATION: Yes Soft to palpation OTHER: No rebound tenderness, no guarding, and no rigidity. Midline incision: Surgical jean-pierre intact. The subcutaneous tissue is pink and well-perfused. At the inferior aspect of the incision, there are 2 approximately 1 cm in length sections, which have 1/2 inch strip gauze packing within them. A cotton tip applicator was utilized to gently probe the fascia which remains intact. The wound was irrigated with sterile saline and 1/2 inch strip gauze was replaced within the wound. Extremity: COMMON NORMALS: normal to inspection and full ROM Neuro: COMMON NORMALS: patient oriented x3 Psych: COMMON NORMALS: cooperative ATTITUDE: Yes calm Urinary Catheter Management: Arroyo Latex: Cath Placed During This Visit: yes, but has since been removed by the nurse Reason for Continuing Indwelling Catheter: Other Urinary Catheter Date of Insertion: 07/01/24 Urinary Catheter Time of Insertion: 11:10 Date Urinary Catheter Removed: 07/09/24 Time Urinary Catheter Discontinued: 15:29 Data 07/11/24 12:47 07/11/24 12:47 A&P Assessment and plan (1) Small bowel obstruction: (2) S/P laparotomy with lysis of adhesions: -- Small amount of fluid coming from the inferior portion of the incision is clear serosanguineous, it is not opaque, purulent or malodorous. The incision skin edges and adjacent skin are not erythematous or edematous. The subcutaneous tissue is pink and well-perfused without any evidence of necrotic or devitalized tissues. -- The site does not appear acutely infected. Surgical jean-pierre remain intact. -- Continue daily wound care. Irrigate wound and pack with half-inch strip gauze, cover with an outer sterile dressing. -- Otherwise abdominal exam benign, no tenderness to palpation, no rebound tenderness, and no guarding. -- Continue return of bowel function noted. May continue full liquid diet. C ontinue full liquid diet for 1 week following discharge, then advance to a GI soft diet after that as long as full liquid diet remains tolerated. -- Serial abdominal exams. -- Continue to monitor CBC. White blood cell count downtrending. The patient will likely need additional support for wound care, with debility, may benefit from discharge to a fdc facility. May need to discuss with case management tomorrow. PDMP PDMP Reviewed: Not Reviewed Attestations 2 Medical Necessity Statement*: Further monitoring of lab work, vital signs, and wound care. Coding Level of Care Code Acute Code for [facility] Fwd Diagnoses Small bowel obstruction K56.609 S/P laparotomy with lysis of adhesions Z98.890
[2024-07-11] MEDS: trazodone 50 mg Tablet PO (20:55)
[2024-07-11] MEDS: LORazepam 1 mg Tablet PO (20:55)
[2024-07-12 04:00] VITALS: BP 164/71; PULSE 58; RESP 16; TEMP 36.5; O2SAT 90
[2024-07-12 06:41] LABS: Basophils # 0.1 10^3/uL (0.0-0.1); Basophils % 0.4 %; Eosinophils # 0.5 10^3/uL (0.0-0.8); Eosinophils % 3.9 %; Lymphocytes # 0.7 10^3/uL (0.8-4.8); Mean Corpuscular Hemoglobin 33.2 pg (27-33); Mean Corpuscular Volume 100.5 fl (82-101); Monocytes # 1.4 10^3/uL (0.2-0.9); Monocytes % 9.9 %; Neutrophils # 11.02 10^3/uL (1.8-7.7); Neutrophils % 80.1 %; Nucleated Red Blood Cells % 0 %; Platelet Count 396 10^3/cmm (157-399); Red Blood Count 3.98 10^6/uL (3.85-5.65); Red Cell Distribution Width 14.1 % (12.1-15.1); White Blood Count 13.74 10^3/uL (3.29-11.43)
[2024-07-12 06:54] LABS: Blood Urea Nitrogen 8 mg/dL (8-23); Calcium 7.9 mg/dL (8.5-10.5); Carbon Dioxide 31 mmol/L (22-29); Chloride 100 mmol/L (98-107); Creatinine Clr Calc Pharmacy 94.9548; Glucose 79 mg/dL (65-115); Magnesium 1.8 mg/dL (1.7-2.3); Osmolality Calculated 277 mOsm/kg (285-295); Phosphorus 2.3 mg/dL (2.5-4.5); Sodium 135 mmol/L (136-145)
[2024-07-12 06:56] LABS: Anion Gap 7.9 (5-19); Potassium 3.9 mmol/L (3.5-5.1)
[2024-07-12 07:59] VITALS: BP 152/73; PULSE 71; RESP 16
--- NOTE | 2024-07-12 08:40 | P.PN_ITS ---
Subjective 2 Subjective: Is a 73-year-old male who is here for small bowel obstruction and is status post laparotomy with extensive lysis of additions. Had a protracted postoperative course complicated with a prolonged postoperative ileus. Now resolved. Patient is doing very well tolerating full liquid diet. Over the weekend while under the care of Dr. Knight he was noted to have drainage from the lower aspect of his wound, drainage was serosanguineous, 2 jean-pierre were removed and the area was back. This appeared to be a subcutaneous seroma. Tolerating diet having bowel movements no other significant issues Vitals/I&O/Wt Last Vital Signs Temp 97.7 F 07/12/24 04:00 Pulse 71 07/12/24 07:59 Resp 16 07/12/24 07:59 BP 152/73 07/12/24 07:59 Pulse Ox 90 07/12/24 04:00 O2 Del Method Room Air 07/12/24 04:00 O2 Flow Rate 1 07/02/24 08:55 07/11/24 07/12/24 07/12/24 22:59 06:59 14:59 Intake Total 975 / 1975 880 / 2855 480 / 480 Output Total 300 / 300 Balance 675 / 1675 880 / 2555 480 / 480 Weight last 48 hrs Weight 185 lb 11.2 oz Weight 167 lb Physical Exam 2 GI: OTHER: Abdominal exam is benign abdomen is soft nontender distention persist but significantly proved from admission. Good bowel sounds. The wound is healthy and healing well, in the lower aspect of the incisions 2 jean-pierre have been removed I remove the packing the wound appears to be healthy I placed Steri- Strips over the lower opening and left the upper opening to repack. Urinary Catheter Management: Arroyo Latex: Cath Placed During This Visit: yes, but has since been removed by the nurse Reason for Continuing Indwelling Catheter: Other Urinary Catheter Date of Insertion: 07/01/24 Urinary Catheter Time of Insertion: 11:10 Date Urinary Catheter Removed: 07/09/24 Time Urinary Catheter Discontinued: 15:29 Data 07/12/24 05:15 07/12/24 05:15 A&P Assessment and plan (1) Small bowel obstruction: (2) Status post exploratory laparotomy: Plan Patient showing very good progression. At this point he is cleared from the general surgeon standpoint to transition to the outpatient setting either to a nursing facility or home with home care for wound packing. The midline wound should be gently packed with just minimal amount of packing to allow to close over time. I will probably keep the jean-pierre in the skin for another 2 weeks to allow adequate wound healing before removing them. His white count has significantly improved with 13.7 today. Last CRP was 5. Noted to be hyperphosphatemic and those labs were replaced this morning. Patient can follow-up in my clinic in 2 weeks. PDMP PDMP Reviewed: Not Reviewed Attestations 2 Medical Necessity Statement*: Per medical team Coding Level of Care Code Acute Code for Chg Fwd Diagnoses Small bowel obstruction K56.609 Status post exploratory laparotomy Z98.890
[2024-07-12] MEDS: polyethylene glycol 3350 Pkt 17 gm PO (08:45)
[2024-07-12] MEDS: HYDROcodone-acetaminophen 5-325 mg Tablet 1 TAB PO ×2 (08:45→15:01)
[2024-07-12] MEDS: isosorbide mononitrate ER 60 mg Tablet PO (08:45)
[2024-07-12] MEDS: carvedilol 6.25 mg Tablet PO (08:45)
[2024-07-12] MEDS: phosphorus 250 mg Tablet PO (08:45)
[2024-07-12] MEDS: losartan 50 mg Tablet 100 MG PO (08:45)
[2024-07-12] MEDS: amlodipine 5 mg Tablet PO (08:45)
[2024-07-12] MEDS: enoxaparin 40 mg/0.4 mL Syringe SUBCUT (08:45)
[2024-07-12] MEDS: MEROPENEM 2,000 MG in sodium chloride 0.9% (plus) 50 ML 100 MG IV (08:48)
[2024-07-12] MEDS: vancomycin 1,750 MG/350 ML PIGGYBACK 200 MG IV (08:51)
[2024-07-12 11:07] VITALS: BP 163/73; PULSE 74; RESP 16; O2SAT 92
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
--- NOTE | 2024-07-12 15:02 | PC.NURSE ---
This nurse called report to [place] at [facility] at 1500.
[2024-07-12 15:06] VITALS: BP 150/70; PULSE 72; O2SAT 95
== END 2024-07-12 15:08 | disposition skilled nursing facility (03) | DRG 336 ==
LOC: ER 17:27 → CSU 18:38 → MEDSURG 06-29 15:07 → ICU 07-03 21:26 → MEDSURG 07-07 16:00
PROVIDERS: Internal Medicine; Physician Assistant; Surgery; Admitting Provider Internal Medicine; Emergency Provider Student in an Organized Health Care Education/Training Program; PCP Electrodiagnostic Medicine; Visit Provider Internal Medicine
PROC: 0DN80ZZ Release Small Intestine, Open Approach (ICD-10-PCS; CPT 49000; principal; 2024-07-01 13:00)
PROC: 0DN80ZZ Release Small Intestine, Open Approach (ICD-10-PCS; 2024-07-01 13:00)
DX: K56.50 Intestinal adhesions [bands], unspecified as to partial versus complete obstruction (principal); K91.89 Other postprocedural complications and disorders of digestive system; L76.34 Postprocedural seroma of skin and subcutaneous tissue following other procedure; K44.9 Diaphragmatic hernia without obstruction or gangrene; K56.7 Ileus, unspecified; I16.0 Hypertensive urgency; I10 Essential (primary) hypertension; I25.10 Atherosclerotic heart disease of native coronary artery without angina pectoris; F17.210 Nicotine dependence, cigarettes, uncomplicated; J44.9 Chronic obstructive pulmonary disease, unspecified; E78.5 Hyperlipidemia, unspecified; E11.9 Type 2 diabetes mellitus without complications; E89.0 Postprocedural hypothyroidism; Z90.81 Acquired absence of spleen; Y83.8 Other surgical procedures as the cause of abnormal reaction of the patient, or of later complication, without mention of misadventure at the time of the procedure; Y92.239 Unspecified place in hospital as the place of occurrence of the external cause; Z90.49 Acquired absence of other specified parts of digestive tract; Z95.5 Presence of coronary angioplasty implant and graft; Z79.82 Long term (current) use of aspirin; Z79.02 Long term (current) use of antithrombotics/antiplatelets; Z79.84 Long term (current) use of oral hypoglycemic drugs
CPT/HCPCS: 12345; 36415; 36416; 36573; 36592; 51702; 71045; 74018; 74176; 74177; 80048; 80053; 80202; 81001; 82962; 83605; 83690; 83735; 84100; 85007; 85025; 86140; 87493; 88305; 96361; 96372; 96374; 96376; 97116; 97161; 99285; C1751; J0131; J0330; J0360; J1100; J1171; J1650; J2060; J2185; J2405; J2543; J2704; J3010; J3370; J3372; J3475; J3480; J3490; J7030; J7040; J9999; Q9963

== ENCOUNTER → 2024-07-21 09:43 | Outpatient (BNVA) | payer MEDICARE, OTHER, SELFPAY | PROVIDERS: PCP Electrodiagnostic Medicine; Visit Provider Surgery | DX: Z09 Encounter for follow-up examination after completed treatment for conditions other than malignant neoplasm (principal) | CPT/HCPCS: 99024 ==

== ENCOUNTER → 2024-07-27 10:13 | Outpatient (BNVA) | payer MEDICARE, OTHER, SELFPAY | PROVIDERS: PCP Electrodiagnostic Medicine; Visit Provider Surgery | DX: Z98.890 Other specified postprocedural states (principal) | CPT/HCPCS: 99214 ==

== ENCOUNTER → 2024-08-30 15:44 | Outpatient (BNVA) | payer MEDICARE, OTHER, SELFPAY | PROVIDERS: PCP Electrodiagnostic Medicine; Visit Provider Internal Medicine Cardiovascular Disease | DX: I25.10 Atherosclerotic heart disease of native coronary artery without angina pectoris (principal); I77.9 Disorder of arteries and arterioles, unspecified; I10 Essential (primary) hypertension; E78.5 Hyperlipidemia, unspecified; Z79.02 Long term (current) use of antithrombotics/antiplatelets; Z79.82 Long term (current) use of aspirin; Z95.5 Presence of coronary angioplasty implant and graft; F17.200 Nicotine dependence, unspecified, uncomplicated | CPT/HCPCS: 99214 ==